=== PATIENT | male | born 1990 | race Caucasian/White ===

== ENCOUNTER 2018-08-01 15:58 | Inpatient (IN) | payer MEDICAID ==
[2018-08-01] MEDS ORDERED: SODIUM CHLORIDE 0.9% 1,000 ML IV STA ×3 (16:50→19:02)
[2018-08-01] MEDS ORDERED: AZITHROMYCIN 500 MG in SODIUM CHLORIDE 0.9% 250 ML IVPB STA (16:50)
[2018-08-01] MEDS ORDERED: methylPREDNISolone SOD SUCCI 125 MG/2 ML VIAL IV STA (16:50)
[2018-08-01] MEDS ORDERED: IPRATROPIUM-ALBUTEROL 3 ML NEB INHALATION STA (16:50)
[2018-08-01 17:17] LABS: Basophils % (A) 1 %; Eosinophils % (A) 0 %; HCT 41.9 % (39.0-53.0); HGB 13.8 gm/dL (13.0-17.5); Lymphocytes # (A) 1.3 k/uL (1.0-4.8); Lymphocytes % (A) 23 %; MCH 27.5 pg (25.0-35.0); MCV 83.5 fL (80.0-100.0); Mean Platelet Volume 7.2; Monocytes # (A) 0.2 k/uL (0-1.0); Monocytes % (A) 3 %; Neutrophils # (A) 3.9 k/uL (1.3-7.7); Neutrophils % (A) 69 %; Platelet Count 219 k/uL (150-450); RBC 5.01 m/uL (4.30-5.90); RDW 13.2 % (11.5-15.5); WBC 5.6 k/uL (3.8-10.6)
[2018-08-01 17:20] LABS: Albumin 3.4 g/dL (3.5-5.0); Calcium 8.5 mg/dL (8.4-10.2); Total Bilirubin 0.7 mg/dL (0.2-1.3); Total Protein 6.6 g/dL (6.3-8.2)
[2018-08-01 17:21] LABS: Potassium 4.5 mmol/L (3.5-5.1)
[2018-08-01] MEDS ORDERED: KETOROLAC 30 MG/ML 1 ML VIAL IVP STA (17:22)
[2018-08-01] MEDS ORDERED: ACETAMINOPHEN TAB 500 MG TAB PO STA (17:22)
--- NOTE | 2018-08-01 17:22 | ED ---
SOB HPI - General Chief Complaint: Shortness of Breath Stated Complaint: DARIN Source: patient, EMS Mode of arrival: EMS Limitations: no limitations - History of Present Illness Initial Comments: This 28-year-old white male presents with a complaint of some shortness of breath with chest been present for approximately 6 days. He states that he was seen at [facility] approximate 4 days ago and was prescribed some doxycycline and Tessalon Perles. He has had a significant cough with dark yellow production. He's ran a fever of approximate 100. He states that he does not have any known pulmonary problems. He does not smoke or utilize tobacco but states that he works in a [employer]. He has had some associated weakness. He has had decreased sleep due to the cough. He states that the medications do not seem to be helping. He was seen at [facility] earlier today and sent to the emergency department as his pulse ox was in the low 80s. In via ambulance. He had a couple of breathing treatments and med express in the ambulance and states that he feels slightly improved. He denies any other complaints or modifying factors. - Related Data Home Medications Medication Instructions Recorded Confirmed No Known Home Medications 08/01/18 08/01/18 Allergies Allergy/AdvReac Type Severity Reaction Status Date / Time No Known Allergies Allergy Verified 08/01/18 16:35 Review of Systems ROS Statement: Those systems with pertinent positive or pertinent negative responses have been documented in the HPI. ROS Other: All systems not noted in ROS Statement are negative. Past Medical History Past Medical History: No Reported History History of Any Multi-Drug Resistant Organisms: None Reported Past Surgical History: No Surgical Hx Reported Past Psychological History: No Psychological Hx Reported Smoking Status: Never smoker Past Alcohol Use History: Occasional Past Drug Use History: None Reported General Exam - General Exam Comments Initial Comments: GENERAL: The patient is well nourished and well hydrated. VITAL SIGNS: Heart rate, blood pressure, respiratory rate reviewed as recorded in nurse's notes. EYES: Pupils are round and reactive. Extraocular movements are intact. No conjunctival / lid redness or swelling. ENT: No external evidence of injury, swelling, or ecchymosis. Airway is patent. Throat is clear. NECK: Nontender. No swelling or evidence of injury. No subcutaneous emphysema. Trachea is midline. No thyroid mass. HEART: Regular rate and rhythm. Good peripheral pulses. LUNGS/CHEST: Decreased aeration noted bilaterally. No rales, rhonchi, or wheezes. No ecchymosis, subcutaneous emphysema, or tenderness. ABDOMEN: Abdomen soft without tenderness. No palpable masses or organomegaly. No peritoneal signs. No abdominal wall swelling or ecchymosis. Abdomen is obese. EXTREMITIES: No extremity tenderness. Normal muscle tone and function. No thoracolumbar tenderness. NEUROLOGIC: Sensation is grossly intact. Cranial nerve exam reveals face is symmetrical, tongue is midline, speech is clear. SKIN: No abrasions or ecchymosis is noted. No induration or masses noted. PSYCHIATRIC: Alert and oriented. Appropriate behavior and judgment. Limitations: no limitations Course Vital Signs 08/01/18 08/01/18 08/01/18 16:14 16:30 17:00 Temperature 100.4 F H Pulse Rate 102 H Respiratory 20 Rate Blood Pressure 141/96 141/96 138/87 O2 Sat by Pulse 94 L 95 94 L Oximetry 08/01/18 08/01/18 08/01/18 17:13 17:22 17:30 Temperature Pulse Rate 84 91 Respiratory Rate Blood Pressure 150/77 O2 Sat by Pulse 95 Oximetry 08/01/18 08/01/18 18:00 18:30 Temperature Pulse Rate Respiratory Rate Blood Pressure 161/91 148/93 O2 Sat by Pulse 94 L 95 Oximetry Medical Decision Making - Medical Decision Making The patient is seen and examined. All diagnostics are reviewed. An IV is established and he is hydrated. He also receives some Rocephin and Zithromax intravenously. He receives a DuoNeb breathing treatment as well as Solu-Medrol intravenously. The laboratory does show elevation of the CPK as well as the troponin the white blood cell count is normal. The chest x-ray shows bilateral pneumonia. His felt clinically that he has pneumonia as well. His EKG shows a normal sinus rhythm at a rate of 75. There is no acute ST T-wave changes other than T-wave inversion in 1 and aVL. His MS intervals 172, QRS duration is 112, QTC intervals 439. This felt as though he would benefit from admission to the hospital. His oxygenation was in the low 80s at the urgent care. He is agreeable. The case is discussed with internal medicine and they're agreeable with admission. - Lab Data Result diagrams: 08/01/18 16:11 08/01/18 16:11 Lab Results 08/01/18 08/01/18 08/01/18 Range/Units 16:11 16:11 16:11 WBC 5.6 (3.8-10.6) k/uL RBC 5.01 (4.30-5.90) m/uL Hgb 13.8 (13.0-17.5) gm/dL Hct 41.9 (39.0-53.0) % MCV 83.5 (80.0-100.0) fL MCH 27.5 (25.0-35.0) pg MCHC 33.0 (31.0-37.0) g/dL RDW 13.2 (11.5-15.5) % Plt Count 219 (150-450) k/uL Neutrophils % 69 % Lymphocytes % 23 % Monocytes % 3 % Eosinophils % 0 % Basophils % 1 % Neutrophils # 3.9 (1.3-7.7) k/uL Lymphocytes # 1.3 (1.0-4.8) k/uL Monocytes # 0.2 (0-1.0) k/uL Eosinophils # 0.0 (0-0.7) k/uL Basophils # 0.0 (0-0.2) k/uL PT (9.0-12.0) sec INR (<1.2) APTT (22.0-30.0) sec Sodium 132 L (137-145) mmol/L Potassium 4.5 (3.5-5.1) mmol/L Chloride 98 (98-107) mmol/L Carbon Dioxide 24 (22-30) mmol/L Anion Gap 10 mmol/L BUN 25 H (9-20) mg/dL Creatinine 1.25 (0.66-1.25) mg/dL Est GFR (CKD-EPI)AfAm 89 (>60 ml/min/1.73 sqM) Est GFR (CKD-EPI)NonAf 77 (>60 ml/min/1.73 sqM) Glucose 104 H (74-99) mg/dL Calcium 8.5 (8.4-10.2) mg/dL Total Bilirubin 0.7 (0.2-1.3) mg/dL AST 135 H (17-59) U/L ALT 54 (21-72) U/L Alkaline Phosphatase 62 (38-126) U/L Total Creatine Kinase 5198 H* (55-170) U/L CK-MB (CK-2) 6.6 H (0.0-2.4) ng/mL CK-MB (CK-2) Rel Index Troponin I 0.174 H* (0.000-0.034) ng/mL NT-Pro-B Natriuret Pep pg/mL Total Protein 6.6 (6.3-8.2) g/dL Albumin 3.4 L (3.5-5.0) g/dL 08/01/18 08/01/18 Range/Units 16:11 16:11 WBC (3.8-10.6) k/uL RBC (4.30-5.90) m/uL Hgb (13.0-17.5) gm/dL Hct (39.0-53.0) % MCV (80.0-100.0) fL MCH (25.0-35.0) pg MCHC (31.0-37.0) g/dL RDW (11.5-15.5) % Plt Count (150-450) k/uL Neutrophils % % Lymphocytes % % Monocytes % % Eosinophils % % Basophils % % Neutrophils # (1.3-7.7) k/uL Lymphocytes # (1.0-4.8) k/uL Monocytes # (0-1.0) k/uL Eosinophils # (0-0.7) k/uL Basophils # (0-0.2) k/uL PT 10.7 (9.0-12.0) sec INR 1.1 (<1.2) APTT 26.7 (22.0-30.0) sec Sodium (137-145) mmol/L Potassium (3.5-5.1) mmol/L Chloride (98-107) mmol/L Carbon Dioxide (22-30) mmol/L Anion Gap mmol/L BUN (9-20) mg/dL Creatinine (0.66-1.25) mg/dL Est GFR (CKD-EPI)AfAm (>60 ml/min/1.73 sqM) Est GFR (CKD-EPI)NonAf (>60 ml/min/1.73 sqM) Glucose (74-99) mg/dL Calcium (8.4-10.2) mg/dL Total Bilirubin (0.2-1.3) mg/dL AST (17-59) U/L ALT (21-72) U/L Alkaline Phosphatase (38-126) U/L Total Creatine Kinase (55-170) U/L CK-MB (CK-2) (0.0-2.4) ng/mL CK-MB (CK-2) Rel Index Troponin I (0.000-0.034) ng/mL NT-Pro-B Natriuret Pep 486 pg/mL Total Protein (6.3-8.2) g/dL Albumin (3.5-5.0) g/dL Disposition Clinical Impression: Acute respiratory failure, Dyspnea, Hypoxia, Fever, Morbid obesity, Pneumonia, Elevated CPK, Elevated troponin Disposition: ADMITTED IP TO THIS HOSP Condition: Fair Is patient prescribed a controlled substance at d/c from ED?: No Time of Disposition: 19:13 Decision Date: 08/01/18 Decision Time: 19:14
[2018-08-01 17:28] LABS: INR 1.1 (<1.2); Partial Thromboplastin Time 26.7 sec (22.0-30.0); Prothrombin Time 10.7 sec (9.0-12.0)
[2018-08-01 17:35] LABS: Creatine Kinase MB 6.6 ng/mL (0.0-2.4)
[2018-08-01 17:47] LABS: Troponin I 0.174 ng/mL (0.000-0.034)
--- NOTE | 2018-08-01 18:30 | XR ---
EXAMINATION: XR chest 2V DATE AND TIME: 08/01/2018 5:54 PM CLINICAL INDICATION: difficulty breathing TECHNIQUE: PA and lateral COMPARISON: None. FINDINGS: There are innumerable ill-defined consolidative opacities throughout the bilateral lungs, in the uppe r, mid and lower lung zones. The pleural spaces appear to be negative. Cardiac silhouette is mildly enlarged. No definite acute skeletal or soft tissue findings. IMPRESSION: STRIKING MULTIFOCAL BILATERAL BRONCHOPNEUMONIA RADIOGRAPHIC PATTERN.
[2018-08-01] MEDS ORDERED: PNEUMONIA PROTOCOL UTILIZED 1 EACH MISC PO PRN (19:14)
[2018-08-01] MEDS ORDERED: ACETAMINOPHEN TAB 500 MG TAB PO PRN (19:18)
[2018-08-01] MEDS ORDERED: OSELTAMIVIR 75 MG CAP PO STA (20:23)
[2018-08-01 23:24] LABS: Creatine Kinase MB 7.5 ng/mL (0.0-2.4)
[2018-08-01 23:55] LABS: Troponin I 0.142 ng/mL (0.000-0.034)
--- NOTE | 2018-08-02 00:15 | P.HPIM ---
History of Present Illness H&P Date: 08/02/18 Chief Complaint: coughing , chest pain 28-year-old male with no significant past medical history. Patient presented to the hospital due to worsening shortness of breath and chest pain over the past 1 week. Patient's symptoms started 1 week ago as diffuse chest pain or shortness of breath and frequent coughing productive of yellowish sputum with component of pleuritic chest pain on top. Patient also noticed some attacks of fever with temps ranging in the 100 and high drainage. Patient seek medical advice went to urgent care few days ago where he got prescribed cough suppressant and doxycycline. Patient noticed no improvement in his symptoms and today he was getting worse having a really hard time breathing he went back to the urgent care and was found to be hypoxic with oxygen saturation in the 80s. For which she was sent to the ER. Further testing in the ER showed flu a positive, elevated cardiac enzymes, elevated creatine kinase, EKG showing poor R-wave progression in the precordial leads along with T-wave inversion in lead 1 and aVL. Patient was admitted for community-acquired pneumonia superimposing acute flu A, with possible underlying myocarditis Patient is currently sleeping reports that his breathing is getting better after receiving breathing treatments in the ED, denies any current chest pain, denies any GI bleeding denies any abdominal pain nausea vomiting denies any changes in his bowel or urinary habits denies any recent traveling or sick contacts. Patient does admit to generalized fatigue and malaise and feeling very sick overall. Review of Systems Pertinent positives as noted in HPI. All other systems were reviewed and are negative Past Medical History Past Medical History: No Reported History Additional Past Medical History / Comment(s): pt denies any medical problems History of Any Multi-Drug Resistant Organisms: None Reported Past Surgical History: No Surgical Hx Reported Additional Past Surgical History / Comment(s): pt denies having had any sx Past Anesthesia/Blood Transfusion Reactions: No Reported Reaction Additional Past Anesthesia/Blood Transfusion Reaction / Comment(s): pt stated never had any sx, never recieved any blood Smoking Status: Never smoker - Past Family History Mother Family Medical History: Cancer, Diabetes Mellitus Additional Family Medical History / Comment(s): breast cancer Father Family Medical History: Congestive Heart Failure (CHF), Coronary Artery Disease (CAD), Diabetes Mellitus Additional Family Medical History / Comment(s): heart cath w/stents prior to quad cabg Medications and Allergies Home Medications Medication Instructions Recorded Confirmed Type No Known Home Medications 08/01/18 08/01/18 History Allergies Allergy/AdvReac Type Severity Reaction Status Date / Time No Known Allergies Allergy Verified 08/01/18 16:35 Physical Exam Vitals: Vital Signs Temp Pulse Resp BP Pulse Ox 08/01/18 20:01 73 18 149/84 96 08/01/18 19:46 98.8 F 79 18 156/90 96 08/01/18 18:30 148/93 95 08/01/18 18:00 161/91 94 L 08/01/18 17:30 150/77 95 08/01/18 17:22 91 08/01/18 17:13 84 08/01/18 17:00 138/87 94 L 08/01/18 16:30 141/96 95 08/01/18 16:14 100.4 F H 102 H 20 141/96 94 L Intake and Output 08/01/18 08/01/18 08/02/18 14:59 22:59 06:59 Intake Total 1480 Balance 1480 Intake: IV 1000 Sodium Chloride 0.9% 1, 1000 000 ml @ 100 mls/hr IV . Q10H STA Rx#:[id number] Oral 480 Other: Weight 158.757 kg Constitutional: No acute distress, conversant, pleasant, patient was sleeping and was diaphoretic, morbidly obese Eyes: Anicteric sclerae, moist conjunctiva, no lid-lag Pupils equal round reactive to light ENMT: NC/AT Oropharynx clear, no erythema, or exudates Neck: Supple, FROM, no masses, or JVD No carotid bruits No thyromegaly Lungs: Good breath sounds bilaterally harsh vesicular breathing throughout Clear to percussion Normal respiratory effort, no accessory muscle use Cardiovascular: Heart regular in rate and rhythm, No murmurs, gallops, or rubs No peripheral edema Abdominal: Soft Nontender, no guarding, rebound or rigidity Abdomen moving with respiration Normoactive bowel sounds No hepatomegaly, No splenomegaly No palpable mass No abdominal wall hernia noted Skin: Normal temperature, tone, texture, turgor No induration No subcutaneous nodules No rash, lesions No ulcers Extremities: No digital cyanosis No clubbing Pedal pulses intact and symmetrical Radial pulses intact and symmetrical No calf tenderness Psychiatric: Alert and oriented to person, place and time Appropriate affect fair judgment Neuro Muscles Strength 5/5 in all 4 extremities Sensation to light touch grossly present throughout Cranial nerves II-XII grossly intact No focal sensory deficits Lymphatics: no palpable cervical or supraclavicular , or inguinal lymph nodes Results CBC & Chem 7: 08/01/18 16:11 08/01/18 16:11 Labs: Abnormal Lab Results - Last 24 Hours (Table) 08/01/18 08/01/18 08/01/18 Range/Units 16:11 16:11 19:44 Sodium 132 L (137-145) mmol/L BUN 25 H (9-20) mg/dL Glucose 104 H (74-99) mg/dL AST 135 H (17-59) U/L Total Creatine Kinase 5198 H* (55-170) U/L CK-MB (CK-2) 6.6 H (0.0-2.4) ng/mL Troponin I 0.174 H* (0.000-0.034) ng/mL Albumin 3.4 L (3.5-5.0) g/dL Influenza Type A RNA Detected H (Not Detectd) Thrombosis Risk Factor Assmnt - Choose All That Apply Any of the Below Risk Factors Present?: Yes Each Factor Represents 1 point: Obesity (BMI >25) Other Risk Factors: No Thrombosis Risk Factor Assessment Total Risk Factor Score: 1 Thrombosis Risk Factor Assessment Level: Low Risk Assessment and Plan Assessment: 28-year-old male with no significant past medical history, admitted as inpatient with anticipated length of stay of more than 48 hours due to coming to acquire pneumonia superimposing influenza type A, with possible underlying myocarditis. Patient admitted to the cardiac floor, continued trending cardiac enzymes, echocardiogram in the morning, cardiology consult. Avoid NSAIDs Plan: Acute myocarditis Acute community-acquired pneumonia, with underlying influenza type A Cardiac monitoring Trend cardiac enzymes Cardiology consult Echocardiogram Tylenol for fevers Continue with Rocephin and azithromycin for possible superimposed bacterial pneumonia Tamiflu twice a day ( due to severity of illness despite patient possibly being out of the most effective therapeutic window of initial 48 hours of symptom onset) Breathing treatments when necessary Oxygen through nasal cannula as needed Rhabdomyolysis secondary to underlying flu IV fluid hydration Follow-up CK levels DVT prophylaxis on Lovenox Morbid obesity Outpatient follow-up Surrogate decision-maker: Patient's father CODE STATUS: Full code Discussed with: Patient, ER, RN Anticipated discharge: 48-[address]: Home A total of 60 minutes was spent on the care of this complex patient more than 50 % of the time was spent in counseling and care coordination.
[2018-08-02] MEDS ORDERED: guaiFENesin-DM 100-10MG/5ML 10 ML CUP PO PRN (01:51)
[2018-08-02 04:15] LABS: Basophils % (A) 0 %; Eosinophils # (A) 0.1 k/uL (0-0.7); Eosinophils % (A) 1 %; HCT 43.8 % (39.0-53.0); HGB 14.4 gm/dL (13.0-17.5); Lymphocytes % (A) 12 %; MCHC 32.9 g/dL (31.0-37.0); Monocytes # (A) 0.2 k/uL (0-1.0); Monocytes % (A) 2 %; Neutrophils # (A) 6.6 k/uL (1.3-7.7); Neutrophils % (A) 83 %; Platelet Count 209 k/uL (150-450); RBC 5.15 m/uL (4.30-5.90); RDW 13.5 % (11.5-15.5); WBC 7.9 k/uL (3.8-10.6)
[2018-08-02 04:25] LABS: ALT 67 U/L (21-72); AST 125 U/L (17-59); Albumin 3.2 g/dL (3.5-5.0); Alkaline Phosphatase 66 U/L (38-126); Anion Gap 7 mmol/L; Blood Urea Nitrogen 25 mg/dL (9-20); Calcium 8.4 mg/dL (8.4-10.2); Carbon Dioxide 29 mmol/L (22-30); Chloride 100 mmol/L (98-107); Glucose 169 mg/dL (74-99); Potassium 4.5 mmol/L (3.5-5.1); Sodium 136 mmol/L (137-145); Total Bilirubin 0.4 mg/dL (0.2-1.3); Total Protein 6.3 g/dL (6.3-8.2)
[2018-08-02 05:04] LABS: Creatine Kinase 4683 U/L (55-170)
[2018-08-02 05:06] LABS: Creatine Kinase MB 9.7 ng/mL (0.0-2.4)
[2018-08-02 05:11] LABS: Troponin I 0.07 ng/mL (0.000-0.034)
[2018-08-02 06:52] LABS: Glucose,Whole Blood 178 mg/dL (75-99)
[2018-08-02] MEDS: ENOXAPARIN 40 MG/0.4 ML SYRINGE SQ SCH (09:03)
[2018-08-02] MEDS: OSELTAMIVIR 75 MG CAP PO SCH ×2 (09:03→20:41)
[2018-08-02] MEDS: SODIUM CHLORIDE 0.9% 1,000 ML IV SCH ×3 (09:04→20:41)
--- NOTE | 2018-08-02 09:48 | P.PN ---
Subjective Progress Note Date: 08/02/18 Principal diagnosis: shortness of breath Patient is a 28-year-old male with a past medical history of morbid obesity, family history of coronary artery disease and congestive heart failure who presented to the ER with complaints of shortness of breath and chest tightness. In the ER he underwent extensive testing. He was found to have influenza A, elevated troponin, elevated creatinine kinase, and EKG showing poor R-wave progression and T-wave inversion. He was in his given a dose of Tamiflu, and started on Rocephin and Zithromax. There was concern for influenza A with superimposed pneumonia and possible myocarditis. He was subsequently admitted to the cardiac unit and cardiology was consulted. Serial troponins remained elevated. His CPK downtrend and slightly after IV fluids. Patient seen and examined at bedside. He states he is feeling much better than yesterday. His shortness of breath is improved. He is still very diaphoretic. His chest tightness is improved. His cough is more easily productive. No nausea or vomiting. No diarrhea. No edema. He has only urinated once all night despite IV fluid administration. Objective - Vital Signs Vital signs: Vital Signs Temp 98.7 F 08/02/18 09:08 Pulse 85 08/02/18 09:08 Resp 22 08/02/18 09:08 BP 142/86 08/02/18 09:08 Pulse Ox 91 L 08/02/18 09:08 Intake & Output 08/01/18 08/02/18 08/02/18 18:59 06:59 18:59 Intake Total 3440 Balance 3440 Weight 158.757 kg 216.5 kg Intake: IV 2000 Sodium Chloride 0.9% 1, 2000 000 ml @ 100 mls/hr IV . Q10H STA Rx#:[id number] Oral 1440 Other: Voiding Method Toilet Toilet - Exam General: Ill appearing, mild distress, obese, appears at stated age Derm: warm, diaphoretic Head: atraumatic, normocephalic, symmetric Eyes: EOMI, no lid lag, anicteric sclera Mouth: no lip lesion, mucus membranes moist Cardiovascular: S1S2 reg, no murmur, positive posterior tibial pulse bilateral, Lungs: Rhonchi bilateral bases with 3 word conversational dyspnea, no accessory muscle use Abdominal: soft, nontender to palpation, no guarding, no appreciable organomegaly Ext: no gross muscle atrophy, no edema, no contractures Neuro: CN II-XI grossly intact, no focal neuro deficits Psych: Alert, oriented, appropriate affect - Labs CBC & Chem 7: 08/02/18 03:56 08/02/18 03:56 Labs: Abnormal Lab Results - Last 24 Hours (Table) 08/01/18 08/01/18 08/01/18 Range/Units 16:11 16:11 19:44 Sodium 132 L (137-145) mmol/L BUN 25 H (9-20) mg/dL Glucose 104 H (74-99) mg/dL POC Glucose (mg/dL) (75-99) mg/dL AST 135 H (17-59) U/L Creatine Kinase (55-170) U/L Total Creatine Kinase 5198 H* (55-170) U/L CK-MB (CK-2) 6.6 H (0.0-2.4) ng/mL Troponin I 0.174 H* (0.000-0.034) ng/mL Albumin 3.4 L (3.5-5.0) g/dL Influenza Type A RNA Detected H (Not Detectd) 08/01/18 08/02/18 08/02/18 Range/Units 22:32 03:56 03:56 Sodium 136 L (137-145) mmol/L BUN 25 H (9-20) mg/dL Glucose 169 H (74-99) mg/dL POC Glucose (mg/dL) (75-99) mg/dL AST 125 H (17-59) U/L Creatine Kinase 4683 H* (55-170) U/L Total Creatine Kinase 5067 H* 4769 H* (55-170) U/L CK-MB (CK-2) 7.5 H 9.7 H (0.0-2.4) ng/mL Troponin I 0.142 H* 0.070 H* (0.000-0.034) ng/mL Albumin 3.2 L (3.5-5.0) g/dL Influenza Type A RNA (Not Detectd) 08/02/18 Range/Units 06:18 Sodium (137-145) mmol/L BUN (9-20) mg/dL Glucose (74-99) mg/dL POC Glucose (mg/dL) 178 H (75-99) mg/dL AST (17-59) U/L Creatine Kinase (55-170) U/L Total Creatine Kinase (55-170) U/L CK-MB (CK-2) (0.0-2.4) ng/mL Troponin I (0.000-0.034) ng/mL Albumin (3.5-5.0) g/dL Influenza Type A RNA (Not Detectd) Assessment and Plan Assessment: Pneumonia, probable post-influenza along with influenza A -Continue with Rocephin and Zithromax, and Tamiflu. Would use Tamiflu despite limited evidence of severity of illness despite being greater than the treatment window as per current CDC guidelines -Follow chest x-ray until clear -Pulmonary hygiene -Sputum culture -DuoNeb Elevated troponin with concerns for myocarditis. Elevated troponin may be reflective of overall elevated CK. -Await echocardiogram -Await cardiology consultation -Telemetry Mild rhabdomyolysis -Continue with IV fluids increased to 150 mL/h -Serial CPKs every 6 hours Hyponatremia secondary to dehydration, improving -IV fluids -Repeat basic metabolic profile in a.m. -Encourage oral fluid intake Acute hypoxic respiratory failure -Pulmonary hygiene -DuoNeb's -Treatment of pneumonia Morbid obesity with BMI 63 -Structured outpatient weight loss DVT prophylaxis: Lovenox Discussed with: Patient, nursing Anticipated discharge: 48-[address]: Home A total of 35 minutes was spent on the care of this complex patient more than 50 % of the time was spent in counseling and care coordination.
--- NOTE | 2018-08-02 10:40 | P.CRDCN ---
History of Present Illness Consult date: 08/02/18 Requesting physician: Dillon Lerner Reason for Consult (text): Abnormal cardiac enzymes Chief complaint: Fever, cough, generalized aches and pains History of present illness: This is a 28-year-old gentleman with past medical history significant for morbid obesity, family history of premature coronary artery disease and congestive heart failure, he presented to the hospital with symptoms of shortness of breath with associated productive cough and chest tightness. He states that he went to a walk-in clinic to get evaluated and was given some medications for cough, however his symptoms continued to worsen and therefore he came to the hospital for further evaluation. Patient ruled in for influenza A, he was given a dose of Tamiflu and started on Rocephin and Zithromax. There is a concern patient may have a superimposed pneumonia and possible myocarditis , CK-MB and troponins are abnormal and for this reason a cardiology consultation was requested. Blood pressure on arrival here 140/90 with a heart rate in the low 100s, temperature 100.4, 94% on 5 L of oxygen. Blood pressure this morning 142/80, 91% on 4 L of oxygen. White blood cell count is normal, hemoglobin 14.4, platelet count 209. Sodium 136, potassium 4.5, BUN 25, creatinine 1.1. AST 125, ALT normal. Total creatinine kinase 5198, 5067, 4769. MB 6.6, 7.5, 9.7. Troponin 0.17, 0.14, 0.07. Influenza A positive BNP 486. At the time of my examination this morning, patient denies any chest discomfort, he is quite short of breath, very diaphoretic, and continues to cough up significant amounts of yellow to maier sputum. Chest x-ray shows striking multi focal bilateral bronchopneumonia. EKG shows a normal sinus rhythm with T wave inversion noted in the lateral leads. Past Medical History Past Medical History: No Reported History Additional Past Medical History / Comment(s): pt denies any medical problems History of Any Multi-Drug Resistant Organisms: None Reported Past Surgical History: No Surgical Hx Reported Additional Past Surgical History / Comment(s): pt denies having had any sx Past Anesthesia/Blood Transfusion Reactions: No Reported Reaction Additional Past Anesthesia/Blood Transfusion Reaction / Comment(s): pt stated never had any sx, never recieved any blood Smoking Status: Never smoker - Past Family History Mother Family Medical History: Cancer, Diabetes Mellitus Additional Family Medical History / Comment(s): breast cancer Father Family Medical History: Congestive Heart Failure (CHF), Coronary Artery Disease (CAD), Diabetes Mellitus Additional Family Medical History / Comment(s): heart cath w/stents prior to quad cabg Medications and Allergies Home Medications Medication Instructions Recorded Confirmed Type No Known Home Medications 08/01/18 08/01/18 History Allergies Allergy/AdvReac Type Severity Reaction Status Date / Time No Known Allergies Allergy Verified 08/01/18 16:35 Physical Exam Vitals: Vital Signs Temp Pulse Pulse Resp BP BP Pulse Ox 08/02/18 09:08 98.7 F 85 20 142/86 91 L 08/02/18 04:00 97.1 F L 68 22 152/87 98 08/02/18 00:00 97.8 F 71 22 164/74 92 L 08/01/18 20:01 73 18 149/84 96 08/01/18 19:46 98.8 F 79 18 156/90 96 08/01/18 18:30 148/93 95 08/01/18 18:00 161/91 94 L 08/01/18 17:30 150/77 95 08/01/18 17:22 91 08/01/18 17:13 84 08/01/18 17:00 138/87 94 L 08/01/18 16:30 141/96 95 08/01/18 16:14 100.4 F H 102 H 20 141/96 94 L Intake and Output 08/01/18 08/02/18 08/02/18 22:59 06:59 14:59 Intake Total 1480 1960 Balance 1480 1960 Intake: IV 1000 1000 Sodium Chloride 0.9% 1, 1000 1000 000 ml @ 100 mls/hr IV . Q10H STA Rx#:[id number] Oral 480 960 Other: Voiding Method Toilet Toilet Weight 158.757 kg 216.5 kg PHYSICAL EXAMINATION: GENERAL: Ill-appearing, obese, in mild distress with his breathing this morning. Diaphoretic. HEENT: Head is atraumatic, normocephalic. Pupils equal, round. Sclera anicteric. Conjunctiva are clear. Mucous membranes of the mouth are moist. Neck is supple. There is no elevated jugular venous pressure. No carotid bruit is heard. HEART EXAMINATION: Heart S1, S2 normal. No murmur or gallop heard. CHEST EXAMINATION: Ends reveal scattered coarse rhonchi throughout. ABDOMEN: Soft, obese, nontender. Bowel sounds are heard. No organomegaly noted. EXTREMITIES: 1+ peripheral pulses with evidence of peripheral edema and no calf tenderness noted. NEUROLOGIC patient is awake, alert and oriented X3. . Results 08/02/18 03:56 08/02/18 03:56 Cardiac Enzymes 08/01/18 08/01/18 08/01/18 Range/Units 16:11 16:11 22:32 AST 135 H (17-59) U/L CK-MB (CK-2) 6.6 H 7.5 H (0.0-2.4) ng/mL Troponin I 0.174 H* 0.142 H* (0.000-0.034) ng/mL 08/02/18 08/02/18 Range/Units 03:56 03:56 AST 125 H (17-59) U/L CK-MB (CK-2) 9.7 H (0.0-2.4) ng/mL Troponin I 0.070 H* (0.000-0.034) ng/mL Coagulation 08/01/18 Range/Units 16:11 PT 10.7 (9.0-12.0) sec APTT 26.7 (22.0-30.0) sec CBC 08/01/18 08/02/18 Range/Units 16:11 03:56 WBC 5.6 7.9 (3.8-10.6) k/uL RBC 5.01 5.15 (4.30-5.90) m/uL Hgb 13.8 14.4 (13.0-17.5) gm/dL Hct 41.9 43.8 (39.0-53.0) % Plt Count 219 209 (150-450) k/uL Comprehensive Metabolic Panel 08/01/18 08/02/18 Range/Units 16:11 03:56 Sodium 132 L 136 L (137-145) mmol/L Potassium 4.5 4.5 (3.5-5.1) mmol/L Chloride 98 100 (98-107) mmol/L Carbon Dioxide 24 29 (22-30) mmol/L BUN 25 H 25 H (9-20) mg/dL Creatinine 1.25 1.11 (0.66-1.25) mg/dL Glucose 104 H 169 H (74-99) mg/dL Calcium 8.5 8.4 (8.4-10.2) mg/dL AST 135 H 125 H (17-59) U/L ALT 54 67 (21-72) U/L Alkaline Phosphatase 62 66 (38-126) U/L Total Protein 6.6 6.3 (6.3-8.2) g/dL Albumin 3.4 L 3.2 L (3.5-5.0) g/dL Current Medications Generic Name Dose Route Start Last Admin Trade Name Freq PRN Reason Stop Dose Admin Acetaminophen 1,000 mg 08/01/18 19:18 Tylenol Tab PO Q6H PRN Fever Albuterol/Ipratropium 3 ml 08/01/18 19:14 Duoneb 0.5 Mg-3 Mg/3 Ml Soln INHALATION RT-Q4H PRN shortness of breath Enoxaparin Sodium 40 mg 08/02/18 09:00 08/02/18 09:03 Lovenox SQ 40 mg DAILY TEQUILA Administration Guaifenesin/Dextromethorphan 10 ml 08/02/18 01:51 08/02/18 03:55 Robitussin Dm PO 10 ml Q6H PRN Administration Cough Azithromycin 500 mg/ Sodium 250 mls @ 250 mls/hr 08/02/18 18:00 Chloride IVPB DAILY@1800 TEQUILA Ceftriaxone Sodium 1,000 mg/ 50 mls @ 100 mls/hr 08/02/18 09:00 08/02/18 09: 03 Sodium Chloride IVPB 08/05/18 09:01 100 mls/hr Q24HR TEQUILA Administration Sodium Chloride 1,000 mls @ 150 mls/hr 08/02/18 08:00 08/02/18 09:04 Saline 0.9% IV 150 mls/hr .Q6H40M TEQUILA Administration Miscellaneous Information 1 each 08/01/18 19:14 Pneumonia Protocol Utilized PO ONCE PRN Per Protocol Oseltamivir Phosphate 75 mg 08/02/18 09:00 08/02/18 09:03 Tamiflu PO 08/06/18 09:01 75 mg Q12HR TEQUILA Administration Intake and Output 08/01/18 08/02/1808/02/18 22:59 06:59 14:59 Intake Total 1480 1959 Balance 1480 1959 Intake: IV 1000 1000 Sodium Chloride 0.9% 1, 1000 1000 000 ml @ 100 mls/hr IV . Q10H STA Rx#:[id number] Oral 480 960 Other: Voiding Method Toilet Toilet Weight 158.757 kg 216.5 kg 08/02/18 03:56 08/02/18 03:56 EKG Interpretations (text) EKG shows a normal sinus rhythm with T wave inversion in the lateral leads, left ventricular hypertrophy. Assessment and Plan Plan: Assessment and plan #1 pneumonia with evidence of influenza A, patient is currently on Rocephin and Zithromax, did receive Tamiflu. #2 abnormal CK-MB and troponin, mild rhabdomyolysis, rule out myocarditis. Echo is been ordered. #3 hyponatremia #4 acute hypoxic respiratory failure likely secondary to pneumonia #5 morbid obesity #6 family history of premature coronary artery disease Plan We will obtain an echocardiogram with Doppler study. Continue antibiotics. Patient is to follow. DNP note has been reviewed, I agree with a documented findings and plan of care. Patient was seen and examined.
[2018-08-02 11:35] LABS: Glucose,Whole Blood 129 mg/dL (75-99)
--- NOTE | 2018-08-02 11:44 | ECHOF ---
Referral Reason:sob MEASUREMENTS -------- HEIGHT: 182.9 cm WEIGHT: 216.4 kg BP: 152/87 IVSd: 1.5 cm (0.6 - 1.1) LVIDd: 6.3 cm (3.9 - 5.3) LVPWd: 2.0 cm (0.6 - 1.1) IVSs: 2.0 cm LVIDs: 4.6 cm LVPWs: 2.0 cm Ao Diam: 3.4 cm (2.0 - 3.7) LA Diam: 4.5 cm (2.7 - 3.8) MV EXCURSION: 16.486 mm (> 18.000) MV EF SLOPE: 91 mm/s (70 - 150) EPSS: 1.3 cm MV E Landen: 1.17 m/s MV DecT: 110 ms MV A Landen: 0.53 m/s MV E/A Ratio: 2.20 RAP: 5.00 mmHg RVSP: 9.42 mmHg FINDINGS -------- Sinus rhythm. Morbid Obesity This was a techncally difficult study with suboptimal views, , Lumason utilized for enhancement of im ages. The left ventricular size is normal. There is moderate concentric left ventricular hypertrophy. O verall left ventricular systolic function is mild-moderately impaired with, an EF between 40 - 45 %. The right ventricle is normal in size. The left atrial size is normal. The right atrial size is normal. 5.0mg OF Lumason UTLIZED: 2 OR MORE WALL SEGMENTS NOT VISUALIZED. The aortic valve is trileaflet, and appears structurally normal. No aortic stenosis or regurgitation. Mild mitral regurgitation is present. Mild tricuspid regurgitation present. There is no evidence of pulmonary hypertension. The right v entricular systolic pressure, as measured by Doppler, is 9.42mmHg. The pulmonic valve was not well visualized. The aortic root size is normal. There is no pericardial effusion. CONCLUSIONS -------- 1. Morbid Obesity 2. This was a techncally difficult study with suboptimal views, , Lumason utilized for enhancement of images. 3. The left ventricular size is normal. 4. There is moderate concentric left ventricular hypertrophy. 5. Overall left ventricular systolic function is mild-moderately impaired with, an EF between 40 - 45 %. 6. The right ventricle is normal in size. 7. The left atrial size is normal. 8. The right atrial size is normal. 9. 5.0mg OF Lumason UTLIZED: 2 OR MORE WALL SEGMENTS NOT VISUALIZED. 10. The aortic valve is trileaflet, and appears structurally normal. No aortic stenosis or regurgitat ion. 11. Mild mitral regurgitation is present. 12. Mild tricuspid regurgitation present. 13. There is no evidence of pulmonary hypertension. 14. The right ventricular systolic pressure, as measured by Doppler, is 9.42mmHg. 15. The pulmonic valve was not well visualized. 16. The aortic root size is normal. 17. There is no pericardial effusion. COSMETIC SALES ASSISTANT: Zuleima Rothman RDCS
--- NOTE | 2018-08-02 15:23 | P.PN ---
Progress Note - Text Progress Note Date: 08/02/18 Hospitalist Interval Note Call the patient regarding hypoxemia Patient seen and examined at bedside. He denies any worsening shortness of breath. His cough is now more productive and he is getting out bright red hemoptysis. He is having a slight headache. No unusual chest pressure. We discussed the fact that he now is having more accessory muscle use sternal retractions and requiring more oxygen. We also discussed the fact that his EF has come back at 45%. We discussed his worsening respiratory status need for repeat ABG, chest x-ray, transfer to ICU, and possible BiPAP/intubation. Vital signs reviewed General: [non toxic], [no distress], [appears at stated age] Derm: [warm], [dry] Head: [atraumatic], [normocephalic], [symmetric] Eyes: [EOMI], [no lid lag], [anicteric sclera] Mouth: [no lip lesion], [mucus membranes moist] Cardiovascular: [S1S2 reg], [no murmur], [positive posterior tibial pulse bilateral], Lungs: [CTA bilateral], [no rhonchi, no rales] , [no accessory muscle use] Abdominal: [soft], [ nontender to palpation], [no guarding], [no appreciable organomegaly] Ext: [no gross muscle atrophy], [no edema], [no contractures] Neuro: [ CN II-XI grossly intact], [no focal neuro deficits] Psych: [Alert], [oriented], [appropriate affect] Assessment/Plan: 1. Acute hypoxic respiratory failure, pneumonia, influenza, sepsis- check stat ABG, Lasix 40 IV push every 12 hours, chest x-ray, Solu-Medrol, consult pulmonary discussed with pulmonary GARAGE MECHANIC, transferred ICU, possible BiPAP 2. Acute systolic congestive heart failure with EF 45%-beta lyle started by cardiology, Lasix IV push
[2018-08-02] MEDS: ASPIRIN 81 MG PO SCH (15:30)
[2018-08-02] MEDS: methylPREDNISolone SOD SUCCI 125 MG/2 ML VIAL IV SCH ×2 (15:30→22:00)
[2018-08-02] MEDS: FUROSEMIDE 10 MG/ML 4 ML VIAL IV SCH ×2 (15:31→23:12)
[2018-08-02 15:42] LABS: ABG Base Excess 1.1 mmol/L; ABG HCO3 27 mmol/L (21-25); ABG Oxygen Saturation 95.3 % (94-97); ABG PCO2 50 mmHg (35-45); ABG PH 7.34 (7.35-7.45); ABG PO2 76 mmHg (83-108); ABG TCO2 29 mmol/L (19-24)
--- NOTE | 2018-08-02 15:49 | XR ---
EXAMINATION TYPE: XR chest 1V portable DATE OF EXAM: 08/02/2018 COMPARISON: Prior chest x-ray 08/01/2018 HISTORY: Shortness of breath and cough TECHNIQUE: Single frontal view of the chest is obtained. FINDINGS: There is interval progression of the bilateral airspace disease. No evident pneumothorax. Heart may be enlarged but is obscured. No evident pleural effusion. IMPRESSION: Correlate for pulmonary edema versus pneumonia. Follow-up is recommended.
[2018-08-02 15:53] LABS: Glucose,Whole Blood 142 mg/dL (75-99)
[2018-08-02] MEDS: IPRATROPIUM-ALBUTEROL 3 ML NEB INHALATION PRN ×3 (16:36→23:33)
[2018-08-02] MEDS ORDERED: ACETAMINOPHEN IV (For NPO) 1,000 MG in EMPTY BAG 1 BAG IVPB ONE (17:00)
[2018-08-02] MEDS ORDERED: VANCOMYCIN IV PER PHARMACY 1 EACH MISC MISCELLANE PRN (17:09)
[2018-08-02 17:52] LABS: Appearance,Urine Clear (Clear); Bilirubin,Urine Negative (Negative); Blood,Urine Small (Negative); Color,Urine Yellow; Glucose,Urine (UA) Negative (Negative); Ketones,Urine Negative (Negative); Leukocyte Esterase,Urine Negative (Negative); Mucus,Urine Rare /hpf; Nitrite,Urine Negative (Negative); Protein,Urine 1+ (Negative); RBC,Urine <1 /hpf (0-5); Squamous Epithelial Cell,Urine <1 /hpf (0-4); Urobilinogen,Urine <2.0 mg/dL (<2.0); WBC,Urine 1 /hpf (0-5)
[2018-08-02] MEDS ORDERED: VANCOMYCIN 2,500 MG in SODIUM CHLORIDE 0.9% 500 ML 500 ML IVPB ONE (18:00)
--- NOTE | 2018-08-02 18:00 | P.CNPUL ---
History of Present Illness Consult date: 08/02/18 Reason for consult: pneumonia History of present illness: A morbidly obese 28-year-old male patient, essentially negative past medical history, came into the hospital because of progressive shortness of breath and acute hypoxic respiratory failure. This afternoon, the patient was getting worse in terms of his pulmonary status and hypoxemia. He was on high flow oxygen 10 L per minute nasal cannula. He was still desaturating. Was tachypneic and in significant respiratory distress. Based on that he got moved to the intensive care unit where he was placed on a BiPAP at a pressure of 12/5 cm of water with an FiO2 of 60%. His pulse ox currently is at 92%. Feeling slightly better. Very much BiPAP dependent. His minute ventilation at this point is somewhat between 18-20 L. He is able to tolerate a full face mask without any major difficulties. Note that the patient was having episodes of fever. His most recent temperature was 100.0. He was checked for influenza A and axle turner to be positive. He also has a component of rhabdomyolysis with elevated CPK levels. Echo of the heart was done and showed also impairment of LV function with an ejection fraction of 40-45%. No segmental wall motion abnormalities. Pulmonary artery pressures are not elevated. Since he came to the ICU, the patient received a dose of Lasix and following that he diureses around 1500 mL of urine output. His blood gases while on the BiPAP showed a pH of 7.34 with a pCO2 of 50 and pO2 of 76 with an FiO2 of 60%. The patient's blood culture showed positive gram-positive cocci and gram-negative bacilli and this is one set out of 2 and probably contaminant. Antibiotic coverage was modified and the patient is currently on a combination of cefepime and Zithromax and the patient was given a dose of vancomycin. The patient was also placed on Tamiflu on IV Solu-Medrol. Lactic acid level is at 2.4. Troponins are minimally elevated at 0.1 and 0.07. BNP level is around 5000. Review of Systems Constitutional: Reports chills, Reports fatigue, Reports fever, Reports lethargy , Reports night sweats, Reports weakness Eyes: denies blurred vision, denies bulging eye, denies decreased vision Ears: deny: decreased hearing, ear discharge, earache, tinnitus Ears, nose, mouth and throat: Denies headache, Denies sore throat Cardiovascular: Reports dyspnea on exertion, Reports edema, Reports shortness of breath Respiratory: Reports cough, Reports cough with sputum, Reports dyspnea, Reports snoring, Reports wheezing Gastrointestinal: Denies abdominal pain, Denies diarrhea, Denies nausea, Denies vomiting Genitourinary: Reports as per HPI Musculoskeletal: Reports as per HPI Musculoskeletal: absent: ankle pain, ankle stiffness, ankle swelling Integumentary: Denies pruritus, Denies rash Neurological: Reports as per HPI Psychiatric: Reports as per HPI Endocrine: Reports as per HPI, Reports fatigue Past Medical History Past Medical History: No Reported History Additional Past Medical History / Comment(s): Morbid obesity History of Any Multi-Drug Resistant Organisms: None Reported Past Surgical History: No Surgical Hx Reported Additional Past Surgical History / Comment(s): pt denies having had any sx Past Anesthesia/Blood Transfusion Reactions: No Reported Reaction Additional Past Anesthesia/Blood Transfusion Reaction / Comment(s): pt stated never had any sx, never recieved any blood Smoking Status: Never smoker - Past Family History Mother Family Medical History: Cancer, Diabetes Mellitus Additional Family Medical History / Comment(s): breast cancer Father Family Medical History: Congestive Heart Failure (CHF), Coronary Artery Disease (CAD), Diabetes Mellitus Additional Family Medical History / Comment(s): heart cath w/stents prior to quad cabg Medications and Allergies Home Medications Medication Instructions Recorded Confirmed Type No Known Home Medications 08/01/18 08/01/18 History Allergies Allergy/AdvReac Type Severity Reaction Status Date / Time No Known Allergies Allergy Verified 08/01/18 16:35 Physical Exam Vitals: Vital Signs Temp Pulse Pulse Resp BP BP Pulse Ox 08/02/18 17:00 89 43 H 163/100 93 L 08/02/18 16:54 90 08/02/18 16:45 81 40 H 94 L 08/02/18 16:37 88 08/02/18 16:30 89 43 H 167/100 92 L 08/02/18 16:15 93 22 154/125 94 L 08/02/18 16:10 41 H 181/118 96 08/02/18 16:05 100 F H 92 17 181/118 97 08/02/18 16:00 67 36 H 182/134 96 08/02/18 15:55 96 22 182/134 91 L 08/02/18 15:50 96 6 L 92 L 08/02/18 15:46 86 L 08/02/18 15:41 28 H 08/02/18 11:44 98.3 F 78 28 H 156/82 88 L 08/02/18 09:08 98.7 F 85 20 142/86 91 L 08/02/18 04:00 97.1 F L 68 22 152/87 98 08/02/18 00:00 97.8 F 71 22 164/74 92 L 08/01/18 20:01 73 18 149/84 96 08/01/18 19:46 98.8 F 79 18 156/90 96 08/01/18 18:30 148/93 95 08/01/18 18:00 161/91 94 L Intake and Output 08/02/18 08/02/18 08/02/18 06:59 14:59 22:59 Intake Total 1960 480 120 Output Total 1850 Balance 1959 480 -1730 Intake: IV 1000 120 ACETAMINOPHEN IV (For NPO 100 ) 1,000 mg In Empty Bag 1 bag @ 400 mls/hr IVPB ONCE ONE Rx#:[id number] Sodium Chloride 0.9% 1, 1000 000 ml @ 100 mls/hr IV . Q10H STA Rx#:[id number] Sodium Chloride 0.9% 1, 20 000 ml @ 75 mls/hr IV . [id number] TEQUILA Rx#:[id number] Oral 960 480 Output: Urine 1850 Other: Voiding Method Toilet Toilet Indwelling Catheter # Voids 2 Weight 216.5 kg General: Ill appearing, mild distress, obese, appears at stated age, the patient is currently on a BiPAP and is able to tolerate a full face BiPAP without any major difficulties. He is having some chills Derm: warm, diaphoretic Head: atraumatic, normocephalic, symmetric Eyes: EOMI, no lid lag, anicteric sclera Mouth: no lip lesion, mucus membranes moist Cardiovascular: S1S2 reg, no murmur, positive posterior tibial pulse bilateral, Lungs: Rhonchi bilateral bases and the patient has diffuse crackles heard throughout the lung haile. He is tachypneic and he is is using some degree of accessory muscles which improved while the patient being on a BiPAP machine. Abdominal: soft, nontender to palpation, no guarding, no appreciable organomegaly Ext: no gross muscle atrophy, no edema, no contractures Neuro: CN II-XI grossly intact, no focal neuro deficits Psych: Alert, oriented, appropriate affect , anxious Results - Laboratory Findings CBC and BMP: 08/02/18 03:56 08/02/18 03:56 ABG ABG pH 7.34 (7.35-7.45) L 08/02/18 13:28 ABG pCO2 50 mmHg (35-45) H 08/02/18 13:28 ABG pO2 76 mmHg (83-108) L 08/02/18 13:28 ABG O2 Saturation 95.3 % (94-97) 08/02/18 13:28 PT/INR, D-dimer PT 10.7 sec (9.0-12.0) 08/01/18 16:11 INR 1.1 (<1.2) 08/01/18 16:11 D-Dimer 2.11 mg/L FEU (<0.60) H 08/02/18 11:53 Abnormal lab findings: Abnormal Labs 08/01/18 08/01/18 08/01/18 16:11 16:11 19:44 ESR D-Dimer ABG pH ABG pCO2 ABG pO2 ABG HCO3 ABG Total CO2 Sodium 132 L BUN 25 H Glucose 104 H POC Glucose (mg/dL) Plasma Lactic Acid Micah AST 135 H Creatine Kinase Total Creatine Kinase 5198 H* CK-MB (CK-2) 6.6 H Troponin I 0.174 H* Albumin 3.4 L Influenza Type A RNA Detected H 08/01/18 08/02/18 08/02/18 22:32 03:56 03:56 ESR D-Dimer ABG pH ABG pCO2 ABG pO2 ABG HCO3 ABG Total CO2 Sodium 136 L BUN 25 H Glucose 169 H POC Glucose (mg/dL) Plasma Lactic Acid Micah AST 125 H Creatine Kinase 4683 H* Total Creatine Kinase 5067 H* 4769 H* CK-MB (CK-2) 7.5 H 9.7 H Troponin I 0.142 H* 0.070 H* Albumin 3.2 L Influenza Type A RNA 08/02/18 08/02/18 08/02/18 03:56 06:18 11:30 ESR 16 H D-Dimer ABG pH ABG pCO2 ABG pO2 ABG HCO3 ABG Total CO2 Sodium BUN Glucose POC Glucose (mg/dL) 178 H 129 H Plasma Lactic Acid Micah AST Creatine Kinase Total Creatine Kinase CK-MB (CK-2) Troponin I Albumin Influenza Type A RNA 08/02/18 08/02/18 08/02/18 11:53 11:53 13:28 ESR D-Dimer 2.11 H ABG pH 7.34 L ABG pCO2 50 H ABG pO2 76 L ABG HCO3 27 H ABG Total CO2 29 H Sodium BUN Glucose POC Glucose (mg/dL) Plasma Lactic Acid Micah AST Creatine Kinase 3175 H* Total Creatine Kinase CK-MB (CK-2) Troponin I Albumin Influenza Type A RNA 08/02/18 08/02/18 15:50 16:23 ESR D-Dimer ABG pH ABG pCO2 ABG pO2 ABG HCO3 ABG Total CO2 Sodium BUN Glucose POC Glucose (mg/dL) 142 H Plasma Lactic Acid Micah 2.4 H* AST Creatine Kinase Total Creatine Kinase CK-MB (CK-2) Troponin I Albumin Influenza Type A RNA - Diagnostic Findings Chest x-ray: image reviewed Assessment and Plan Plan: Impression 1 acute hypoxic respiratory failure with significant respiratory distress and failure, patient is currently BiPAP dependent. The patient developed diffuse breath and pulmonary infiltrate likely on the basis of an acute influenza pneumonia. Acute noncardiogenic pulmonary edema/ARDS this to be considered. Despite his mildly impaired LV function, I think overall presentation is consistent with acute influenza pneumonia with possibly early signs of ARDS 2 acute shortness of breath secondary to above 3 diffuse breath and pulmonary infiltrates, consider viral/influenza pneumonia 4 acute rhabdomyolysis 5 mild lactic acidosis 6 abnormal blood culture, with positive blood cultures for gram-positive and gram-negative and possibly a contaminant. 7 CHF with mild systolic dysfunction, possibly sepsis due to that ejection fraction of 40-45% 8 morbid obesity BMI of 63 Plan 2 new BiPAP for respiratory support. Follow-up ABGs on the current vent settings. Will need IV access the triple-lumen catheter and this was discussed with the patient. Continue Tamiflu 75 mg by mouth twice a day. Continue IV Solu-Medrol. Continue bronchodilators. Continue current antibiotic coverage pending results of the blood cultures which I think it's a contaminant. Patient is critically ill. Highly likelihood that the patient would and up on a mechanical ventilator. I will discuss this with him. We'll keep in ICU. Daily chest x-rays. Continue bronchodilators. IV Protonix. Heparin subcu for DVT prophylaxis. Legionella urine antigen. We'll continue to follow make further recommendations based on his progress. Time with Patient: Greater than 30
[2018-08-02] MEDS: AZITHROMYCIN 500 MG in SODIUM CHLORIDE 0.9% 250 ML IVPB SCH (18:50)
[2018-08-02] MEDS ORDERED: NALOXONE 0.4 MG/ML 1 ML VIAL IV PRN (19:04)
[2018-08-02 19:24] LABS: ABG Base Excess 2.8 mmol/L; ABG HCO3 28 mmol/L (21-25); ABG Oxygen Saturation 97.5 % (94-97); ABG PCO2 44 mmHg (35-45); ABG PH 7.41 (7.35-7.45); ABG PO2 95 mmHg (83-108); ABG TCO2 29 mmol/L (19-24)
[2018-08-02] MEDS: CEFEPIME 1 GM in SODIUM CHLORIDE 0.9% 50 ML IVPB SCH (20:40)
[2018-08-02] MEDS: METOPROLOL TARTRATE 25 MG TAB PO SCH (20:40)
[2018-08-02 21:59] LABS: Phosphorus 3.4 mg/dL (2.5-4.5)
[2018-08-03] MEDS: IPRATROPIUM-ALBUTEROL 3 ML NEB INHALATION PRN ×5 (03:20→23:19)
[2018-08-03] MEDS: methylPREDNISolone SOD SUCCI 125 MG/2 ML VIAL IV SCH ×4 (04:24→22:28)
[2018-08-03 04:31] LABS: Glucose,Whole Blood 170 mg/dL (75-99)
[2018-08-03 04:52] LABS: HCT 43.5 % (39.0-53.0); HGB 13.9 gm/dL (13.0-17.5); MCH 27.3 pg (25.0-35.0); MCHC 31.9 g/dL (31.0-37.0); MCV 85.5 fL (80.0-100.0); Mean Platelet Volume 7.3; Platelet Count 261 k/uL (150-450); RBC 5.09 m/uL (4.30-5.90); RDW 13.6 % (11.5-15.5); WBC 10.3 k/uL (3.8-10.6)
[2018-08-03] MEDS: SODIUM CHLORIDE 0.9% 1,000 ML IV SCH ×2 (05:12→19:50)
[2018-08-03 05:15] LABS: ALT 57 U/L (21-72); AST 83 U/L (17-59); Albumin 3.1 g/dL (3.5-5.0); Alkaline Phosphatase 65 U/L (38-126); Anion Gap 7 mmol/L; Blood Urea Nitrogen 26 mg/dL (9-20); Calcium 8.3 mg/dL (8.4-10.2); Carbon Dioxide 30 mmol/L (22-30); Chloride 104 mmol/L (98-107); Glucose 166 mg/dL (74-99); Magnesium 2.1 mg/dL (1.6-2.3); Phosphorus 3.8 mg/dL (2.5-4.5); Potassium 4.8 mmol/L (3.5-5.1); Sodium 141 mmol/L (137-145); Total Bilirubin 0.4 mg/dL (0.2-1.3); Total Protein 6.2 g/dL (6.3-8.2)
[2018-08-03 05:16] LABS: Creatine Kinase 1380 U/L (55-170)
[2018-08-03 06:45] LABS: Glucose,Whole Blood 161 mg/dL (75-99)
[2018-08-03] MEDS: INSULIN ASPART 100 UNIT/ML 1 ML 10 ML VIAL SQ SCH ×3 (06:50→18:31)
--- NOTE | 2018-08-03 07:12 | P.PN ---
Subjective Progress Note Date: 08/03/18 Principal diagnosis: Acute hypoxic respiratory failure This is a 28-year-old gentleman with past medical history significant for morbid obesity, he presented to the hospital with symptoms of shortness of breath with associated productive cough and chest tightness. He states that he went to a walk-in clinic to get evaluated and was given some medications for cough, however his symptoms continued to worsen and therefore he came to the hospital for further evaluation. Patient ruled in for influenza A, he was given a dose of Tamiflu and started on Rocephin and Zithromax. There is a concern patient may have a superimposed pneumonia and possible myocarditis, CK- MB and troponins are abnormal and for this reason a cardiology consultation was requested. Blood pressure on arrival here 140/90 with a heart rate in the low 100s, temperature 100.4, 94% on 5 L of oxygen. Blood pressure this morning 142/ 80, 91% on 4 L of oxygen. White blood cell count is normal, hemoglobin 14.4, platelet count 209. Sodium 136, potassium 4.5, BUN 25, creatinine 1.1. AST 125 , ALT normal. Total creatinine kinase 5198, 5067, 4769. MB 6.6, 7.5, 9.7. Troponin 0.17, 0.14, 0.07. Influenza A positive BNP 486. At the time of my examination this morning, patient denies any chest discomfort, he is quite short of breath, very diaphoretic, and continues to cough up significant amounts of yellow to maier sputum. Chest x-ray shows striking multi focal bilateral bronchopneumonia. EKG shows a normal sinus rhythm with T wave inversion noted in the lateral leads. On follow-up with the patient today, he was transferred overnight to the intensive care unit because he was in acute respiratory distress yesterday. He is looking definitely better today. He is feeling better. He continues to be in sinus rhythm with a normal heart rate and continues to be hemodynamically stable and not requiring any vasopressors. He is on diuretics as well as antibiotics. The echocardiogram revealed impaired LV function with EF of around 40-45% which is likely nonischemic. Objective - Vital Signs Vital signs: Vital Signs Temp 98.1 F 08/03/18 04:00 Pulse 55 L 08/03/18 07:00 Resp 30 H 08/03/18 07:00 BP 146/80 08/03/18 07:00 Pulse Ox 92 L 08/03/18 07:00 Intake & Output 08/02/18 08/03/18 08/03/18 18:59 06:59 18:59 Intake Total 620 790 20 Output Total 1910 1425 110 Balance -1290 -635 -90 Intake: IV 140 240 20 ACETAMINOPHEN IV (For NPO 100 ) 1,000 mg In Empty Bag 1 bag @ 400 mls/hr IVPB ONCE ONE Rx#:[id number] Sodium Chloride 0.9% 1, 40 240 20 000 ml @ 75 mls/hr IV . [id number] [facility] Rx#:[id number] Intake, IV Titration 550 Amount Cefepime 1 gm In Sodium 50 Chloride 0.9% 50 ml @ 100 mls/hr IVPB Q12HR [facility] Rx #:[id number] Vancomycin 2,500 mg In 500 Sodium Chloride 0.9% 500 ml 500 ml @ 167 mls/hr IVPB Q12H [facility] Rx#: [id number] Oral 480 Output: Urine 1910 1425 110 Other: Voiding Method Indwelling Catheter Indwelling Catheter # Voids 2 - Constitutional General appearance: Present: no acute distress - Respiratory Respiratory: bilateral: rhonchi - Cardiovascular Rhythm: regular Heart sounds: normal: S1, S2 - Labs CBC & Chem 7: 08/03/18 04:23 08/03/18 04:23 Labs: Abnormal Lab Results - Last 24 Hours (Table) 08/02/18 08/02/18 08/02/18 Range/Units 03:56 11:30 11:53 ESR 16 H (0-15) mm/hr D-Dimer (<0.60) mg/L FEU ABG pH (7.35-7.45) ABG pCO2 (35-45) mmHg ABG pO2 (83-108) mmHg ABG HCO3 (21-25) mmol/L ABG Total CO2 (19-24) mmol/L ABG O2 Saturation (94-97) % BUN (9-20) mg/dL Glucose (74-99) mg/dL POC Glucose (mg/dL) 129 H (75-99) mg/dL Plasma Lactic Acid Micah (0.7-2.0) mmol/L Calcium (8.4-10.2) mg/dL AST (17-59) U/L Creatine Kinase 3175 H* (55-170) U/L CK-MB (CK-2) (0.0-2.4) ng/mL Total Protein (6.3-8.2) g/dL Albumin (3.5-5.0) g/dL Urine Protein (Negative) Urine Blood (Negative) Urine Mucus (None) /hpf 08/02/18 08/02/18 08/02/18 Range/Units 11:53 13:28 15:50 ESR (0-15) mm/hr D-Dimer 2.11 H (<0.60) mg/L FEU ABG pH 7.34 L (7.35-7.45) ABG pCO2 50 H (35-45) mmHg ABG pO2 76 L (83-108) mmHg ABG HCO3 27 H (21-25) mmol/L ABG Total CO2 29 H (19-24) mmol/L ABG O2 Saturation (94-97) % BUN (9-20) mg/dL Glucose (74-99) mg/dL POC Glucose (mg/dL) 142 H (75-99) mg/dL Plasma Lactic Acid Micah (0.7-2.0) mmol/L Calcium (8.4-10.2) mg/dL AST (17-59) U/L Creatine Kinase (55-170) U/L CK-MB (CK-2) (0.0-2.4) ng/mL Total Protein (6.3-8.2) g/dL Albumin (3.5-5.0) g/dL Urine Protein (Negative) Urine Blood (Negative) Urine Mucus (None) /hpf 08/02/18 08/02/18 08/02/18 Range/Units 16:23 17:36 19:23 ESR (0-15) mm/hr D-Dimer (<0.60) mg/L FEU ABG pH (7.35-7.45) ABG pCO2 (35-45) mmHg ABG pO2 (83-108) mmHg ABG HCO3 28 H (21-25) mmol/L ABG Total CO2 29 H (19-24) mmol/L ABG O2 Saturation 97.5 H (94-97) % BUN (9-20) mg/dL Glucose (74-99) mg/dL POC Glucose (mg/dL) (75-99) mg/dL Plasma Lactic Acid Miach 2.4 H* (0.7-2.0) mmol/L Calcium (8.4-10.2) mg/dL AST (17-59) U/L Creatine Kinase (55-170) U/L CK-MB (CK-2) (0.0-2.4) ng/mL Total Protein (6.3-8.2) g/dL Albumin (3.5-5.0) g/dL Urine Protein 1+ H (Negative) Urine Blood Small H (Negative) Urine Mucus Rare H (None) /hpf 08/02/18 08/03/18 08/03/18 Range/Units 21:07 04:23 04:23 ESR (0-15) mm/hr D-Dimer (<0.60) mg/L FEU ABG pH (7.35-7.45) ABG pCO2 (35-45) mmHg ABG pO2 (83-108) mmHg ABG HCO3 (21-25) mmol/L ABG Total CO2 (19-24) mmol/L ABG O2 Saturation (94-97) % BUN 26 H (9-20) mg/dL Glucose 166 H (74-99) mg/dL POC Glucose (mg/dL) (75-99) mg/dL Plasma Lactic Acid Micah (0.7-2.0) mmol/L Calcium 8.3 L (8.4-10.2) mg/dL AST 83 H (17-59) U/L Creatine Kinase 2498 H* 1380 H* (55-170) U/L CK-MB (CK-2) 5.7 H (0.0-2.4) ng/mL Total Protein 6.2 L (6.3-8.2) g/dL Albumin 3.1 L (3.5-5.0) g/dL Urine Protein (Negative) Urine Blood (Negative) Urine Mucus (None) /hpf 08/03/18 08/03/18 Range/Units 04:29 06:44 ESR (0-15) mm/hr D-Dimer (<0.60) mg/L FEU ABG pH (7.35-7.45) ABG pCO2 (35-45) mmHg ABG pO2 (83-108) mmHg ABG HCO3 (21-25) mmol/L ABG Total CO2 (19-24) mmol/L ABG O2 Saturation (94-97) % BUN (9-20) mg/dL Glucose (74-99) mg/dL POC Glucose (mg/dL) 170 H 161 H (75-99) mg/dL Plasma Lactic Acid Micah (0.7-2.0) mmol/L Calcium (8.4-10.2) mg/dL AST (17-59) U/L Creatine Kinase (55-170) U/L CK-MB (CK-2) (0.0-2.4) ng/mL Total Protein (6.3-8.2) g/dL Albumin (3.5-5.0) g/dL Urine Protein (Negative) Urine Blood (Negative) Urine Mucus (None) /hpf Microbiology - Last 24 Hours (Table) 08/02/18 17:36 Urine Culture - Preliminary Urine,Catheterized 08/02/18 13:50 Sputum Culture - Preliminary Sputum 08/01/18 16:11 Blood Culture Gram Stain - Preliminary Blood 08/01/18 16:11 Blood Culture - Final Blood Assessment and Plan Assessment: Assessment #1 acute hypoxic respiratory failure likely related to a combination of pneumonia as well as congestive heart failure #2 congestive heart failure exacerbation secondary to systolic dysfunction #3 cardiomyopathy with EF between 40-45%, of unknown etiology, ischemic versus nonischemic #4 morbid obesity #5 multiple comorbid conditions Plan #1 continue IV diuretics. The patient overall is feeling better. #2 continue monitor the kidney function and electrolytes #3 consider adding beta lyle as well as KANDY inhibitor and Aldactone down the line, for the cardiomyopathy #4 consider medical treatment for the mildly abnormal cardiac enzymes which is secondary to the hypoxemia when the patient presented to the hospital #5 follow-up with the patient. Thank you for allowing us participate in his care and we will continue following up with the patient
--- NOTE | 2018-08-03 07:22 | XR ---
EXAMINATION TYPE: XR chest 1V portable DATE OF EXAM: 08/03/2018 COMPARISON: 08/02/2018 HISTORY: Shortness of breath and pneumonia TECHNIQUE: Single frontal view of the chest is obtained. FINDINGS: There is improved aeration of the lungs with persistent multifocal confluent opacities. Th ere is also obscuration of the costophrenic angles and global cardiomegaly. No sizable pneumothorax. Osseous structures are grossly intact. There are overall low lung volumes. IMPRESSION: Although there is improved aeration of the lungs multifocal confluent opacities remain b ilaterally. Consideration is for pulmonary edema, multifocal pneumonia or ARDS.
[2018-08-03] MEDS: CEFEPIME 1 GM in SODIUM CHLORIDE 0.9% 50 ML IVPB SCH ×2 (08:16→20:27)
[2018-08-03] MEDS: FUROSEMIDE 10 MG/ML 4 ML VIAL IV SCH ×2 (08:19→20:27)
[2018-08-03] MEDS: ASPIRIN 81 MG PO SCH (08:19)
[2018-08-03] MEDS: ENOXAPARIN 40 MG/0.4 ML SYRINGE SQ SCH (08:19)
[2018-08-03] MEDS: OSELTAMIVIR 75 MG CAP PO SCH ×2 (08:20→20:28)
[2018-08-03] MEDS: PANTOPRAZOLE 40 MG/10 ML VIAL IV SCH (08:20)
[2018-08-03] MEDS: VANCOMYCIN 2,500 MG in SODIUM CHLORIDE 0.9% 500 ML 500 ML IVPB SCH ×2 (09:13→20:27)
[2018-08-03] MEDS: METOPROLOL TARTRATE 25 MG TAB PO SCH ×2 (09:14→20:20)
[2018-08-03 09:24] LABS: ABG Base Excess 4.9 mmol/L; ABG HCO3 30 mmol/L (21-25); ABG PCO2 46 mmHg (35-45); ABG PH 7.41 (7.35-7.45); ABG PO2 75 mmHg (83-108); ABG TCO2 31 mmol/L (19-24)
[2018-08-03 12:16] LABS: Glucose,Whole Blood 152 mg/dL (75-99)
--- NOTE | 2018-08-03 14:44 | P.PN ---
Subjective Progress Note Date: 08/03/18 A morbidly obese 28-year-old male patient, essentially negative past medical history, came into the hospital because of progressive shortness of breath and acute hypoxic respiratory failure. This afternoon, the patient was getting worse in terms of his pulmonary status and hypoxemia. He was on high flow oxygen 10 L per minute nasal cannula. He was still desaturating. Was tachypneic and in significant respiratory distress. Based on that he got moved to the intensive care unit where he was placed on a BiPAP at a pressure of 12/5 cm of water with an FiO2 of 60%. His pulse ox currently is at 92%. Feeling slightly better. Very much BiPAP dependent. His minute ventilation at this point is somewhat between 18-20 L. He is able to tolerate a full face mask without any major difficulties. Note that the patient was having episodes of fever. His most recent temperature was 100.0. He was checked for influenza A and flange turner to be positive. He also has a component of rhabdomyolysis with elevated CPK levels. Echo of the heart was done and showed also impairment of LV function with an ejection fraction of 40-45%. No segmental wall motion abnormalities. Pulmonary artery pressures are not elevated. Since he came to the ICU, the patient received a dose of Lasix and following that he diureses around 1500 mL of urine output. His blood gases while on the BiPAP showed a pH of 7.34 with a pCO2 of 50 and pO2 of 76 with an FiO2 of 60%. The patient's blood culture showed positive gram-positive cocci and gram-negative bacilli and this is one set out of 2 and probably contaminant. Antibiotic coverage was modified and the patient is currently on a combination of cefepime and Zithromax and the patient was given a dose of vancomycin. The patient was also placed on Tamiflu on IV Solu-Medrol. Lactic acid level is at 2.4. Troponins are minimally elevated at 0.1 and 0.07. BNP level is around 5000. On 08/03/2018 I'm seeing this patient for a follow-up. The patient remains in intensive care unit. He is an acute hypoxic respiratory failure secondary to bilateral pneumonia, influenza pneumonia. The patient came in to the ICU yesterday because of significant respiratory distress and severe hypoxemia. He was placed on a BiPAP and he spent the whole night on a BiPAP and he is able to tolerate the BiPAP without any major difficulties. He remains on a pressure of 12/5 with an FiO2 of 60%. He is still tachypneic and breathing at a faster rate however much more comfortable compared to yesterday. No use of accessory muscles of breathing on today's evaluation. His blood gases from today showed a pH of 7.41 with a pCO2 of 46 and pO2 of 75 and this was done on an FiO2 of 60% . Based on this marginal improvement in respiratory status, I decided not to intubate the patient was still monitoring him clinically. He is communicating and there is no altered mentation. Denies having any chest pain. On examination he is less wheezy and rhonchorous compared to yesterday. No sputum production. No chest pain. No hypotension. No hemodynamic instability. No tachycardia. The culture showed a coagulase-negative staph which is again a contaminant. The patient was given a combination of cefepime and Zithromax and vancomycin as broad-spectrum antibiotic coverage. The patient was also placed on Tamiflu. The patient is currently on IV Solu-Medrol 60 mg every 6 hours in addition to DuoNeb nebulized treatments around the clock. No nausea. No emesis. No abdominal pain. No abdominal distention. The patient remains nothing by mouth for now. He is not spiking any significant temperature since yesterday. White cell count is at 10.3. Renal function is within normal limits. CPK level is declining. Objective - Vital Signs Vital signs: Vital Signs Temp 98.1 F 08/03/18 12:00 Pulse 69 08/03/18 14:00 Resp 33 H 08/03/18 14:00 BP 150/88 08/03/18 14:00 Pulse Ox 92 L 08/03/18 14:00 Intake & Output 08/02/18 08/03/18 08/03/18 18:59 06:59 18:59 Intake Total 620 790 710 Output Total 0455 2730 1160 Balance -1290 -635 -450 Intake: IV 140 240 710 ACETAMINOPHEN IV (For NPO 100 ) 1,000 mg In Empty Bag 1 bag @ 400 mls/hr IVPB ONCE ONE Rx#:[id number] Cefepime 1 gm In Sodium 50 Chloride 0.9% 50 ml @ 100 mls/hr IVPB Q12HR [facility] Rx #:[id number] Sodium Chloride 0.9% 1, 40 240 160 000 ml @ 75 mls/hr IV . [id number] [facility] Rx#:[id number] Vancomycin 2,500 mg In 500 Sodium Chloride 0.9% 500 ml 500 ml @ 167 mls/hr IVPB ONCE ONE Rx#: [id number] Intake, IV Titration 550 Amount Cefepime 1 gm In Sodium 50 Chloride 0.9% 50 ml @ 100 mls/hr IVPB Q12HR [facility] Rx #:[id number] Vancomycin 2,500 mg In 500 Sodium Chloride 0.9% 500 ml 500 ml @ 167 mls/hr IVPB Q12H [facility] Rx#: [id number] Oral 480 Output: Urine 1910 1425 1160 Other: Voiding Method Indwelling Catheter Indwelling Catheter # Voids 2 - Exam General: Ill appearing, still on BiPAP, still tachypneic although less short of breath compared to yesterday, and the patient is not struggling his extremities. The respiratory rate is somewhere between 28 and 33. Pulse ox is 92% on above-mentioned vent setting which includes a BiPAP pressure of 12/6 with an FiO2 of 60%. Derm: warm, diaphoretic Head: atraumatic, normocephalic, symmetric Eyes: EOMI, no lid lag, anicteric sclera Mouth: no lip lesion, mucus membranes moist Cardiovascular: S1S2 reg, no murmur, positive posterior tibial pulse bilateral, Lungs: Rhonchi bilateral bases and the patient has diffuse crackles heard throughout the lung haile. The patient is moving adequate breath sounds bilaterally and the patient has having less wheezes and rhonchi compared to yesterday. There is improvement in the lung examination compared to yesterday' s findings. Abdominal: soft, nontender to palpation, no guarding, no appreciable organomegaly Ext: no gross muscle atrophy, no edema, no contractures Neuro: CN II-XI grossly intact, no focal neuro deficits Psych: Alert, oriented, appropriate affect , anxious - Labs CBC & Chem 7: 08/03/18 04:23 08/03/18 04:23 Labs: Abnormal Lab Results - Last 24 Hours (Table) 08/02/18 08/02/18 08/02/18 Range/Units 13:28 15:50 16:23 ABG pH 7.34 L (7.35-7.45) ABG pCO2 50 H (35-45) mmHg ABG pO2 76 L (83-108) mmHg ABG HCO3 27 H (21-25) mmol/L ABG Total CO2 29 H (19-24) mmol/L ABG O2 Saturation (94-97) % BUN (9-20) mg/dL Glucose (74-99) mg/dL POC Glucose (mg/dL) 142 H (75-99) mg/dL Plasma Lactic Acid Micah 2.4 H* (0.7-2.0) mmol/L Calcium (8.4-10.2) mg/dL AST (17-59) U/L Creatine Kinase (55-170) U/L CK-MB (CK-2) (0.0-2.4) ng/mL Total Protein (6.3-8.2) g/dL Albumin (3.5-5.0) g/dL Urine Protein (Negative) Urine Blood (Negative) Urine Mucus (None) /hpf 08/02/18 08/02/18 08/02/18 Range/Units 17:36 19:23 21:07 ABG pH (7.35-7.45) ABG pCO2 (35-45) mmHg ABG pO2 (83-108) mmHg ABG HCO3 28 H (21-25) mmol/L ABG Total CO2 29 H (19-24) mmol/L ABG O2 Saturation 97.5 H (94-97) % BUN (9-20) mg/dL Glucose (74-99) mg/dL POC Glucose (mg/dL) (75-99) mg/dL Plasma Lactic Acid Micah (0.7-2.0) mmol/L Calcium (8.4-10.2) mg/dL AST (17-59) U/L Creatine Kinase 2498 H* (55-170) U/L CK-MB (CK-2) (0.0-2.4) ng/mL Total Protein (6.3-8.2) g/dL Albumin (3.5-5.0) g/dL Urine Protein 1+ H (Negative) Urine Blood Small H (Negative) Urine Mucus Rare H (None) /hpf 08/03/18 08/03/18 08/03/18 Range/Units 04:23 04:23 04:29 ABG pH (7.35-7.45) ABG pCO2 (35-45) mmHg ABG pO2 (83-108) mmHg ABG HCO3 (21-25) mmol/L ABG Total CO2 (19-24) mmol/L ABG O2 Saturation (94-97) % BUN 26 H (9-20) mg/dL Glucose 166 H (74-99) mg/dL POC Glucose (mg/dL) 170 H (75-99) mg/dL Plasma Lactic Acid Micah (0.7-2.0) mmol/L Calcium 8.3 L (8.4-10.2) mg/dL AST 83 H (17-59) U/L Creatine Kinase 1380 H* (55-170) U/L CK-MB (CK-2) 5.7 H (0.0-2.4) ng/mL Total Protein 6.2 L (6.3-8.2) g/dL Albumin 3.1 L (3.5-5.0) g/dL Urine Protein (Negative) Urine Blood (Negative) Urine Mucus (None) /hpf 08/03/18 08/03/18 08/03/18 Range/Units 06:44 09:22 12:14 ABG pH (7.35-7.45) ABG pCO2 46 H (35-45) mmHg ABG pO2 75 L (83-108) mmHg ABG HCO3 30 H (21-25) mmol/L ABG Total CO2 31 H (19-24) mmol/L ABG O2 Saturation (94-97) % BUN (9-20) mg/dL Glucose (74-99) mg/dL POC Glucose (mg/dL) 161 H 152 H (75-99) mg/dL Plasma Lactic Acid Micah (0.7-2.0) mmol/L Calcium (8.4-10.2) mg/dL AST (17-59) U/L Creatine Kinase (55-170) U/L CK-MB (CK-2) (0.0-2.4) ng/mL Total Protein (6.3-8.2) g/dL Albumin (3.5-5.0) g/dL Urine Protein (Negative) Urine Blood (Negative) Urine Mucus (None) /hpf Microbiology - Last 24 Hours (Table) 08/01/18 16:11 Blood Culture - Final Blood 08/01/18 16:11 Blood Culture Gram Stain - Preliminary Blood Blood Culture - Preliminary Coagulase Negative Staph 08/02/18 13:50 Gram Stain - Preliminary Sputum Sputum Culture - Preliminary 08/02/18 17:36 Urine Culture - Preliminary Urine,Catheterized Assessment and Plan Plan: Impression 1 acute hypoxic respiratory failure with significant respiratory distress and failure, patient is currently BiPAP dependent. The patient developed diffuse breath and pulmonary infiltrate likely on the basis of an acute influenza pneumonia. Acute noncardiogenic pulmonary edema/ARDS this to be considered. Despite his mildly impaired LV function, I think overall presentation is consistent with acute influenza pneumonia with possibly early signs of ARDS. The patient remains on BiPAP at a pressure of 12/6 cm of water. FiO2 is at 60% . Less short of breath compared to yesterday. Chest x-ray findings are still showing diffuse but the pulmonary infiltration, somewhat unchanged compared to yesterday. Clinically however some limited improvement as visualized. 2 acute shortness of breath secondary to above 3 diffuse breath and pulmonary infiltrates, consider viral/influenza pneumonia 4 acute rhabdomyolysis, improving CPK level 5 mild lactic acidosis, recovered 6 abnormal blood culture, with positive blood cultures for gram-positive and gram-negative and possibly a contaminant. The patient has coagulase negative staph in the blood. 7 CHF with mild systolic dysfunction, possibly sepsis due to that ejection fraction of 40-45% 8 morbid obesity BMI of 63 Plan Continue BiPAP. Insert a PICC line for IV access as the patient is morbidly obese and he is a very hard stick for triple lumen catheter insertion. Continue current antibiotic coverage. Monitor blood gas. Monitor pulmonary status. Keep the patient Doppler ventilation. He remains critically ill. High likelihood that he may still failed and required intubation mechanical ventilation and I will take this despite the noted improvement since yesterday. Family is at the bedside. The patient is awake and alert. Hemodynamically stable. Continue bronchodilators. Continue steroids. Continue Tamiflu. We' ll continue to follow. Condition is critical, evaluation was done more than 35 minutes. Time with Patient: Greater than 30
[2018-08-03 15:22] LABS: Hemoglobin A1C 5.7 % (4.0-6.0)
[2018-08-03] MEDS ORDERED: LIDOCAINE 1% INJ 10MG/ML (20 ML MDV) SQ ONE (16:44)
--- NOTE | 2018-08-03 17:28 | XR ---
EXAMINATION TYPE: XR chest 1V portable DATE OF EXAM: 08/03/2018 COMPARISON: Today HISTORY: Check line placement TECHNIQUE: Single frontal view of the chest is obtained. FINDINGS: There is pulmonary airspace edema. Trachea is midline. Heart size is probably normal. Ther e is no pneumothorax. There is left-sided central venous catheter and the tip could be in the left hines bclavian vein at the axilla region. No pneumothorax. IMPRESSION: Severe pulmonary alveolar edema that is the same or worse than exam this morning at 6:30 AM.
--- NOTE | 2018-08-03 17:30 | XR ---
EXAMINATION TYPE: XR chest 1V portable DATE OF EXAM: 08/03/2018 COMPARISON: Today HISTORY: Check line placement TECHNIQUE: Single frontal view of the chest is obtained. FINDINGS: There is severe pulmonary alveolar edema. There is left-sided central venous catheter and the tip is probably in the axillary vein or the subclavian vein. There is no pneumothorax. IMPRESSION: Severe pulmonary edema unchanged. Catheter tip unchanged.
--- NOTE | 2018-08-03 17:31 | XR ---
EXAMINATION TYPE: XR chest 1V portable DATE OF EXAM: 08/03/2018 COMPARISON: NONE HISTORY: Check line placement TECHNIQUE: Single frontal view of the chest is obtained. FINDINGS: There is severe pulmonary alveolar edema. There is left side venous catheter and the tip i s overlying the lateral left second rib probably in the subclavian vein. Position is unchanged. IMPRESSION: Catheter tip unchanged. No pneumothorax.
[2018-08-03 18:12] LABS: Glucose,Whole Blood 146 mg/dL (75-99)
[2018-08-03] MEDS: AZITHROMYCIN 500 MG in SODIUM CHLORIDE 0.9% 250 ML IVPB SCH (18:31)
--- NOTE | 2018-08-03 18:45 | IR ---
EXAMINATION TYPE: IR cvc insert >=5 years DATE OF EXAM: 08/03/2018 COMPARISON: NONE HISTORY: Influenza, needs long-term intravenous access for therapy FINDINGS: Maximal barrier technique was utilized. The skin overlying the left basilic vein was local ized with ultrasound and noted to be compressible and patent by ultrasound. An ultrasound image was obtained and submitted on patient's chart. Sterile technique utilized with the ultrasound machine. Th e skin overlying was prepped and draped and Lidocaine used for local anesthesia. A skin ijeoma was mad e with a scalpel. Access was gained to the vein under direct ultrasound guidance with a 21-gauge nee dle and a 0.018 inch wire was advanced. Access site was dilated with a peel-away sheath and the cath eter tailored to length. Catheter advanced centrally and a post procedure chest x-ray verified place ment, tip of the catheter in the region of subclavian, axillary vein. Attempts to manipulate the cath eter more centrally were unsuccessful. Catheter was fixed to the skin with suture and a sterile dres sing placed. Hemostasis achieved and the catheter was aspirated and flushed with sterile saline. Th e patient remained in stable condition. IMPRESSION: STATUS POST ULTRASOUND GUIDED PICC LINE PLACEMENT, READY FOR USE. THIS PROCEDURE WAS PER FORMED BY THE UNDERSIGNED.
--- NOTE | 2018-08-03 21:27 | P.PN ---
Subjective Progress Note Date: 08/03/18 Principal diagnosis: shortness of breath Patient is a 28-year-old male with a past medical history of morbid obesity, family history of coronary artery disease and congestive heart failure who presented to the ER with complaints of shortness of breath and chest tightness. In the ER he underwent extensive testing. He was found to have influenza A, elevated troponin, elevated creatinine kinase, and EKG showing poor R-wave progression and T-wave inversion. He was in his given a dose of Tamiflu, and started on Rocephin and Zithromax. There was concern for influenza A with superimposed pneumonia and possible myocarditis. He was subsequently admitted to the cardiac unit and cardiology was consulted. Serial troponins remained elevated. His CPK downtrend and slightly after IV fluids. Echocardiogram was completed which showed an ejection fraction of 40-45%. Patient became acutely more dyspneic with increasing oxygen requirements and was subsequently admitted to the ICU. Pulmonary was consulted. Patient was placed on BiPAP due to hypercapnic hypoxic respiratory failure. He was started on Lasix and did have good urine output. He has slightly elevated lactic acid however he did not receive a bolus secondary to his respiratory difficulties. Initial blood culture came back with gram-positive and gram negatives, likely contaminant however in light of his worsening respiratory status his antibiotics were broadened to vancomycin, cefepime, and Zithromax. Patient seen and examined at bedside. Complains of feeling tired. Did not sleep yesterday. Thinks that he is breathing easier. No nausea or vomiting. Still not feeling well. Very fatigued. Objective - Vital Signs Vital signs: Vital Signs Temp 98.5 F 08/03/18 20:00 Pulse 64 08/03/18 20:29 Resp 32 H 08/03/18 20:00 BP 143/78 08/03/18 20:00 Pulse Ox 93 L 08/03/18 20:00 Intake & Output 08/03/18 08/03/18 08/04/18 06:59 18:59 06:59 Intake Total 790 790 840 Output Total 1425 1460 185 Balance -851 -961 345 Intake: IV 240 790 290 Azithromycin 500 mg In 250 Sodium Chloride 0.9% 250 ml @ 250 mls/hr IVPB DAILY@1800 [facility] Rx#: [id number] Cefepime 1 gm In Sodium 50 Chloride 0.9% 50 ml @ 100 mls/hr IVPB Q12HR [facility] Rx #:[id number] Sodium Chloride 0.9% 1, 240 240 40 000 ml @ 75 mls/hr IV . [id number] [facility] Rx#:[id number] Vancomycin 2,500 mg In 500 Sodium Chloride 0.9% 500 ml 500 ml @ 167 mls/hr IVPB ONCE ONE Rx#: [id number] Intake, IV Titration 550 550 Amount Cefepime 1 gm In Sodium 50 50 Chloride 0.9% 50 ml @ 100 mls/hr IVPB Q12HR [facility] Rx #:[id number] Vancomycin 2,500 mg In 500 500 Sodium Chloride 0.9% 500 ml 500 ml @ 167 mls/hr IVPB Q12H [facility] Rx#: [id number] Output: Urine 1425 1460 185 Other: Voiding Method Indwelling Catheter Indwelling Catheter - Exam General: Ill appearing, moderate distress, obese, appears at stated age Derm: warm, diaphoretic Head: atraumatic, normocephalic, symmetric Eyes: EOMI, no lid lag, anicteric sclera Mouth: no lip lesion, mucus membranes moist Cardiovascular: S1S2 reg, no murmur, positive posterior tibial pulse bilateral, Lungs: Rhonchi bilateral bases with 3 word conversational dyspnea, no accessory muscle use, on BiPAP Abdominal: soft, nontender to palpation, no guarding, no appreciable organomegaly Ext: no gross muscle atrophy, no edema, no contractures Neuro: CN II-XI grossly intact, no focal neuro deficits Psych: Alert, oriented, appropriate affect - Labs CBC & Chem 7: 08/03/18 04:23 08/03/18 04:23 Labs: Abnormal Lab Results - Last 24 Hours (Table) 08/02/18 08/03/18 08/03/18 Range/Units 21:07 04:23 04:23 ABG pCO2 (35-45) mmHg ABG pO2 (83-108) mmHg ABG HCO3 (21-25) mmol/L ABG Total CO2 (19-24) mmol/L BUN 26 H (9-20) mg/dL Glucose 166 H (74-99) mg/dL POC Glucose (mg/dL) (75-99) mg/dL Calcium 8.3 L (8.4-10.2) mg/dL AST 83 H (17-59) U/L Creatine Kinase 2498 H* 1380 H* (55-170) U/L CK-MB (CK-2) 5.7 H (0.0-2.4) ng/mL Total Protein 6.2 L (6.3-8.2) g/dL Albumin 3.1 L (3.5-5.0) g/dL 08/03/18 08/03/18 08/03/18 Range/Units 04:29 06:44 09:22 ABG pCO2 46 H (35-45) mmHg ABG pO2 75 L (83-108) mmHg ABG HCO3 30 H (21-25) mmol/L ABG Total CO2 31 H (19-24) mmol/L BUN (9-20) mg/dL Glucose (74-99) mg/dL POC Glucose (mg/dL) 170 H 161 H (75-99) mg/dL Calcium (8.4-10.2) mg/dL AST (17-59) U/L Creatine Kinase (55-170) U/L CK-MB (CK-2) (0.0-2.4) ng/mL Total Protein (6.3-8.2) g/dL Albumin (3.5-5.0) g/dL 08/03/18 08/03/18 Range/Units 12:14 18:10 ABG pCO2 (35-45) mmHg ABG pO2 (83-108) mmHg ABG HCO3 (21-25) mmol/L ABG Total CO2 (19-24) mmol/L BUN (9-20) mg/dL Glucose (74-99) mg/dL POC Glucose (mg/dL) 152 H 146 H (75-99) mg/dL Calcium (8.4-10.2) mg/dL AST (17-59) U/L Creatine Kinase (55-170) U/L CK-MB (CK-2) (0.0-2.4) ng/mL Total Protein (6.3-8.2) g/dL Albumin (3.5-5.0) g/dL Microbiology - Last 24 Hours (Table) 08/02/18 16:23 Blood Culture - Preliminary Blood No Growth after 24 hours 08/02/18 16:34 Blood Culture - Preliminary Blood No Growth after 24 hours 08/01/18 16:11 Blood Culture - Final Blood 08/01/18 16:11 Blood Culture Gram Stain - Preliminary Blood Blood Culture - Preliminary Coagulase Negative Staph 08/02/18 13:50 Gram Stain - Preliminary Sputum Sputum Culture - Preliminary 08/02/18 17:36 Urine Culture - Preliminary Urine,Catheterized Assessment and Plan Assessment: Pneumonia, probable post-influenza along with influenza A with sepsis as evidenced by tachycardia and tachypnea -Continue with cefepime, Vanco, and Zithromax, and Tamiflu. Would use Tamiflu despite limited evidence of severity of illness despite being greater than the treatment window as per current CDC guidelines -Follow chest x-ray until clear -Pulmonary hygiene -Sputum culture -DuoNeb -Pulmonary recommendations Acute hypoxic/hypercapnic respiratory failure -Bronchodilators, steroids, and antibiotics as listed above -On BiPAP therapy wean as able -Pulmonary recommendations -Concern for possible developing ARDS New-onset systolic cardiomyopathy with ejection fraction 40-45% -Patient not tolerate beta blockers secondary to hypotension and this will be held -Not candidate for KANDY inhibitor secondary to hypotension and acute kidney injury -Cardiology recommendations appreciated and plan is for ischemic evaluation after stabilization of acute illness Gram-positive and gram-negative bacteria and blood culture -Suspect contaminant -Placed on vancomycin and cefepime -Repeat cultures negative 24 hours Elevated troponin, possible ischemic etiology versus nonischemic etiology could be secondary to hypoxemia, viral infection, or sepsis -Cardiology recommendations appreciated. Ischemic evaluation planned, lying Elevated lactic acid -Contraindication for bolus IV fluids secondary to severe hypoxemia and respiratory distress Positive d-dimer -Patient has multiple indications for profound hypoxemia including influenza, multilobar infiltrates, and systolic congestive heart failure with EF 40-45%. There is no indication of acute PE and d-dimer is likely elevated secondary to the aforementioned etiologies. I do not recommend CT PE protocol at this time. Mild rhabdomyolysis -IV fluids decreased and CPKs improving -Repeat CPK in a.m. Hyponatremia secondary to dehydration, resolved Morbid obesity with BMI 63 -Structured outpatient weight loss DVT prophylaxis: Lovenox Discussed with: Patient, nursing Anticipated discharge: 4-[address]: Home A total of 35 minutes was spent on the care of this complex patient more than 50 % of the time was spent in counseling and care coordination.
[2018-08-04 00:03] LABS: Glucose,Whole Blood 155 mg/dL (75-99)
[2018-08-04] MEDS: INSULIN ASPART 100 UNIT/ML 1 ML 10 ML VIAL SQ SCH ×4 (00:25→18:03)
[2018-08-04] MEDS: IPRATROPIUM-ALBUTEROL 3 ML NEB INHALATION PRN ×3 (03:07→19:53)
[2018-08-04] MEDS: methylPREDNISolone SOD SUCCI 125 MG/2 ML VIAL IV SCH ×4 (04:26→22:04)
[2018-08-04] MEDS: SODIUM CHLORIDE 0.9% 1,000 ML IV SCH (04:30)
[2018-08-04 05:51] LABS: Basophils # (A) 0.1 k/uL (0-0.2); Basophils % (A) 1 %; Eosinophils % (A) 0 %; HCT 40.9 % (39.0-53.0); HGB 13.2 gm/dL (13.0-17.5); Lymphocytes # (A) 0.9 k/uL (1.0-4.8); Lymphocytes % (A) 9 %; MCH 27.9 pg (25.0-35.0); MCHC 32.2 g/dL (31.0-37.0); MCV 86.5 fL (80.0-100.0); Mean Platelet Volume 7.6; Monocytes # (A) 0.6 k/uL (0-1.0); Monocytes % (A) 6 %; Neutrophils # (A) 7.5 k/uL (1.3-7.7); Neutrophils % (A) 79 %; Platelet Count 218 k/uL (150-450); RBC 4.73 m/uL (4.30-5.90); RDW 13.9 % (11.5-15.5); WBC 9.5 k/uL (3.8-10.6)
[2018-08-04 06:06] LABS: Anion Gap 7 mmol/L; Blood Urea Nitrogen 35 mg/dL (9-20); Calcium 8.2 mg/dL (8.4-10.2); Carbon Dioxide 30 mmol/L (22-30); Chloride 106 mmol/L (98-107); Glucose 166 mg/dL (74-99); Magnesium 2.8 mg/dL (1.6-2.3); Phosphorus 3.6 mg/dL (2.5-4.5); Potassium 4.7 mmol/L (3.5-5.1); Sodium 143 mmol/L (137-145)
[2018-08-04 06:41] LABS: Glucose,Whole Blood 150 mg/dL (75-99)
--- NOTE | 2018-08-04 07:53 | P.PN ---
Subjective Progress Note Date: 08/04/18 Principal diagnosis: Acute hypoxic respiratory failure This is a 28-year-old gentleman with past medical history significant for morbid obesity, he presented to the hospital with symptoms of shortness of breath with associated productive cough and chest tightness. He states that he went to a walk-in clinic to get evaluated and was given some medications for cough, however his symptoms continued to worsen and therefore he came to the hospital for further evaluation. Patient ruled in for influenza A, he was given a dose of Tamiflu and started on Rocephin and Zithromax. There is a concern patient may have a superimposed pneumonia and possible myocarditis, CK- MB and troponins are abnormal and for this reason a cardiology consultation was requested. Blood pressure on arrival here 140/90 with a heart rate in the low 100s, temperature 100.4, 94% on 5 L of oxygen. Blood pressure this morning 142/ 80, 91% on 4 L of oxygen. White blood cell count is normal, hemoglobin 14.4, platelet count 209. Sodium 136, potassium 4.5, BUN 25, creatinine 1.1. AST 125 , ALT normal. Total creatinine kinase 5198, 5067, 4769. MB 6.6, 7.5, 9.7. Troponin 0.17, 0.14, 0.07. Influenza A positive BNP 486. At the time of my examination this morning, patient denies any chest discomfort, he is quite short of breath, very diaphoretic, and continues to cough up significant amounts of yellow to maier sputum. Chest x-ray shows striking multi focal bilateral bronchopneumonia. EKG shows a normal sinus rhythm with T wave inversion noted in the lateral leads. On follow-up with the patient today, August [id number], clinically he is looking slightly better and he is not as in respiratory distress as before. He is not using accessory muscles any more. He is feeling better into of shortness of breath. He continues to be on antibiotic for the pneumonia and he continues to be on Lasix IV. The chest x-ray from yesterday revealed pulmonary edema. The echocardiogram revealed impaired LV function with EF between 40-45% . Hemodynamically the patient continues to be stable. Objective - Vital Signs Vital signs: Vital Signs Temp 98.2 F 08/04/18 04:00 Pulse 60 08/04/18 07:00 Resp 13 08/04/18 07:00 BP 142/78 08/04/18 07:00 Pulse Ox 91 L 08/04/18 07:00 Intake & Output 08/03/18 08/04/18 08/04/18 18:59 06:59 18:59 Intake Total 790 1040 20 Output Total 1460 1340 70 Balance -670 -300 -50 Intake: IV 790 430 Azithromycin 500 mg In 250 Sodium Chloride 0.9% 250 ml @ 250 mls/hr IVPB DAILY@1800 [facility] Rx#: [id number] Cefepime 1 gm In Sodium 50 Chloride 0.9% 50 ml @ 100 mls/hr IVPB Q12HR [facility] Rx #:[id number] Sodium Chloride 0.9% 1, 240 180 000 ml @ 75 mls/hr IV . [id number] [facility] Rx#:[id number] Vancomycin 2,500 mg In 500 Sodium Chloride 0.9% 500 ml 500 ml @ 167 mls/hr IVPB ONCE ONE Rx#: [id number] Intake, IV Titration 610 20 Amount Cefepime 1 gm In Sodium 50 Chloride 0.9% 50 ml @ 100 mls/hr IVPB Q12HR [facility] Rx #:[id number] Sodium Chloride 0.9% 1, 60 20 000 ml @ 20 mls/hr IV . Q24H [facility] Rx#:[id number] Vancomycin 2,500 mg In 500 Sodium Chloride 0.9% 500 ml 500 ml @ 167 mls/hr IVPB Q12H [facility] Rx#: [id number] Output: Urine 1460 1340 70 Other: Voiding Method Indwelling Catheter Indwelling Catheter - Constitutional General appearance: Present: no acute distress - Respiratory Respiratory: bilateral: diminished - Cardiovascular Rhythm: regular Heart sounds: normal: S1, S2 - Labs CBC & Chem 7: 08/04/18 05:00 08/04/18 05:00 Labs: Abnormal Lab Results - Last 24 Hours (Table) 08/03/18 08/03/18 08/03/18 Range/Units 09:22 12:14 18:10 Lymphocytes # (1.0-4.8) k/uL ABG pCO2 46 H (35-45) mmHg ABG pO2 75 L (83-108) mmHg ABG HCO3 30 H (21-25) mmol/L ABG Total CO2 31 H (19-24) mmol/L BUN (9-20) mg/dL Glucose (74-99) mg/dL POC Glucose (mg/dL) 152 H 146 H (75-99) mg/dL Calcium (8.4-10.2) mg/dL Magnesium (1.6-2.3) mg/dL 08/04/18 08/04/18 08/04/18 Range/Units 00:01 05:00 05:00 Lymphocytes # 0.9 L (1.0-4.8) k/uL ABG pCO2 (35-45) mmHg ABG pO2 (83-108) mmHg ABG HCO3 (21-25) mmol/L ABG Total CO2 (19-24) mmol/L BUN 35 H (9-20) mg/dL Glucose 166 H (74-99) mg/dL POC Glucose (mg/dL) 155 H (75-99) mg/dL Calcium 8.2 L (8.4-10.2) mg/dL Magnesium 2.8 H (1.6-2.3) mg/dL 08/04/18 Range/Units 06:40 Lymphocytes # (1.0-4.8) k/uL ABG pCO2 (35-45) mmHg ABG pO2 (83-108) mmHg ABG HCO3 (21-25) mmol/L ABG Total CO2 (19-24) mmol/L BUN (9-20) mg/dL Glucose (74-99) mg/dL POC Glucose (mg/dL) 150 H (75-99) mg/dL Calcium (8.4-10.2) mg/dL Magnesium (1.6-2.3) mg/dL Microbiology - Last 24 Hours (Table) 08/02/18 17:36 Urine Culture - Final Urine,Catheterized 08/02/18 16:23 Blood Culture - Preliminary Blood No Growth after 24 hours 08/02/18 16:34 Blood Culture - Preliminary Blood No Growth after 24 hours 08/01/18 16:11 Blood Culture - Final Blood 08/01/18 16:11 Blood Culture Gram Stain - Preliminary Blood Blood Culture - Preliminary Coagulase Negative Staph 08/02/18 13:50 Gram Stain - Preliminary Sputum Sputum Culture - Preliminary Assessment and Plan Assessment: Assessment #1 acute hypoxic respiratory failure likely related to a combination of pneumonia as well as congestive heart failure #2 congestive heart failure exacerbation secondary to systolic dysfunction #3 cardiomyopathy with EF between 40-45%, of unknown etiology, ischemic versus nonischemic #4 morbid obesity #5 multiple comorbid conditions Plan #1 continue IV diuretics. The patient overall is feeling better. #2 continue monitor the kidney function and electrolytes #3 consider adding beta lyle as well as KANDY inhibitor and Aldactone down the line, for the cardiomyopathy #4 consider medical treatment for the mildly abnormal cardiac enzymes which is secondary to the hypoxemia when the patient presented to the hospital #5 follow-up with the patient. Thank you for allowing us participate in his care and we will continue following up with the patient
--- NOTE | 2018-08-04 08:10 | XR ---
EXAMINATION TYPE: XR chest 1V portable DATE OF EXAM: 08/04/2018 COMPARISON: 08/03/2018 HISTORY: Chest pain TECHNIQUE: Single frontal view of the chest is obtained. FINDINGS: Patchy airspace infiltrates persist throughout both lung haile although there is interval improvemen t suggested. Lung volumes are diminished. Cardiomegaly persists. Hilar and mediastinal structures are stable. Bony thorax is intact. IMPRESSION: 1. Patchy airspace infiltrates persist throughout both lung haile although there is interval improv ement suggested.
[2018-08-04] MEDS: VANCOMYCIN 2,500 MG in SODIUM CHLORIDE 0.9% 500 ML 500 ML IVPB SCH ×2 (09:02→20:55)
[2018-08-04 09:04] LABS: ABG Base Excess 6.1 mmol/L; ABG HCO3 30 mmol/L (21-25); ABG Oxygen Saturation 96.2 % (94-97); ABG PCO2 45 mmHg (35-45); ABG PH 7.44 (7.35-7.45); ABG PO2 85 mmHg (83-108); ABG TCO2 32 mmol/L (19-24)
[2018-08-04] MEDS: PANTOPRAZOLE 40 MG/10 ML VIAL IV SCH (09:11)
[2018-08-04] MEDS: OSELTAMIVIR 75 MG CAP PO SCH ×2 (09:12→22:05)
[2018-08-04] MEDS: CEFEPIME 1 GM in SODIUM CHLORIDE 0.9% 50 ML IVPB SCH ×2 (09:12→20:04)
[2018-08-04] MEDS: ENOXAPARIN 40 MG/0.4 ML SYRINGE SQ SCH (09:12)
[2018-08-04] MEDS: ASPIRIN 81 MG PO SCH (09:14)
--- NOTE | 2018-08-04 10:51 | P.PN ---
Subjective Progress Note Date: 08/04/18 Principal diagnosis: shortness of breath Patient is a 28-year-old male with a past medical history of morbid obesity, family history of coronary artery disease and congestive heart failure who presented to the ER with complaints of shortness of breath and chest tightness. In the ER he underwent extensive testing. He was found to have influenza A, elevated troponin, elevated creatinine kinase, and EKG showing poor R-wave progression and T-wave inversion. He was in his given a dose of Tamiflu, and started on Rocephin and Zithromax. There was concern for influenza A with superimposed pneumonia and possible myocarditis. He was subsequently admitted to the cardiac unit and cardiology was consulted. Serial troponins remained elevated. His CPK downtrend and slightly after IV fluids. Echocardiogram was completed which showed an ejection fraction of 40-45%. Patient became acutely more dyspneic with increasing oxygen requirements and was subsequently admitted to the ICU. Pulmonary was consulted. Patient was placed on BiPAP due to hypercapnic hypoxic respiratory failure. He was started on Lasix and did have good urine output. He has slightly elevated lactic acid however he did not receive a bolus secondary to his respiratory difficulties. Initial blood culture came back with gram-positive and gram negatives, likely contaminant however in light of his worsening respiratory status his antibiotics were broadened to vancomycin, cefepime, and Zithromax. He initially was started on metoprolol but this was held secondary to bradycardia. Patient seen and examined at bedside. Feels that shortness of breath is improved from yesterday. Still no appetite. No nausea. No diarrhea. Still feeling tired and worn out. Brother at bedside and all questions answered. Objective - Vital Signs Vital signs: Vital Signs Temp 98.2 F 08/04/18 08:00 Pulse 49 L 08/04/18 10:00 Resp 24 08/04/18 10:00 BP 149/96 08/04/18 10:00 Pulse Ox 96 08/04/18 10:00 Intake & Output 08/03/18 08/04/18 08/04/18 18:59 06:59 18:59 Intake Total 790 1040 494 Output Total 1460 1340 170 Balance -670 -300 324 Intake: IV 790 430 50 Azithromycin 500 mg In 250 Sodium Chloride 0.9% 250 ml @ 250 mls/hr IVPB DAILY@1800 [facility] Rx#: [id number] Cefepime 1 gm In Sodium 50 50 Chloride 0.9% 50 ml @ 100 mls/hr IVPB Q12HR [facility] Rx #:[id number] Sodium Chloride 0.9% 1, 240 180 000 ml @ 75 mls/hr IV . [id number] [facility] Rx#:[id number] Vancomycin 2,500 mg In 500 Sodium Chloride 0.9% 500 ml 500 ml @ 167 mls/hr IVPB ONCE ONE Rx#: [id number] Intake, IV Titration 610 394 Amount Cefepime 1 gm In Sodium 50 Chloride 0.9% 50 ml @ 100 mls/hr IVPB Q12HR [facility] Rx #:[id number] Sodium Chloride 0.9% 1, 60 60 000 ml @ 100 mls/hr IV . Q10H [facility] Rx#:[id number] Vancomycin 2,500 mg In 500 334 Sodium Chloride 0.9% 500 ml 500 ml @ 167 mls/hr IVPB Q12H [facility] Rx#: [id number] Oral 50 Output: Urine 1460 1340 170 Other: Voiding Method Indwelling Catheter Indwelling Catheter Indwelling Catheter - Exam General: Ill appearing, moderate distress, obese, appears at stated age Derm: warm, dry Head: atraumatic, normocephalic, symmetric Eyes: EOMI, no lid lag, anicteric sclera Mouth: no lip lesion, mucus membranes moist Cardiovascular: S1S2 reg, no murmur, positive posterior tibial pulse bilateral, Lungs: Rhonchi bilateral bases, appears dyspneic, no accessory muscle use, on BiPAP Abdominal: soft, nontender to palpation, no guarding, no appreciable organomegaly Ext: no gross muscle atrophy, no edema, no contractures Neuro: CN II-XI grossly intact, no focal neuro deficits Psych: Alert, oriented, appropriate affect - Labs CBC & Chem 7: 08/04/18 05:00 08/04/18 05:00 Labs: Abnormal Lab Results - Last 24 Hours (Table) 08/03/18 08/03/18 08/04/18 Range/Units 12:14 18:10 00:01 Lymphocytes # (1.0-4.8) k/uL ABG HCO3 (21-25) mmol/L ABG Total CO2 (19-24) mmol/L BUN (9-20) mg/dL Glucose (74-99) mg/dL POC Glucose (mg/dL) 152 H 146 H 155 H (75-99) mg/dL Calcium (8.4-10.2) mg/dL Magnesium (1.6-2.3) mg/dL 08/04/18 08/04/18 08/04/18 Range/Units 05:00 05:00 06:40 Lymphocytes # 0.9 L (1.0-4.8) k/uL ABG HCO3 (21-25) mmol/L ABG Total CO2 (19-24) mmol/L BUN 35 H (9-20) mg/dL Glucose 166 H (74-99) mg/dL POC Glucose (mg/dL) 150 H (75-99) mg/dL Calcium 8.2 L (8.4-10.2) mg/dL Magnesium 2.8 H (1.6-2.3) mg/dL 08/04/18 Range/Units 08:47 Lymphocytes # (1.0-4.8) k/uL ABG HCO3 30 H (21-25) mmol/L ABG Total CO2 32 H (19-24) mmol/L BUN (9-20) mg/dL Glucose (74-99) mg/dL POC Glucose (mg/dL) (75-99) mg/dL Calcium (8.4-10.2) mg/dL Magnesium (1.6-2.3) mg/dL Microbiology - Last 24 Hours (Table) 08/02/18 17:36 Urine Culture - Final Urine,Catheterized 08/02/18 16:23 Blood Culture - Preliminary Blood No Growth after 24 hours 08/02/18 16:34 Blood Culture - Preliminary Blood No Growth after 24 hours 08/01/18 16:11 Blood Culture - Final Blood 08/01/18 16:11 Blood Culture Gram Stain - Preliminary Blood Blood Culture - Preliminary Coagulase Negative Staph 08/02/18 13:50 Gram Stain - Preliminary Sputum Sputum Culture - Preliminary Assessment and Plan Assessment: Pneumonia, probable post-influenza along with influenza A with sepsis as evidenced by tachycardia and tachypnea on arrival -Continue with cefepime, Vanco, and Zithromax, and Tamiflu. Would use Tamiflu despite limited evidence of severity of illness despite being greater than the treatment window as per current CDC recommendations. -Follow chest x-ray until clear -Pulmonary hygiene -Sputum culture -DuoNeb -Pulmonary recommendations ARDS - PAo2 to FiO2 ratio of 141 and bilateral infilatrates - treatment with ABX and tamiflu, conservative fluids,BiPap Acute hypoxic/hypercapnic respiratory failure -Bronchodilators, steroids, and antibiotics as listed above -On BiPAP therapy wean as able -Pulmonary recommendations New-onset systolic cardiomyopathy with ejection fraction 40-45% -Patient not tolerate beta blockers secondary to hypotension/ bradycardia and this was stopped -Not candidate for KANDY inhibitor secondary to hypotension and acute kidney injury -Cardiology recommendations appreciated, will need ischemic evaluation after stabilization of acute illness, likely in outpatient setting Coag negative staph confirmed in blood, likely contaminant - repeat BC negative for 24 hours - follow BC and await sputum cultures. Elevated troponin, possible ischemic etiology versus nonischemic etiology could be secondary to hypoxemia, viral infection, or sepsis -Cardiology recommendations appreciated. Ischemic evaluation planned, lying Morbid obesity with BMI 63 -Structured outpatient weight loss Hyponatremia secondary to dehydration, resolved Elevated lactic acid Mild rhabdomyolysis, improved Positive d-dimer DVT prophylaxis: Lovenox Discussed with: Patient, nursing, family Anticipated discharge: 3-[address]: Home A total of 35 minutes was spent on the care of this complex patient more than 50 % of the time was spent in counseling and care coordination.
[2018-08-04 12:09] LABS: Glucose,Whole Blood 149 mg/dL (75-99)
--- NOTE | 2018-08-04 15:36 | P.PN ---
Subjective Progress Note Date: 08/04/18 A morbidly obese 28-year-old male patient, essentially negative past medical history, came into the hospital because of progressive shortness of breath and acute hypoxic respiratory failure. This afternoon, the patient was getting worse in terms of his pulmonary status and hypoxemia. He was on high flow oxygen 10 L per minute nasal cannula. He was still desaturating. Was tachypneic and in significant respiratory distress. Based on that he got moved to the intensive care unit where he was placed on a BiPAP at a pressure of 12/5 cm of water with an FiO2 of 60%. His pulse ox currently is at 92%. Feeling slightly better. Very much BiPAP dependent. His minute ventilation at this point is somewhat between 18-20 L. He is able to tolerate a full face mask without any major difficulties. Note that the patient was having episodes of fever. His most recent temperature was 100.0. He was checked for influenza A and return agent to be positive. He also has a component of rhabdomyolysis with elevated CPK levels. Echo of the heart was done and showed also impairment of LV function with an ejection fraction of 40-45%. No segmental wall motion abnormalities. Pulmonary artery pressures are not elevated. Since he came to the ICU, the patient received a dose of Lasix and following that he diureses around 1500 mL of urine output. His blood gases while on the BiPAP showed a pH of 7.34 with a pCO2 of 50 and pO2 of 76 with an FiO2 of 60%. The patient's blood culture showed positive gram-positive cocci and gram-negative bacilli and this is one set out of 2 and probably contaminant. Antibiotic coverage was modified and the patient is currently on a combination of cefepime and Zithromax and the patient was given a dose of vancomycin. The patient was also placed on Tamiflu on IV Solu-Medrol. Lactic acid level is at 2.4. Troponins are minimally elevated at 0.1 and 0.07. BNP level is around 5000. On 08/03/2018 I'm seeing this patient for a follow-up. The patient remains in intensive care unit. He is an acute hypoxic respiratory failure secondary to bilateral pneumonia, influenza pneumonia. The patient came in to the ICU yesterday because of significant respiratory distress and severe hypoxemia. He was placed on a BiPAP and he spent the whole night on a BiPAP and he is able to tolerate the BiPAP without any major difficulties. He remains on a pressure of 12/5 with an FiO2 of 60%. He is still tachypneic and breathing at a faster rate however much more comfortable compared to yesterday. No use of accessory muscles of breathing on today's evaluation. His blood gases from today showed a pH of 7.41 with a pCO2 of 46 and pO2 of 75 and this was done on an FiO2 of 60% . Based on this marginal improvement in respiratory status, I decided not to intubate the patient was still monitoring him clinically. He is communicating and there is no altered mentation. Denies having any chest pain. On examination he is less wheezy and rhonchorous compared to yesterday. No sputum production. No chest pain. No hypotension. No hemodynamic instability. No tachycardia. The culture showed a coagulase-negative staph which is again a contaminant. The patient was given a combination of cefepime and Zithromax and vancomycin as broad-spectrum antibiotic coverage. The patient was also placed on Tamiflu. The patient is currently on IV Solu-Medrol 60 mg every 6 hours in addition to DuoNeb nebulized treatments around the clock. No nausea. No emesis. No abdominal pain. No abdominal distention. The patient remains nothing by mouth for now. He is not spiking any significant temperature since yesterday. White cell count is at 10.3. Renal function is within normal limits. CPK level is declining. On 08/04/2018, I'm seeing Migue La for a follow-up. He is a young male patient with acute bilateral pneumonia secondary to a and acute respiratory failure currently on BiPAP at a pressure of 12/5 cm of water and FiO2 of 60%. Is on Tamiflu in addition to broad-spectrum antibiotics. The patient is also on broad -spectrum antibiotics for now in addition to IV Solu-Medrol. Patient's x-ray shows diffuse breath and pulmonary infiltrates without any much improvement compared to yesterday. He is Still and the respiratory rate in the high 30s. Nevertheless, he tells that he is not fatigued. He is telling me that he is feeling better compared to yesterday. He is also reporting that he is less short of breath compared to yesterday. No chills. No fever. He was on IV Lasix and he was a negative fluid balance. I noted some increased thirst and mucous membrane dryness. The patient's serum bicarbs up to 30. His BUN is also 35 with a creatinine of 1.1. Based on that I stopped IV Lasix and started on IV fluids back again. His blood gases on the above-mentioned BiPAP setting showed a pH of 7.44 with a pCO2 of 45 and pO2 of 85. He is afebrile. No other significant events over the past 24 hours. Objective - Vital Signs Vital signs: Vital Signs Temp 98.6 F 08/04/18 12:00 Pulse 43 L 08/04/18 15:00 Resp 15 08/04/18 15:00 BP 146/99 08/04/18 15:00 Pulse Ox 95 08/04/18 15:00 Intake & Output 08/03/18 08/04/18 08/04/18 18:59 06:59 18:59 Intake Total 790 1040 1781 Output Total 1460 1340 470 Balance -670 -300 1311 Intake: IV 790 430 50 Azithromycin 500 mg In 250 Sodium Chloride 0.9% 250 ml @ 250 mls/hr IVPB DAILY@1800 [facility] Rx#: [id number] Cefepime 1 gm In Sodium 50 50 Chloride 0.9% 50 ml @ 100 mls/hr IVPB Q12HR [facility] Rx #:[id number] Sodium Chloride 0.9% 1, 240 180 000 ml @ 75 mls/hr IV . [id number] [facility] Rx#:[id number] Vancomycin 2,500 mg In 500 Sodium Chloride 0.9% 500 ml 500 ml @ 167 mls/hr IVPB ONCE ONE Rx#: [id number] Intake, IV Titration 610 681 Amount Cefepime 1 gm In Sodium 50 Chloride 0.9% 50 ml @ 100 mls/hr IVPB Q12HR [facility] Rx #:[id number] Sodium Chloride 0.9% 1, 60 180 000 ml @ 100 mls/hr IV . Q10H [facility] Rx#:[id number] Vancomycin 2,500 mg In 500 501 Sodium Chloride 0.9% 500 ml 500 ml @ 167 mls/hr IVPB Q12H [facility] Rx#: [id number] Oral 1050 Output: Urine 1460 1340 470 Other: Voiding Method Indwelling Catheter Indwelling Catheter Indwelling Catheter - Exam General: Ill appearing, still on BiPAP, still tachypneic although less short of breath compared to yesterday, and the patient is not struggling his extremities. The respiratory rate is somewhere between 28 and 33. Pulse ox is 92% on above-mentioned vent setting which includes a BiPAP pressure of 12/6 with an FiO2 of 60%. Overall primary status and the same compared to yesterday although he is noted to be less tachypneic compared to yesterday and subjectively is reporting less shortness of breath. Derm: warm, diaphoretic Head: atraumatic, normocephalic, symmetric Eyes: EOMI, no lid lag, anicteric sclera Mouth: no lip lesion, mucus membranes moist Cardiovascular: S1S2 reg, no murmur, positive posterior tibial pulse bilateral, Lungs: Rhonchi bilateral bases and the patient has diffuse crackles heard throughout the lung haile. The patient is moving adequate breath sounds bilaterally and the patient has having less wheezes and rhonchi compared to yesterday. There is improvement in the lung examination compared to yesterday' s findings. Abdominal: soft, nontender to palpation, no guarding, no appreciable organomegaly Ext: no gross muscle atrophy, no edema, no contractures Neuro: CN II-XI grossly intact, no focal neuro deficits Psych: Alert, oriented, appropriate affect , anxious - Labs CBC & Chem 7: 08/04/18 05:00 08/04/18 05:00 Labs: Abnormal Lab Results - Last 24 Hours (Table) 08/03/18 08/04/18 08/04/18 Range/Units 18:10 00:01 05:00 Lymphocytes # (1.0-4.8) k/uL ABG HCO3 (21-25) mmol/L ABG Total CO2 (19-24) mmol/L BUN 35 H (9-20) mg/dL Glucose 166 H (74-99) mg/dL POC Glucose (mg/dL) 146 H 155 H (75-99) mg/dL Calcium 8.2 L (8.4-10.2) mg/dL Magnesium 2.8 H (1.6-2.3) mg/dL Creatine Kinase (55-170) U/L 08/04/18 08/04/18 08/04/18 Range/Units 05:00 05:00 06:40 Lymphocytes # 0.9 L (1.0-4.8) k/uL ABG HCO3 (21-25) mmol/L ABG Total CO2 (19-24) mmol/L BUN (9-20) mg/dL Glucose (74-99) mg/dL POC Glucose (mg/dL) 150 H (75-99) mg/dL Calcium (8.4-10.2) mg/dL Magnesium (1.6-2.3) mg/dL Creatine Kinase 379 H (55-170) U/L 08/04/18 08/04/18 Range/Units 08:47 12:07 Lymphocytes # (1.0-4.8) k/uL ABG HCO3 30 H (21-25) mmol/L ABG Total CO2 32 H (19-24) mmol/L BUN (9-20) mg/dL Glucose (74-99) mg/dL POC Glucose (mg/dL) 149 H (75-99) mg/dL Calcium (8.4-10.2) mg/dL Magnesium (1.6-2.3) mg/dL Creatine Kinase (55-170) U/L Microbiology - Last 24 Hours (Table) 08/01/18 16:11 Blood Culture Gram Stain - Final Blood Blood Culture - Final Coagulase Negative Staph Coagulase Negative Staph#2 08/02/18 17:36 Urine Culture - Final Urine,Catheterized 08/02/18 16:23 Blood Culture - Preliminary Blood No Growth after 24 hours 08/02/18 16:34 Blood Culture - Preliminary Blood No Growth after 24 hours 08/01/18 16:11 Blood Culture - Final Blood Assessment and Plan Plan: Impression 1 acute hypoxic respiratory failure with significant respiratory distress and failure, patient is currently BiPAP dependent. The patient developed diffuse breath and pulmonary infiltrate likely on the basis of an acute influenza pneumonia. Acute noncardiogenic pulmonary edema/ARDS this to be considered. Despite his mildly impaired LV function, I think overall presentation is consistent with acute influenza pneumonia with possibly early signs of ARDS. This morning, the patient be kept on a BiPAP at the same setting. Monitor oxygenation. Monitor respiratory status. Continue Tamiflu. Continue IV Solu Medrol. Continue aggressive antibiotics. Chest x-ray was reviewed. Limited improvement compared to yesterday although there is some subjective improvement as reported by the patient. 2 acute shortness of breath secondary to above 3 diffuse breath and pulmonary infiltrates, consider viral/influenza pneumonia 4 acute rhabdomyolysis, improving CPK level and this indicated as normalizes currently down to 379. 5 mild lactic acidosis, recovered 6 abnormal blood culture, with positive blood cultures for gram-positive and gram-negative and possibly a contaminant. The patient has coagulase negative staph in the blood. 7 CHF with mild systolic dysfunction, possibly sepsis due to that ejection fraction of 40-45% 8 morbid obesity BMI of 63 Plan To same treatment. Continue BiPAP. Continue IV Solu Medrol. Continue Tamiflu. Continuous of antibiotics. No changes on his BiPAP settings. May consider switching this patient to airvo oxygen if he is able to tolerate to come off the BiPAP. I think is and that she is very borderline. Repeat chest x -ray in the morning. Stopped IV Lasix. Put the patient IV fluids for some hydration. He'll be laced on normal saline at the rate of 100 mL an hour. We' ll continue to follow. Condition remains critical. Still considerable chance for him failing and requiring intubation mechanical ventilation. For that reason have a Nice you. Updated the father on his condition. We'll continue to follow. This evaluation was done and more than 30 minutes. Time with Patient: Greater than 30
[2018-08-04] MEDS: AZITHROMYCIN 500 MG in SODIUM CHLORIDE 0.9% 250 ML IVPB SCH (16:31)
[2018-08-04 18:01] LABS: Glucose,Whole Blood 156 mg/dL (75-99)
[2018-08-05 00:05] LABS: Glucose,Whole Blood 156 mg/dL (75-99)
[2018-08-05] MEDS: INSULIN ASPART 100 UNIT/ML 1 ML 10 ML VIAL SQ SCH ×5 (00:26→23:33)
[2018-08-05] MEDS: hydrALAZINE HCL 20 MG/ML 1 ML VIAL IVP PRN ×3 (01:10→22:07)
[2018-08-05 03:32] LABS: Anion Gap 4 mmol/L; Blood Urea Nitrogen 37 mg/dL (9-20); Calcium 8.1 mg/dL (8.4-10.2); Carbon Dioxide 30 mmol/L (22-30); Chloride 105 mmol/L (98-107); Glucose 168 mg/dL (74-99); Magnesium 3.2 mg/dL (1.6-2.3); Phosphorus 4.1 mg/dL (2.5-4.5); Sodium 139 mmol/L (137-145)
[2018-08-05 05:02] LABS: HCT 40.4 % (39.0-53.0); HGB 12.8 gm/dL (13.0-17.5); MCH 27.6 pg (25.0-35.0); MCHC 31.7 g/dL (31.0-37.0); MCV 86.9 fL (80.0-100.0); Mean Platelet Volume 7.7; Platelet Count 214 k/uL (150-450); RBC 4.65 m/uL (4.30-5.90); RDW 13.8 % (11.5-15.5); WBC 10.1 k/uL (3.8-10.6)
[2018-08-05] MEDS: methylPREDNISolone SOD SUCCI 125 MG/2 ML VIAL IV SCH ×4 (05:25→21:23)
[2018-08-05 05:55] LABS: Glucose,Whole Blood 173 mg/dL (75-99)
--- NOTE | 2018-08-05 06:51 | XR ---
EXAMINATION TYPE: XR chest 1V portable DATE OF EXAM: 08/05/2018 HISTORY: pneumonia. REFERENCE: Previous study dated 08/04/2018. FINDINGS: The heart appears enlarged. Lung volumes are decreased. There is vascular congestion. I cou ld not exclude some degree of edema. No definite pleural fluid is seen. IMPRESSION: 1. FINDINGS SUGGESTIVE OF CONGESTIVE HEART FAILURE. 2. I COULD NOT EXCLUDE SUPERIMPOSED PNEUMONIA.
[2018-08-05] MEDS ORDERED: VANCOMYCIN TROUGH DUE 1 EACH MISC MISCELLANE ONE (07:00)
[2018-08-05] MEDS: IPRATROPIUM-ALBUTEROL 3 ML NEB INHALATION PRN ×3 (08:16→20:25)
[2018-08-05] MEDS: ASPIRIN 81 MG PO SCH (09:18)
[2018-08-05] MEDS: PANTOPRAZOLE 40 MG/10 ML VIAL IV SCH (09:18)
[2018-08-05] MEDS: ENOXAPARIN 40 MG/0.4 ML SYRINGE SQ SCH (09:19)
[2018-08-05] MEDS: CEFEPIME 1 GM in SODIUM CHLORIDE 0.9% 50 ML IVPB SCH ×2 (09:19→21:23)
[2018-08-05] MEDS: VANCOMYCIN 2,500 MG in SODIUM CHLORIDE 0.9% 500 ML 500 ML IVPB SCH ×2 (09:19→20:49)
[2018-08-05] MEDS: OSELTAMIVIR 75 MG CAP PO SCH ×2 (09:19→20:49)
--- NOTE | 2018-08-05 12:02 | PN ---
PROGRESS NOTE Mr. Bertrand is a 28-year-old male who presented with influenza A pneumonia with respiratory failure and ARDS. He is feeling better today. He is on the nasal cannula. His breathing is stable. He is denying any chest pain. He denies any dizziness or palpitation. He denies any nausea. He is in sinus mechanism. His echocardiogram during this admission has revealed an ejection fraction of 45% with mild mitral and tricuspid regurgitation. He continues to be at this time on aspirin, vancomycin, azithromycin that has been stopped this morning, and Maxipime. PHYSICAL EXAMINATION: Blood pressure in the 120s with a heart rate in the 60s. LUNGS: Clear. HEART: Regular rate and rhythm. S1, S2. No S3. No rub. LUNGS: Decreased air exchange. No wheezes. ABDOMEN: Soft, obese, nontender. EXTREMITIES: No significant edema. LAB DATA: BUN and creatinine 37 and 1.0, potassium 5.0. IMPRESSION: 1. Respiratory failure with acute respiratory distress syndrome related to influenza A infection. 2. Respiratory failure, improving. 3. Morbid obesity. RECOMMENDATIONS: From the cardiac standpoint, he is stable. Will continue present therapy. We will see him on an as-needed basis. Please feel free to call us for any question. MMODL / IJN: [id number] /
[2018-08-05 12:08] LABS: Glucose,Whole Blood 163 mg/dL (75-99)
--- NOTE | 2018-08-05 14:27 | P.PN ---
Subjective Progress Note Date: 08/05/18 A morbidly obese 28-year-old male patient, essentially negative past medical history, came into the hospital because of progressive shortness of breath and acute hypoxic respiratory failure. This afternoon, the patient was getting worse in terms of his pulmonary status and hypoxemia. He was on high flow oxygen 10 L per minute nasal cannula. He was still desaturating. Was tachypneic and in significant respiratory distress. Based on that he got moved to the intensive care unit where he was placed on a BiPAP at a pressure of 12/5 cm of water with an FiO2 of 60%. His pulse ox currently is at 92%. Feeling slightly better. Very much BiPAP dependent. His minute ventilation at this point is somewhat between 18-20 L. He is able to tolerate a full face mask without any major difficulties. Note that the patient was having episodes of fever. His most recent temperature was 100.0. He was checked for influenza A and nocturnist physician to be positive. He also has a component of rhabdomyolysis with elevated CPK levels. Echo of the heart was done and showed also impairment of LV function with an ejection fraction of 40-45%. No segmental wall motion abnormalities. Pulmonary artery pressures are not elevated. Since he came to the ICU, the patient received a dose of Lasix and following that he diureses around 1500 mL of urine output. His blood gases while on the BiPAP showed a pH of 7.34 with a pCO2 of 50 and pO2 of 76 with an FiO2 of 60%. The patient's blood culture showed positive gram-positive cocci and gram-negative bacilli and this is one set out of 2 and probably contaminant. Antibiotic coverage was modified and the patient is currently on a combination of cefepime and Zithromax and the patient was given a dose of vancomycin. The patient was also placed on Tamiflu on IV Solu-Medrol. Lactic acid level is at 2.4. Troponins are minimally elevated at 0.1 and 0.07. BNP level is around 5000. On 08/03/2018 I'm seeing this patient for a follow-up. The patient remains in intensive care unit. He is an acute hypoxic respiratory failure secondary to bilateral pneumonia, influenza pneumonia. The patient came in to the ICU yesterday because of significant respiratory distress and severe hypoxemia. He was placed on a BiPAP and he spent the whole night on a BiPAP and he is able to tolerate the BiPAP without any major difficulties. He remains on a pressure of 12/5 with an FiO2 of 60%. He is still tachypneic and breathing at a faster rate however much more comfortable compared to yesterday. No use of accessory muscles of breathing on today's evaluation. His blood gases from today showed a pH of 7.41 with a pCO2 of 46 and pO2 of 75 and this was done on an FiO2 of 60% . Based on this marginal improvement in respiratory status, I decided not to intubate the patient was still monitoring him clinically. He is communicating and there is no altered mentation. Denies having any chest pain. On examination he is less wheezy and rhonchorous compared to yesterday. No sputum production. No chest pain. No hypotension. No hemodynamic instability. No tachycardia. The culture showed a coagulase-negative staph which is again a contaminant. The patient was given a combination of cefepime and Zithromax and vancomycin as broad-spectrum antibiotic coverage. The patient was also placed on Tamiflu. The patient is currently on IV Solu-Medrol 60 mg every 6 hours in addition to DuoNeb nebulized treatments around the clock. No nausea. No emesis. No abdominal pain. No abdominal distention. The patient remains nothing by mouth for now. He is not spiking any significant temperature since yesterday. White cell count is at 10.3. Renal function is within normal limits. CPK level is declining. On 08/04/2018, I'm seeing Miguel A for a follow-up. He is a young male patient with acute bilateral pneumonia secondary to a and acute respiratory failure currently on BiPAP at a pressure of 12/5 cm of water and FiO2 of 60%. Is on Tamiflu in addition to broad-spectrum antibiotics. The patient is also on broad -spectrum antibiotics for now in addition to IV Solu-Medrol. Patient's x-ray shows diffuse breath and pulmonary infiltrates without any much improvement compared to yesterday. He is Still and the respiratory rate in the high 30s. Nevertheless, he tells that he is not fatigued. He is telling me that he is feeling better compared to yesterday. He is also reporting that he is less short of breath compared to yesterday. No chills. No fever. He was on IV Lasix and he was a negative fluid balance. I noted some increased thirst and mucous membrane dryness. The patient's serum bicarbs up to 30. His BUN is also 35 with a creatinine of 1.1. Based on that I stopped IV Lasix and started on IV fluids back again. His blood gases on the above-mentioned BiPAP setting showed a pH of 7.44 with a pCO2 of 45 and pO2 of 85. He is afebrile. No other significant events over the past 24 hours. On 08/05/2018, patient is looking better and less short of breath compared to yesterday. Earlier this morning I took the patient off the BiPAP and put him on high flow oxygen at 15 L per minute nasal cannula. His pulse ox currently 97 %. He'll be provided some liquid diet. No chest pain. No nausea. No vomiting. No diarrhea. No fever chills or night sweats. No other complaints otherwise for now. Remains on examination bronchodilators and systemic steroids. Objective - Vital Signs Vital signs: Vital Signs Temp 97.5 F L 08/05/18 12:00 Pulse 64 08/05/18 13:00 Resp 26 H 08/05/18 13:00 BP 155/88 08/05/18 13:00 Pulse Ox 97 08/05/18 13:00 Intake & Output 08/04/18 08/05/18 08/05/18 18:59 06:59 18:59 Intake Total 2571 1110 2338 Output Total 570 1035 475 Balance 2000 75 1863 Intake: IV 771 91 7697 Azithromycin 500 mg In 250 Sodium Chloride 0.9% 250 ml @ 250 mls/hr IVPB DAILY@1800 [facility] Rx#: [id number] Cefepime 1 gm In Sodium 50 50 100 Chloride 0.9% 50 ml @ 100 mls/hr IVPB Q12HR [facility] Rx #:[id number] Sodium Chloride 0.9% 1, 1500 000 ml @ 100 mls/hr IV . Q10H [facility] Rx#:[id number] Vancomycin 2,500 mg In 668 Sodium Chloride 0.9% 500 ml 500 ml @ 167 mls/hr IVPB Q12H [facility] Rx#: [id number] Intake, IV Titration 721 760 20 Amount Sodium Chloride 0.9% 1, 220 260 20 000 ml @ 100 mls/hr IV . Q10H [facility] Rx#:[id number] Vancomycin 2,500 mg In 501 500 Sodium Chloride 0.9% 500 ml 500 ml @ 167 mls/hr IVPB Q12H [facility] Rx#: [id number] Oral 1550 300 50 Output: Urine 570 1035 475 Other: Voiding Method Indwelling Catheter Indwelling Catheter Indwelling Catheter - Exam General: She is less short of breath compared to yesterday. The patient is tolerating high flow oxygen at 15 L per minute nasal cannula and he was off the BiPAP. He is not using excessive muscle breathing. No significant tachypnea on today's evaluation. Derm: warm, diaphoretic Head: atraumatic, normocephalic, symmetric Eyes: EOMI, no lid lag, anicteric sclera Mouth: no lip lesion, mucus membranes moist Cardiovascular: S1S2 reg, no murmur, positive posterior tibial pulse bilateral, Lungs: Rhonchi bilateral bases and the patient has diffuse crackles heard throughout the lung haile. The patient is moving adequate breath sounds bilaterally and the patient has having less wheezes and rhonchi compared to yesterday. There is improvement in the lung examination compared to yesterday' s findings. Abdominal: soft, nontender to palpation, no guarding, no appreciable organomegaly Ext: no gross muscle atrophy, no edema, no contractures Neuro: CN II-XI grossly intact, no focal neuro deficits Psych: Alert, oriented, appropriate affect , much less anxious compared to yesterday - Labs CBC & Chem 7: 08/05/18 03:30 08/05/18 03:15 Labs: Abnormal Lab Results - Last 24 Hours (Table) 08/04/18 08/05/18 08/05/18 Range/Units 18:00 00:03 03:15 Hgb (13.0-17.5) gm/dL BUN 37 H (9-20) mg/dL Glucose 168 H (74-99) mg/dL POC Glucose (mg/dL) 156 H 156 H (75-99) mg/dL Calcium 8.1 L (8.4-10.2) mg/dL Magnesium 3.2 H (1.6-2.3) mg/dL 08/05/18 08/05/18 08/05/18 Range/Units 03:30 05:53 12:06 Hgb 12.8 L (13.0-17.5) gm/dL BUN (9-20) mg/dL Glucose (74-99) mg/dL POC Glucose (mg/dL) 173 H 163 H (75-99) mg/dL Calcium (8.4-10.2) mg/dL Magnesium (1.6-2.3) mg/dL Microbiology - Last 24 Hours (Table) 08/02/18 13:50 Gram Stain - Final Sputum Sputum Culture - Final 08/02/18 16:23 Blood Culture - Preliminary Blood No Growth after 48 hours 08/02/18 16:34 Blood Culture - Preliminary Blood No Growth after 48 hours 08/01/18 16:11 Blood Culture Gram Stain - Final Blood Blood Culture - Final Coagulase Negative Staph Coagulase Negative Staph#2 Assessment and Plan Plan: Impression 1 acute hypoxic respiratory failure with significant respiratory distress and failure, patient is currently BiPAP dependent. The patient developed diffuse breath and pulmonary infiltrate likely on the basis of an acute influenza pneumonia. On today's evaluation there is improvement in the patient is currently on high flow oxygen at 15 L per minute nasal cannula. The patient has been taken off the BiPAP. Improving. 2 acute shortness of breath secondary to above 3 diffuse breath and pulmonary infiltrates, consider viral/influenza pneumonia 4 acute rhabdomyolysis, improving 5 mild lactic acidosis, recovered 6 abnormal blood culture, with positive blood cultures for gram-positive and gram-negative and possibly a contaminant. The patient has coagulase negative staph in the blood. 7 CHF with mild systolic dysfunction, possibly sepsis due to that ejection fraction of 40-45% 8 morbid obesity BMI of 63 Plan I'm going to take this patient off the BiPAP. Wean off FiO2 as tolerated. Discontinue the Zithromax. Continue vancomycin and cefepime and Tamiflu for now. Continue IV Solu Medrol. Advance diet. We'll continue to follow.
[2018-08-05 17:21] LABS: Glucose,Whole Blood 168 mg/dL (75-99)
--- NOTE | 2018-08-05 18:38 | P.PN ---
Subjective Progress Note Date: 08/05/18 Principal diagnosis: shortness of breath Patient is a 28-year-old male with a past medical history of morbid obesity, family history of coronary artery disease and congestive heart failure who presented to the ER with complaints of shortness of breath and chest tightness. In the ER he underwent extensive testing. He was found to have influenza A, elevated troponin, elevated creatinine kinase, and EKG showing poor R-wave progression and T-wave inversion. He was in his given a dose of Tamiflu, and started on Rocephin and Zithromax. There was concern for influenza A with superimposed pneumonia and possible myocarditis. He was subsequently admitted to the cardiac unit and cardiology was consulted. Serial troponins remained elevated. His CPK downtrend and slightly after IV fluids. Echocardiogram was completed which showed an ejection fraction of 40-45%. Patient became acutely more dyspneic with increasing oxygen requirements and was subsequently admitted to the ICU. Pulmonary was consulted. Patient was placed on BiPAP due to hypercapnic hypoxic respiratory failure. He was started on Lasix and did have good urine output. He has slightly elevated lactic acid however he did not receive a bolus secondary to his respiratory difficulties. Initial blood culture came back with gram-positive and gram negatives, likely contaminant however in light of his worsening respiratory status his antibiotics were broadened to vancomycin, cefepime, and Zithromax. He initially was started on metoprolol but this was held secondary to bradycardia. He required BiPAP through the morning of 08/05. Patient seen and examined at bedside. Today his appetite is starting to kick back in. No nausea or. Still feeling slightly short of breath but states it's getting better every day. No diarrhea, no constipation, feeling fatigued. Objective - Vital Signs Vital signs: Vital Signs Temp 97.8 F 08/05/18 04:00 Pulse 64 08/05/18 08:25 Resp 34 H 08/05/18 07:00 BP 141/87 08/05/18 07:00 Pulse Ox 96 08/05/18 09:46 Intake & Output 08/04/18 08/05/18 08/05/18 18:59 06:59 18:59 Intake Total 2571 1110 70 Output Total 570 1035 45 Balance 2000 75 25 Intake: IV 300 50 Azithromycin 500 mg In 250 Sodium Chloride 0.9% 250 ml @ 250 mls/hr IVPB DAILY@1800 [facility] Rx#: [id number] Cefepime 1 gm In Sodium 50 50 Chloride 0.9% 50 ml @ 100 mls/hr IVPB Q12HR [facility] Rx #:[id number] Intake, IV Titration 721 760 20 Amount Sodium Chloride 0.9% 1, 220 260 20 000 ml @ 100 mls/hr IV . Q10H [facility] Rx#:[id number] Vancomycin 2,500 mg In 501 500 Sodium Chloride 0.9% 500 ml 500 ml @ 167 mls/hr IVPB Q12H [facility] Rx#: [id number] Oral 1550 300 50 Output: Urine 570 1035 45 Other: Voiding Method Indwelling Catheter Indwelling Catheter - Exam General: Ill appearing, mild distress, obese, appears at stated age Derm: warm, dry Head: atraumatic, normocephalic, symmetric Eyes: EOMI, no lid lag, anicteric sclera Mouth: no lip lesion, mucus membranes moist Cardiovascular: S1S2 reg, no murmur, positive posterior tibial pulse bilateral, Lungs: decreased bilateral bases, appears dyspneic, no accessory muscle use, on BiPAP Abdominal: soft, nontender to palpation, no guarding, no appreciable organomegaly Ext: no gross muscle atrophy, no edema, no contractures Neuro: CN II-XI grossly intact, no focal neuro deficits Psych: Alert, oriented, appropriate affect - Labs CBC & Chem 7: 08/05/18 03:30 08/05/18 03:15 Labs: Abnormal Lab Results - Last 24 Hours (Table) 08/04/18 08/04/18 08/04/18 Range/Units 05:00 12:07 18:00 Hgb (13.0-17.5) gm/dL BUN (9-20) mg/dL Glucose (74-99) mg/dL POC Glucose (mg/dL) 149 H 156 H (75-99) mg/dL Calcium (8.4-10.2) mg/dL Magnesium (1.6-2.3) mg/dL Creatine Kinase 379 H (55-170) U/L 08/05/18 08/05/18 08/05/18 Range/Units 00:03 03:15 03:30 Hgb 12.8 L (13.0-17.5) gm/dL BUN 37 H (9-20) mg/dL Glucose 168 H (74-99) mg/dL POC Glucose (mg/dL) 156 H (75-99) mg/dL Calcium 8.1 L (8.4-10.2) mg/dL Magnesium 3.2 H (1.6-2.3) mg/dL Creatine Kinase (55-170) U/L 08/05/18 Range/Units 05:53 Hgb (13.0-17.5) gm/dL BUN (9-20) mg/dL Glucose (74-99) mg/dL POC Glucose (mg/dL) 173 H (75-99) mg/dL Calcium (8.4-10.2) mg/dL Magnesium (1.6-2.3) mg/dL Creatine Kinase (55-170) U/L Microbiology - Last 24 Hours (Table) 08/02/18 16:23 Blood Culture - Preliminary Blood No Growth after 48 hours 08/02/18 16:34 Blood Culture - Preliminary Blood No Growth after 48 hours 08/01/18 16:11 Blood Culture Gram Stain - Final Blood Blood Culture - Final Coagulase Negative Staph Coagulase Negative Staph#2 Assessment and Plan Assessment: Pneumonia, probable post-influenza along with influenza A with sepsis as evidenced by tachycardia and tachypnea on arrival -Continue with cefepime, Vanco, and Tamiflu. Would use Tamiflu despite limited evidence of severity of illness despite being greater than the treatment window as per current CDC recommendations. -Follow chest x-ray until clear -Pulmonary hygiene -Sputum culture -DuoNeb -Pulmonary recommendations ARDS - PAo2 to FiO2 ratio of 141 and bilateral infilatrates - treatment with ABX and tamiflu, conservative fluids, BiPap try to wean today Acute hypoxic/hypercapnic respiratory failure -Bronchodilators, steroids, and antibiotics as listed above -Trial on High FLow today -Pulmonary recommendations New-onset systolic cardiomyopathy with ejection fraction 40-45% -Patient not tolerate beta blockers secondary to hypotension/ bradycardia and this was stopped -start lisinopril -Cardiology recommendations appreciated, will need ischemic evaluation after stabilization of acute illness, likely in outpatient setting Elevated troponin, probable nonischemic etiology could be secondary to hypoxemia , viral infection, or sepsis less like ischemic etiology -Cardiology recommendations appreciated. Ischemic evaluation planned, lying Morbid obesity with BMI 63 -Structured outpatient weight loss Hyponatremia secondary to dehydration, resolved Elevated lactic acid Mild rhabdomyolysis, improved Positive d-dimer DVT prophylaxis: Lovenox Discussed with: Patient, Dr. Sparks, nursing Anticipated discharge: 2-[address]: Home A total of 35 minutes was spent on the care of this complex patient more than 50 % of the time was spent in counseling and care coordination.
[2018-08-05] MEDS: SODIUM CHLORIDE 0.9% 1,000 ML IV SCH (19:05)
[2018-08-05] MEDS: LISINOPRIL 10 MG TAB PO SCH (19:08)
[2018-08-05 23:33] LABS: Glucose,Whole Blood 177 mg/dL (75-99)
[2018-08-06] MEDS: methylPREDNISolone SOD SUCCI 125 MG/2 ML VIAL IV SCH ×4 (03:59→23:41)
[2018-08-06] MEDS: SODIUM CHLORIDE 0.9% 1,000 ML IV SCH ×2 (03:59→15:12)
[2018-08-06 04:19] LABS: Basophils % (A) 0 %; Eosinophils % (A) 1 %; HCT 35.9 % (39.0-53.0); HGB 11.4 gm/dL (13.0-17.5); Lymphocytes # (A) 0.5 k/uL (1.0-4.8); Lymphocytes % (A) 7 %; MCH 27.6 pg (25.0-35.0); MCHC 31.6 g/dL (31.0-37.0); MCV 87.2 fL (80.0-100.0); Monocytes # (A) 0.5 k/uL (0-1.0); Monocytes % (A) 7 %; Neutrophils % (A) 83 %; Platelet Count 184 k/uL (150-450); RBC 4.12 m/uL (4.30-5.90); RDW 13.7 % (11.5-15.5); WBC 7.1 k/uL (3.8-10.6)
[2018-08-06 04:29] LABS: Anion Gap 4 mmol/L; Blood Urea Nitrogen 25 mg/dL (9-20); Carbon Dioxide 26 mmol/L (22-30); Chloride 112 mmol/L (98-107); Glucose 142 mg/dL (74-99); Magnesium 2.6 mg/dL (1.6-2.3); Phosphorus 3.2 mg/dL (2.5-4.5); Potassium 4.2 mmol/L (3.5-5.1); Sodium 142 mmol/L (137-145)
[2018-08-06 04:35] LABS: Calcium 6.5 mg/dL (8.4-10.2)
--- NOTE | 2018-08-06 06:43 | XR ---
EXAMINATION TYPE: XR chest 1V portable DATE OF EXAM: 08/06/2018 HISTORY: pneumonia. REFERENCE: Previous study dated 08/05/2018. FINDINGS: The heart is enlarged. There is patchy bilateral airspace disease. There are small, bilater al effusions. IMPRESSION: STABLE FINDINGS WHICH MAY REPRESENT PULMONARY EDEMA OR SUPERIMPOSED PNEUMONIA.
[2018-08-06 07:46] LABS: Glucose,Whole Blood 176 mg/dL (75-99)
[2018-08-06] MEDS: INSULIN ASPART 100 UNIT/ML 1 ML 10 ML VIAL SQ SCH ×5 (07:51→20:49)
[2018-08-06] MEDS: IPRATROPIUM-ALBUTEROL 3 ML NEB INHALATION PRN (08:06)
[2018-08-06] MEDS: VANCOMYCIN 2,500 MG in SODIUM CHLORIDE 0.9% 500 ML 500 ML IVPB SCH ×2 (08:56→20:44)
[2018-08-06] MEDS: CEFEPIME 1 GM in SODIUM CHLORIDE 0.9% 50 ML IVPB SCH ×2 (09:00→20:44)
[2018-08-06] MEDS: ASPIRIN 81 MG PO SCH (09:01)
[2018-08-06] MEDS: OSELTAMIVIR 75 MG CAP PO SCH (09:01)
[2018-08-06] MEDS: PANTOPRAZOLE 40 MG TABLET PO SCH (09:01)
[2018-08-06] MEDS: ENOXAPARIN 40 MG/0.4 ML SYRINGE SQ SCH (09:01)
[2018-08-06] MEDS ORDERED: LISINOPRIL 20 MG TAB PO SCH (09:45)
--- NOTE | 2018-08-06 09:45 | P.PN ---
Subjective Progress Note Date: 08/06/18 Principal diagnosis: shortness of breath Patient is a 28-year-old male with a past medical history of morbid obesity, family history of coronary artery disease and congestive heart failure who presented to the ER with complaints of shortness of breath and chest tightness. In the ER he underwent extensive testing. He was found to have influenza A, elevated troponin, elevated creatinine kinase, and EKG showing poor R-wave progression and T-wave inversion. He was in his given a dose of Tamiflu, and started on Rocephin and Zithromax. There was concern for influenza A with superimposed pneumonia and possible myocarditis. He was subsequently admitted to the cardiac unit and cardiology was consulted. Serial troponins remained elevated. His CPK downtrend and slightly after IV fluids. Echocardiogram was completed which showed an ejection fraction of 40-45%. Patient became acutely more dyspneic with increasing oxygen requirements and was subsequently admitted to the ICU. Pulmonary was consulted. Patient was placed on BiPAP due to hypercapnic hypoxic respiratory failure. He was started on Lasix and did have good urine output. He has slightly elevated lactic acid however he did not receive a bolus secondary to his respiratory difficulties. Initial blood culture came back with gram-positive and gram negatives, likely contaminant however in light of his worsening respiratory status his antibiotics were broadened to vancomycin, cefepime, and Zithromax. He initially was started on metoprolol but this was held secondary to bradycardia. He required BiPAP through the morning of 08/05. His zithromax was stopped on 08/05. He did try getting up to the bedside commode however his oxygen saturation dropped significantly and he became severely dyspneic. He then had to sit back in bed. No other acute events overnight. Heart rate is still decreasing to the 40s when sleeping but up to the 90s but alert and awake. Blood pressure has been slowly elevating as well. Patient seen and examined at bedside. Hepatitis C back in he ate well yesterday. No chest pain. Shortness of breath is improving daily. Still significantly fatigued. 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 He does have both short and long-term disability. He will also need a primary care physician at time of discharge. He wasn't capac and has [employer] insurance. Objective - Vital Signs Vital signs: Vital Signs Temp 98 F 08/06/18 04:00 Pulse 89 08/06/18 08:17 Resp 30 H 08/06/18 07:00 BP 141/87 08/06/18 07:00 Pulse Ox 93 L 08/06/18 08:07 Intake & Output 08/05/18 08/06/18 08/06/18 18:59 06:59 18:59 Intake Total 2838 2650 500 Output Total 900 1140 100 Balance 1938 1510 400 Intake: IV 2768 1750 100 Cefepime 1 gm In Sodium 100 50 Chloride 0.9% 50 ml @ 100 mls/hr IVPB Q12HR [facility] Rx #:[id number] Sodium Chloride 0.9% 1, 2000 1200 100 000 ml @ 100 mls/hr IV . Q10H [facility] Rx#:[id number] Vancomycin 2,500 mg In 668 500 Sodium Chloride 0.9% 500 ml 500 ml @ 167 mls/hr IVPB Q12H [facility] Rx#: [id number] Intake, IV Titration 20 Amount Sodium Chloride 0.9% 1, 20 000 ml @ 100 mls/hr IV . Q10H [facility] Rx#:[id number] Oral 50 900 400 Output: Urine 900 1140 100 Other: Voiding Method Indwelling Catheter Indwelling Catheter - Exam General: Ill appearing, mild distress, obese, appears at stated age Derm: warm, dry Head: atraumatic, normocephalic, symmetric Eyes: EOMI, no lid lag, anicteric sclera Mouth: no lip lesion, mucus membranes moist Cardiovascular: S1S2 reg, no murmur, positive posterior tibial pulse bilateral, Lungs: decreased bilateral bases, appears dyspneic, + accessory muscle use, on high flow Abdominal: soft, nontender to palpation, no guarding, no appreciable organomegaly Ext: no gross muscle atrophy, 1+ edema, no contractures Neuro: CN II-XI grossly intact, no focal neuro deficits Psych: Alert, oriented, appropriate affect - Labs CBC & Chem 7: 08/06/18 04:15 08/06/18 04:15 Labs: Abnormal Lab Results - Last 24 Hours (Table) 08/05/18 08/05/18 08/05/18 Range/Units 12:06 17:19 23:30 RBC (4.30-5.90) m/uL Hgb (13.0-17.5) gm/dL Hct (39.0-53.0) % Lymphocytes # (1.0-4.8) k/uL Chloride (98-107) mmol/L BUN (9-20) mg/dL Glucose (74-99) mg/dL POC Glucose (mg/dL) 163 H 168 H 177 H (75-99) mg/dL Calcium (8.4-10.2) mg/dL Magnesium (1.6-2.3) mg/dL 08/06/18 08/06/18 08/06/18 Range/Units 04:15 04:15 07:44 RBC 4.12 L (4.30-5.90) m/uL Hgb 11.4 L (13.0-17.5) gm/dL Hct 35.9 L (39.0-53.0) % Lymphocytes # 0.5 L (1.0-4.8) k/uL Chloride 112 H (98-107) mmol/L BUN 25 H (9-20) mg/dL Glucose 142 H (74-99) mg/dL POC Glucose (mg/dL) 176 H (75-99) mg/dL Calcium 6.5 L (8.4-10.2) mg/dL Magnesium 2.6 H (1.6-2.3) mg/dL Microbiology - Last 24 Hours (Table) 08/02/18 16:23 Blood Culture - Preliminary Blood No Growth after 72 hours 08/02/18 16:34 Blood Culture - Preliminary Blood No Growth after 72 hours 08/02/18 13:50 Gram Stain - Final Sputum Sputum Culture - Final Assessment and Plan Assessment: Pneumonia, probable post-influenza along with influenza A with sepsis as evidenced by tachycardia and tachypnea on arrival -Continue with cefepime, Vanco D # 4/5. - Tamiflu completed -Follow chest x-ray until clear -Pulmonary hygiene -Sputum culture with normal respiratory sasha, blood culture negative. -DuoNeb -Pulmonary recommendations ARDS - PAo2 to FiO2 ratio of 141 and bilateral infilatrates - treatment with ABX, pulm hygeine, limit fluids, follow CXR Acute hypoxic/hypercapnic respiratory failure -Bronchodilators, steroids, and antibiotics as listed above -off bipap 08/05 -Pulmonary recommendations New-onset systolic cardiomyopathy with ejection fraction 40-45% -Patient not tolerate beta blockers secondary to hypotension/ bradycardia and this was stopped -increase lisinopril -Cardiology recommendations appreciated, will need ischemic evaluation after stabilization of acute illness, likely in outpatient setting - outpatient sleep study and repeat echo Elevated troponin, probable nonischemic etiology could be secondary to hypoxemia , viral infection, or sepsis less like ischemic etiology -Cardiology recommendations appreciated. Ischemic evaluation planned as outpatient Morbid obesity with BMI 63 -Structured outpatient weight loss Hyponatremia secondary to dehydration, resolved Elevated lactic acid Mild rhabdomyolysis, improved Positive d-dimer Will need PCP, sleep study, cardio follow-up and pulm follow up on discharge. If needs home O2 on discharge will need to be off work, has short-term disability. DVT prophylaxis: Lovenox Discussed with: Patient, Dr. Sparks, nursing Anticipated discharge: 2-[address]: Home A total of 35 minutes was spent on the care of this complex patient more than 50 % of the time was spent in counseling and care coordination.
[2018-08-06 11:38] LABS: Glucose,Whole Blood 175 mg/dL (75-99)
--- NOTE | 2018-08-06 13:43 | P.PN ---
Subjective Progress Note Date: 08/06/18 A morbidly obese 28-year-old male patient, essentially negative past medical history, came into the hospital because of progressive shortness of breath and acute hypoxic respiratory failure. This afternoon, the patient was getting worse in terms of his pulmonary status and hypoxemia. He was on high flow oxygen 10 L per minute nasal cannula. He was still desaturating. Was tachypneic and in significant respiratory distress. Based on that he got moved to the intensive care unit where he was placed on a BiPAP at a pressure of 12/5 cm of water with an FiO2 of 60%. His pulse ox currently is at 92%. Feeling slightly better. Very much BiPAP dependent. His minute ventilation at this point is somewhat between 18-20 L. He is able to tolerate a full face mask without any major difficulties. Note that the patient was having episodes of fever. His most recent temperature was 100.0. 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 He also has a component of rhabdomyolysis with elevated CPK levels. Echo of the heart was done and showed also impairment of LV function with an ejection fraction of 40-45%. No segmental wall motion abnormalities. Pulmonary artery pressures are not elevated. Since he came to the ICU, the patient received a dose of Lasix and following that he diureses around 1500 mL of urine output. His blood gases while on the BiPAP showed a pH of 7.34 with a pCO2 of 50 and pO2 of 76 with an FiO2 of 60%. The patient's blood culture showed positive gram-positive cocci and gram-negative bacilli and this is one set out of 2 and probably contaminant. Antibiotic coverage was modified and the patient is currently on a combination of cefepime and Zithromax and the patient was given a dose of vancomycin. The patient was also placed on Tamiflu on IV Solu-Medrol. Lactic acid level is at 2.4. Troponins are minimally elevated at 0.1 and 0.07. BNP level is around 5000. On 08/03/2018 I'm seeing this patient for a follow-up. The patient remains in intensive care unit. He is an acute hypoxic respiratory failure secondary to bilateral pneumonia, influenza pneumonia. The patient came in to the ICU yesterday because of significant respiratory distress and severe hypoxemia. He was placed on a BiPAP and he spent the whole night on a BiPAP and he is able to tolerate the BiPAP without any major difficulties. He remains on a pressure of 12/5 with an FiO2 of 60%. He is still tachypneic and breathing at a faster rate however much more comfortable compared to yesterday. No use of accessory muscles of breathing on today's evaluation. His blood gases from today showed a pH of 7.41 with a pCO2 of 46 and pO2 of 75 and this was done on an FiO2 of 60% . Based on this marginal improvement in respiratory status, I decided not to intubate the patient was still monitoring him clinically. He is communicating and there is no altered mentation. Denies having any chest pain. On examination he is less wheezy and rhonchorous compared to yesterday. No sputum production. No chest pain. No hypotension. No hemodynamic instability. No tachycardia. The culture showed a coagulase-negative staph which is again a contaminant. The patient was given a combination of cefepime and Zithromax and vancomycin as broad-spectrum antibiotic coverage. The patient was also placed on Tamiflu. The patient is currently on IV Solu-Medrol 60 mg every 6 hours in addition to DuoNeb nebulized treatments around the clock. No nausea. No emesis. No abdominal pain. No abdominal distention. The patient remains nothing by mouth for now. He is not spiking any significant temperature since yesterday. White cell count is at 10.3. Renal function is within normal limits. CPK level is declining. On 08/04/2018, I'm seeing Miguel A for a follow-up. He is a young male patient with acute bilateral pneumonia secondary to a and acute respiratory failure currently on BiPAP at a pressure of 12/5 cm of water and FiO2 of 60%. Is on Tamiflu in addition to broad-spectrum antibiotics. The patient is also on broad -spectrum antibiotics for now in addition to IV Solu-Medrol. Patient's x-ray shows diffuse breath and pulmonary infiltrates without any much improvement compared to yesterday. He is Still and the respiratory rate in the high 30s. Nevertheless, he tells that he is not fatigued. He is telling me that he is feeling better compared to yesterday. He is also reporting that he is less short of breath compared to yesterday. No chills. No fever. He was on IV Lasix and he was a negative fluid balance. I noted some increased thirst and mucous membrane dryness. The patient's serum bicarbs up to 30. His BUN is also 35 with a creatinine of 1.1. Based on that I stopped IV Lasix and started on IV fluids back again. His blood gases on the above-mentioned BiPAP setting showed a pH of 7.44 with a pCO2 of 45 and pO2 of 85. He is afebrile. No other significant events over the past 24 hours. On 08/05/2018, patient is looking better and less short of breath compared to yesterday. Earlier this morning I took the patient off the BiPAP and put him on high flow oxygen at 15 L per minute nasal cannula. His pulse ox currently 97 %. He'll be provided some liquid diet. No chest pain. No nausea. No vomiting. No diarrhea. No fever chills or night sweats. No other complaints otherwise for now. Remains on examination bronchodilators and systemic steroids. On 08/06/2018, I'm seeing this patient for a follow-up. The patient is still on high flow oxygen 15 L per minute nasal cannula. The patient still desaturates with limited amount of activity. Is morbidly obese a BMI of 63. He is off the BiPAP and is able to tolerate diet. No nausea. No vomiting. No chest pain. No abdominal pain. No fever. Hemodynamically stable. The patient is on cefepime and vancomycin and Tamiflu. The patient also on IV Solu Medrol 60 mg IV push every 6 hours. The follow-up chest x-ray from today showed stable findings with some cardiomegaly and patchy bilateral airspace disease although this is improved since his admission to the ICU. Family is at the bedside. Objective - Vital Signs Vital signs: Vital Signs Temp 97.8 F 08/06/18 12:00 Pulse 54 L 08/06/18 12:00 Resp 22 08/06/18 12:00 BP 162/97 08/06/18 12:00 Pulse Ox 96 08/06/18 12:00 Intake & Output 08/05/18 08/06/18 08/06/18 18:59 06:59 18:59 Intake Total 2838 2650 1668 Output Total 900 1140 750 Balance 1938 1510 918 Intake: IV 2768 1750 1268 Cefepime 1 gm In Sodium 100 50 100 Chloride 0.9% 50 ml @ 100 mls/hr IVPB Q12HR [facility] Rx #:[id number] Sodium Chloride 0.9% 1, 2000 1200 500 000 ml @ 100 mls/hr IV . Q10H [facility] Rx#:[id number] Vancomycin 2,500 mg In 668 500 668 Sodium Chloride 0.9% 500 ml 500 ml @ 167 mls/hr IVPB Q12H [facility] Rx#: [id number] Intake, IV Titration 20 Amount Sodium Chloride 0.9% 1, 20 000 ml @ 100 mls/hr IV . Q10H [facility] Rx#:[id number] Oral 50 900 400 Output: Urine 900 1140 750 Other: Voiding Method Indwelling Catheter Indwelling Catheter Indwelling Catheter - Exam General: She is less short of breath compared to yesterday. The patient is tolerating high flow oxygen at 15 L per minute nasal cannula and he was off the BiPAP. He is not using excessive muscle breathing. No significant tachypnea on today's evaluation. Derm: warm, diaphoretic Head: atraumatic, normocephalic, symmetric Eyes: EOMI, no lid lag, anicteric sclera Mouth: no lip lesion, mucus membranes moist Cardiovascular: S1S2 reg, no murmur, positive posterior tibial pulse bilateral, Lungs: Rhonchi bilateral bases and the patient has diffuse crackles heard throughout the lung haile. The patient is moving adequate breath sounds bilaterally and the patient has having less wheezes and rhonchi compared to yesterday. There is improvement in the lung examination compared to yesterday' s findings. Abdominal: soft, nontender to palpation, no guarding, no appreciable organomegaly Ext: no gross muscle atrophy, no edema, no contractures Neuro: CN II-XI grossly intact, no focal neuro deficits Psych: Alert, oriented, appropriate affect , much less anxious compared to yesterday - Labs CBC & Chem 7: 08/06/18 04:15 08/06/18 04:15 Labs: Abnormal Lab Results - Last 24 Hours (Table) 08/05/18 08/05/18 08/06/18 Range/Units 17:19 23:30 04:15 RBC (4.30-5.90) m/uL Hgb (13.0-17.5) gm/dL Hct (39.0-53.0) % Lymphocytes # (1.0-4.8) k/uL Chloride 112 H (98-107) mmol/L BUN 25 H (9-20) mg/dL Glucose 142 H (74-99) mg/dL POC Glucose (mg/dL) 168 H 177 H (75-99) mg/dL Calcium 6.5 L (8.4-10.2) mg/dL Magnesium 2.6 H (1.6-2.3) mg/dL 08/06/18 08/06/18 08/06/18 Range/Units 04:15 07:44 11:36 RBC 4.12 L (4.30-5.90) m/uL Hgb 11.4 L (13.0-17.5) gm/dL Hct 35.9 L (39.0-53.0) % Lymphocytes # 0.5 L (1.0-4.8) k/uL Chloride (98-107) mmol/L BUN (9-20) mg/dL Glucose (74-99) mg/dL POC Glucose (mg/dL) 176 H 175 H (75-99) mg/dL Calcium (8.4-10.2) mg/dL Magnesium (1.6-2.3) mg/dL Microbiology - Last 24 Hours (Table) 08/02/18 16:23 Blood Culture - Preliminary Blood No Growth after 72 hours 08/02/18 16:34 Blood Culture - Preliminary Blood No Growth after 72 hours 08/02/18 13:50 Gram Stain - Final Sputum Sputum Culture - Final Assessment and Plan Plan: Impression 1 acute influenza pneumonia with secondary hypoxic respiratory failure. Currently off the BiPAP and the patient is on high flow oxygen at 15 L per minute nasal cannula. She is on Tamiflu. He is also covered empirically with cefepime and vancomycin for any possible superinfections. Clinically improving. Chest x-ray however still showing diffuse bilateral airspace disease. 2 acute shortness of breath secondary to above 3 diffuse breath and pulmonary infiltrates, consider viral/influenza pneumonia 4 acute rhabdomyolysis, improving 5 mild lactic acidosis, recovered 6 abnormal blood culture, with positive blood cultures for gram-positive and gram-negative and possibly a contaminant. The patient has coagulase negative staph in the blood. 7 CHF with mild systolic dysfunction, possibly sepsis due to that ejection fraction of 40-45% 8 morbid obesity BMI of 63 Plan Continue high flow oxygen. Wean it slowly to maintain a saturation above 90%. Continue Tamiflu. Continue bronchodilators. Continue systemic steroids. Advance diet. Gradually wean down the FiO2 to maintain a saturation above 90%. We'll continue to follow.
[2018-08-06] MEDS: hydrALAZINE HCL 25 MG TAB PO SCH ×2 (15:02→20:53)
[2018-08-06] MEDS: LISINOPRIL 10 MG TAB PO SCH (16:56)
[2018-08-06 17:17] LABS: Glucose,Whole Blood 246 mg/dL (75-99)
[2018-08-06 20:45] LABS: Glucose,Whole Blood 140 mg/dL (75-99)
[2018-08-06] MEDS: LISINOPRIL 20 MG TAB PO SCH (23:40)
[2018-08-07] MEDS: hydrALAZINE HCL 25 MG TAB PO SCH ×3 (03:18→16:51)
[2018-08-07 05:26] LABS: Anion Gap 0 mmol/L; Blood Urea Nitrogen 25 mg/dL (9-20); Carbon Dioxide 24 mmol/L (22-30); Chloride 115 mmol/L (98-107); Glucose 115 mg/dL (74-99); Magnesium 2.2 mg/dL (1.6-2.3); Potassium 4.3 mmol/L (3.5-5.1); Sodium 139 mmol/L (137-145)
[2018-08-07 07:02] LABS: Glucose,Whole Blood 120 mg/dL (75-99)
--- NOTE | 2018-08-07 07:33 | XR ---
EXAMINATION TYPE: XR chest 1V DATE OF EXAM: 08/07/2018 COMPARISON: 08/06/2018 HISTORY: Shortness of breath TECHNIQUE: Single frontal view of the chest is obtained. FINDINGS: Scattered airspace infiltrates noted throughout both lung haile are redemonstrated. Lung volumes are diminished. There is continued cardiomegaly. Hilar and mediastinal structures are stable. IMPRESSION: 1. Diffuse bilateral airspace disease is unchanged. Correlate clinically and progress studies are rec ommended.
[2018-08-07] MEDS: INSULIN ASPART 100 UNIT/ML 1 ML 10 ML VIAL SQ SCH ×4 (07:40→20:52)
[2018-08-07 08:08] LABS: HCT 34.6 % (39.0-53.0); HGB 11.2 gm/dL (13.0-17.5); Hypochromasia Slight; MCH 28.5 pg (25.0-35.0); MCHC 32.5 g/dL (31.0-37.0); MCV 87.7 fL (80.0-100.0); Mean Platelet Volume 8.1; Platelet Count 149 k/uL (150-450); RBC 3.95 m/uL (4.30-5.90); RDW 13.1 % (11.5-15.5); WBC 9.5 k/uL (3.8-10.6)
[2018-08-07] MEDS: LISINOPRIL 20 MG TAB PO SCH ×2 (08:09→20:30)
[2018-08-07] MEDS: PANTOPRAZOLE 40 MG TABLET PO SCH (08:09)
[2018-08-07] MEDS: ENOXAPARIN 40 MG/0.4 ML SYRINGE SQ SCH (08:09)
[2018-08-07] MEDS: HYDROCHLOROTHIAZIDE 25 MG TAB PO SCH (08:09)
[2018-08-07] MEDS: methylPREDNISolone SOD SUCCI 125 MG/2 ML VIAL IV SCH ×3 (08:09→20:30)
[2018-08-07] MEDS: VANCOMYCIN 2,500 MG in SODIUM CHLORIDE 0.9% 500 ML 500 ML IVPB SCH (08:10)
[2018-08-07] MEDS: CARVEDILOL 3.125 MG TAB PO SCH ×2 (08:10→16:51)
[2018-08-07] MEDS: ASPIRIN 81 MG PO SCH (08:11)
[2018-08-07] MEDS: CEFEPIME 1 GM in SODIUM CHLORIDE 0.9% 50 ML IVPB SCH ×2 (08:11→20:28)
[2018-08-07] MEDS: FUROSEMIDE 10 MG/ML 4 ML VIAL IV SCH ×2 (10:06→20:29)
--- NOTE | 2018-08-07 10:15 | PN ---
PROGRESS NOTE Mr. Bertrand is a 28-year-old male who presented with acute respiratory distress related to an infection. He had mild impaired left ventricular systolic function on the echocardiogram. His NT proBNP was elevated on admission. He is feeling better. He is feeling stronger. His breathing is stable. His blood pressure has been on the higher side. He has no chest pain, no palpitation. He denies any nausea. He is in sinus mechanism without any evidence off bradycardia or tachycardia. His urine output has been stable. He continues to be on aspirin once a day, hydralazine 50 mg 3 times a day, lisinopril 20 mg twice a day. PHYSICAL EXAMINATION: Blood pressure 154/106 with a heart rate in the 70s and 80s. Lungs with a few crackles. HEART: Regular rate and rhythm. S1, S2. No S3. No rub. ABDOMEN: Soft, obese, nontender. EXTREMITIES: With trace to 1+ edema. LAB DATA: BUN and creatinine 25 and 0.64. IMPRESSION: 1. Respiratory/failure related to influenza A infection, improving. 2. Evidence of cardiomyopathy, could be related to the infection. 3. Hypertension. 4. Morbid obesity. RECOMMENDATION: From the cardiac standpoint, I will continue on the present therapy. I will add a low- dose of a beta lyle. I will also add hydrochlorothiazide to optimize his blood pressure and depending on his progress, further recommendation will be made. MMODL / IJN: [id number] /
--- NOTE | 2018-08-07 11:24 | P.PN ---
Subjective Progress Note Date: 08/07/18 Principal diagnosis: Acute hypoxic respiratory failure secondary to Acute influenza pneumonia , and secondary to congestive heart failure which is secondary to mild systolic dysfunction. A morbidly obese 28-year-old male patient, essentially negative past medical history, came into the hospital because of progressive shortness of breath and acute hypoxic respiratory failure. This afternoon, the patient was getting worse in terms of his pulmonary status and hypoxemia. He was on high flow oxygen 10 L per minute nasal cannula. He was still desaturating. Was tachypneic and in significant respiratory distress. Based on that he got moved to the intensive care unit where he was placed on a BiPAP at a pressure of 12/5 cm of water with an FiO2 of 60%. His pulse ox currently is at 92%. Feeling slightly better. Very much BiPAP dependent. His minute ventilation at this point is somewhat between 18-20 L. He is able to tolerate a full face mask without any major difficulties. Note that the patient was having episodes of fever. His most recent temperature was 100.0. He was checked for influenza A and boot turner to be positive. He also has a component of rhabdomyolysis with elevated CPK levels. Echo of the heart was done and showed also impairment of LV function with an ejection fraction of 40-45%. No segmental wall motion abnormalities. Pulmonary artery pressures are not elevated. Since he came to the ICU, the patient received a dose of Lasix and following that he diureses around 1500 mL of urine output. His blood gases while on the BiPAP showed a pH of 7.34 with a pCO2 of 50 and pO2 of 76 with an FiO2 of 60%. The patient's blood culture showed positive gram-positive cocci and gram-negative bacilli and this is one set out of 2 and probably contaminant. Antibiotic coverage was modified and the patient is currently on a combination of cefepime and Zithromax and the patient was given a dose of vancomycin. The patient was also placed on Tamiflu on IV Solu-Medrol. Lactic acid level is at 2.4. Troponins are minimally elevated at 0.1 and 0.07. BNP level is around 5000. On 08/07/2018, patient remains in the ICU, remains on high flow nasal cannula, desaturates very easily with any movement. Or any activity. Patient is steadily improving according to the nurses taking care of the patient, at one point he was about to be intubated, but he did well with BiPAP, and intermittently on high flow nasal cannula. Patient obviously is responding to diuretics, antibiotics, and Tamiflu. Remains on bronchodilators, remains on IV Solu-Medrol, chest x-ray continues to show evidence of bilateral interstitial edema hence I placed the patient back on diuretics, and resume his antibiotics including cefepime and vancomycin. Patient continues to have blood-tinged sputum. Sputum cultures are nondiagnostic. The blood cultures are negative except for contamination Objective - Vital Signs Vital signs: Vital Signs Temp 97.8 F 08/07/18 08:00 Pulse 53 L 08/07/18 11:00 Resp 19 08/07/18 11:00 BP 168/115 08/07/18 11:00 Pulse Ox 95 08/07/18 10:00 Intake & Output 08/06/18 08/07/18 08/07/18 18:59 06:59 18:59 Intake Total 2268 1450 1051 Output Total 1300 1070 1925 Balance 968 380 -874 Weight 126.4 kg Intake: IV 1868 1450 801 Cefepime 1 gm In Sodium 100 50 50 Chloride 0.9% 50 ml @ 100 mls/hr IVPB Q12HR [facility] Rx #:[id number] Sodium Chloride 0.9% 1, 1100 1150 250 000 ml @ 100 mls/hr IV . Q10H [facility] Rx#:[id number] Vancomycin 2,500 mg In 668 250 501 Sodium Chloride 0.9% 500 ml 500 ml @ 167 mls/hr IVPB Q12H [facility] Rx#: [id number] Oral 400 250 Output: Urine 1300 1070 1925 Other: Voiding Method Indwelling Catheter Indwelling Catheter Indwelling Catheter - Exam Physical Exam: Revealed a 48-year-old obese white male, on high flow nasal cannula, in no distress. Head: Atraumatic, normocephalic. HEENT:[Neck is supple.] [No neck masses.] [No thyromegaly.] [No JVD.] PERRLA, EOMI, moist mucous membranes noted. Chest: [Minimal fine crackles and rhonchi at the bases, no wheezes. Symmetrical chest expansion noted. No chest wall tenderness..] Cardiac Exam: Distant S1 and S2, , no S3 gallop, no murmur.] Abdomen: [Soft, nontender, no megaly, no rebound, no guarding, normal bowel sounds.] Extremities: [No clubbing, no edema, no cyanosis.] Neurological Exam: [No focal neurologic deficit.] Psychiatric: Normal mood, affect and mental status examination. Skin: No rashes. Lymphatics: No lymphadenopathy. - Labs CBC & Chem 7: 08/07/18 04:55 08/07/18 04:55 Labs: Abnormal Lab Results - Last 24 Hours (Table) 08/06/18 08/06/18 08/06/18 Range/Units 11:36 17:15 20:43 RBC (4.30-5.90) m/uL Hgb (13.0-17.5) gm/dL Hct (39.0-53.0) % Plt Count (150-450) k/uL Chloride (98-107) mmol/L BUN (9-20) mg/dL Creatinine (0.66-1.25) mg/dL Glucose (74-99) mg/dL POC Glucose (mg/dL) 175 H 246 H 140 H (75-99) mg/dL Calcium (8.4-10.2) mg/dL 08/07/18 08/07/18 08/07/18 Range/Units 04:55 04:55 07:01 RBC 3.95 L (4.30-5.90) m/uL Hgb 11.2 L (13.0-17.5) gm/dL Hct 34.6 L (39.0-53.0) % Plt Count 149 L (150-450) k/uL Chloride 115 H (98-107) mmol/L BUN 25 H (9-20) mg/dL Creatinine 0.64 L (0.66-1.25) mg/dL Glucose 115 H (74-99) mg/dL POC Glucose (mg/dL) 120 H (75-99) mg/dL Calcium 6.0 L* (8.4-10.2) mg/dL Microbiology - Last 24 Hours (Table) 08/02/18 16:23 Blood Culture - Preliminary Blood No Growth after 96 hours 08/02/18 16:34 Blood Culture - Preliminary Blood No Growth after 96 hours Assessment and Plan Assessment: Impression: 1 acute hypoxic respiratory failure secondary to acute influenza pneumonia and acute systolic congestive heart failure. 2 acute rhabdomyolysis, improving. 3 mild lactic acidosis on presentation, resolved. 4 positive blood cultures, contamination is suspected since it came back positive for coagulase-negative staph. 5 mild systolic dysfunction and congestive heart failure is strongly suspected. Ejection fraction is 40-45%. 6 morbid obesity, BMI of 63. Recommendation: Continue high flow oxygen, titrate according to O2 saturation, maintained above 90%. Continue Tamiflu for a total of 5 days, continue bronchodilators, antibiotics, steroids, we will continue to monitor in the ICU for the next 24 hours. Prognosis remains guarded, resume diuresis today after reviewing his chest x-ray. Time with Patient: Less than 30
[2018-08-07 11:33] LABS: Glucose,Whole Blood 129 mg/dL (75-99)
--- NOTE | 2018-08-07 16:39 | P.PN ---
Subjective Progress Note Date: 08/07/18 Principal diagnosis: shortness of breath Patient is a 28-year-old male with a past medical history of morbid obesity, family history of coronary artery disease and congestive heart failure who presented to the ER with complaints of shortness of breath and chest tightness. In the ER he underwent extensive testing. He was found to have influenza A, elevated troponin, elevated creatinine kinase, and EKG showing poor R-wave progression and T-wave inversion. He was in his given a dose of Tamiflu, and started on Rocephin and Zithromax. There was concern for influenza A with superimposed pneumonia and possible myocarditis. He was subsequently admitted to the cardiac unit and cardiology was consulted. Serial troponins remained elevated. His CPK downtrend and slightly after IV fluids. Echocardiogram was completed which showed an ejection fraction of 40-45%. Patient became acutely more dyspneic with increasing oxygen requirements and was subsequently admitted to the ICU. Pulmonary was consulted. Patient was placed on BiPAP due to hypercapnic hypoxic respiratory failure. He was started on Lasix and did have good urine output. He has slightly elevated lactic acid however he did not receive a bolus secondary to his respiratory difficulties. Initial blood culture came back with gram-positive and gram negatives, likely contaminant however in light of his worsening respiratory status his antibiotics were broadened to vancomycin, cefepime, and Zithromax. He initially was started on metoprolol but this was held secondary to bradycardia. He required BiPAP through the morning of 08/05. His zithromax was stopped on 08/05. He continued to require high flow with frequent desaturations on 08/07 with any movements. Patient seen and examined at bedside. Still feeling tired and short of breath. No nausea, no diarrhea, very fatigued and winded easily. Objective - Vital Signs Vital signs: Vital Signs Temp 98.2 F 08/07/18 12:00 Pulse 61 08/07/18 14:00 Resp 19 08/07/18 14:00 BP 178/106 08/07/18 14:00 Pulse Ox 97 08/07/18 14:00 Intake & Output 08/06/18 08/07/18 08/07/18 18:59 06:59 18:59 Intake Total 2268 1450 1618 Output Total 1300 1070 3775 Balance 968 380 -2157 Weight 126.4 kg Intake: IV 1868 1450 1118 Cefepime 1 gm In Sodium 100 50 50 Chloride 0.9% 50 ml @ 100 mls/hr IVPB Q12HR [facility] Rx #:[id number] Sodium Chloride 0.9% 1, 1100 1150 400 000 ml @ 100 mls/hr IV . Q10H [facility] Rx#:[id number] Vancomycin 2,500 mg In 668 250 668 Sodium Chloride 0.9% 500 ml 500 ml @ 167 mls/hr IVPB Q12H [facility] Rx#: [id number] Oral 400 500 Output: Urine 1300 1070 3775 Other: Voiding Method Indwelling Catheter Indwelling Catheter Indwelling Catheter - Exam General: Ill appearing, mild distress, obese, appears at stated age Derm: warm, dry Head: atraumatic, normocephalic, symmetric Eyes: EOMI, no lid lag, anicteric sclera Mouth: no lip lesion, mucus membranes moist Cardiovascular: S1S2 reg, no murmur, positive posterior tibial pulse bilateral, Lungs: Rhonchi bilateral, + accessory muscle use, on high flow Abdominal: soft, nontender to palpation, no guarding, no appreciable organomegaly Ext: no gross muscle atrophy, 1+ edema, no contractures Neuro: CN II-XI grossly intact, no focal neuro deficits Psych: Alert, oriented, appropriate affect - Labs CBC & Chem 7: 08/07/18 04:55 08/07/18 14:18 Labs: Abnormal Lab Results - Last 24 Hours (Table) 08/06/18 08/06/18 08/07/18 Range/Units 17:15 20:43 04:55 RBC (4.30-5.90) m/uL Hgb (13.0-17.5) gm/dL Hct (39.0-53.0) % Plt Count (150-450) k/uL Chloride 115 H (98-107) mmol/L BUN 25 H (9-20) mg/dL Creatinine 0.64 L (0.66-1.25) mg/dL Glucose 115 H (74-99) mg/dL POC Glucose (mg/dL) 246 H 140 H (75-99) mg/dL Calcium 6.0 L* (8.4-10.2) mg/dL 08/07/18 08/07/18 08/07/18 Range/Units 04:55 07:01 11:31 RBC 3.95 L (4.30-5.90) m/uL Hgb 11.2 L (13.0-17.5) gm/dL Hct 34.6 L (39.0-53.0) % Plt Count 149 L (150-450) k/uL Chloride (98-107) mmol/L BUN (9-20) mg/dL Creatinine (0.66-1.25) mg/dL Glucose (74-99) mg/dL POC Glucose (mg/dL) 120 H 129 H (75-99) mg/dL Calcium (8.4-10.2) mg/dL Microbiology - Last 24 Hours (Table) 08/01/18 16:11 Blood Culture Gram Stain - Final Blood Blood Culture - Final Coagulase Negative Staph Coagulase Negative Staph#2 08/02/18 16:23 Blood Culture - Preliminary Blood No Growth after 96 hours 08/02/18 16:34 Blood Culture - Preliminary Blood No Growth after 96 hours Assessment and Plan Assessment: Pneumonia, probable post-influenza along with influenza A with sepsis as evidenced by tachycardia and tachypnea on arrival -Continue with cefepime, Vanco D # /. - Tamiflu completed -Follow chest x-ray until clear -Pulmonary hygiene -Sputum culture with normal respiratory sasha, blood culture negative. -DuoNeb -Pulmonary recommendations: Resume Lasix today ARDS - PAo2 to FiO2 ratio of 141 and bilateral infilatrates - treatment with ABX, pulm hygeine, limit fluids, follow CXR Acute hypoxic/hypercapnic respiratory failure -Bronchodilators, steroids, and antibiotics as listed above -off bipap 08/05 -Pulmonary recommendations New-onset systolic cardiomyopathy with ejection fraction 40-45% -Patient not tolerate metoprolol secondary to hypotension/ bradycardia and this was stopped -On lisinopril, Coreg started 08/07 did not tolerate metoprolol with bradycardia , being diuresed with Lasix -Cardiology recommendations appreciated, will need ischemic evaluation after stabilization of acute illness, likely in outpatient setting with Dr. Hugo - outpatient sleep study and repeat echo Elevated troponin, probable nonischemic etiology could be secondary to hypoxemia , viral infection, or sepsis less like ischemic etiology -Cardiology recommendations appreciated. Ischemic evaluation planned as outpatient Morbid obesity with BMI 63 -Structured outpatient weight loss Hyponatremia secondary to dehydration, resolved Elevated lactic acid Mild rhabdomyolysis, improved Positive d-dimer Will need PCP, sleep study, cardio follow-up and pulm follow up on discharge. If needs home O2 on discharge will need to be off work, has short-term disability. CHeck to see if Dr. Santos accepting new patients. DVT prophylaxis: Lovenox Discussed with: Patient,nursing Anticipated discharge: 2-[address]: Home A total of 35 minutes was spent on the care of this complex patient more than 50 % of the time was spent in counseling and care coordination.
[2018-08-07] MEDS: VANCOMYCIN 2,000 MG in SODIUM CHLORIDE 0.9% 500 ML 500 ML IVPB SCH (16:51)
[2018-08-07 17:03] LABS: Glucose,Whole Blood 175 mg/dL (75-99)
[2018-08-07] MEDS ORDERED: hydrALAZINE HCL 50 MG TAB PO STA (18:13)
[2018-08-07 20:29] LABS: Glucose,Whole Blood 159 mg/dL (75-99)
[2018-08-07] MEDS: hydrALAZINE HCL 50 MG TAB PO SCH (20:29)
[2018-08-08] MEDS: VANCOMYCIN 2,000 MG in SODIUM CHLORIDE 0.9% 500 ML 500 ML IVPB SCH ×2 (00:36→09:45)
[2018-08-08 05:42] LABS: Anion Gap 2 mmol/L; Blood Urea Nitrogen 31 mg/dL (9-20); Calcium 8.1 mg/dL (8.4-10.2); Carbon Dioxide 34 mmol/L (22-30); Chloride 101 mmol/L (98-107); Glucose 142 mg/dL (74-99); Potassium 5.5 mmol/L (3.5-5.1); Sodium 137 mmol/L (137-145)
[2018-08-08] MEDS: hydrALAZINE HCL 50 MG TAB PO SCH ×3 (06:12→21:09)
[2018-08-08 07:17] LABS: Glucose,Whole Blood 112 mg/dL (75-99)
[2018-08-08 07:19] LABS: Basophils % (A) 0 %; Eosinophils % (A) 0 %; HCT 42.5 % (39.0-53.0); HGB 13.9 gm/dL (13.0-17.5); Lymphocytes # (A) 0.7 k/uL (1.0-4.8); Lymphocytes % (A) 7 %; MCH 28.5 pg (25.0-35.0); MCHC 32.7 g/dL (31.0-37.0); Mean Platelet Volume 7.4; Monocytes # (A) 0.9 k/uL (0-1.0); Monocytes % (A) 10 %; Neutrophils # (A) 7.1 k/uL (1.3-7.7); Neutrophils % (A) 81 %; Platelet Count 254 k/uL (150-450); RBC 4.88 m/uL (4.30-5.90); RDW 13.4 % (11.5-15.5); WBC 8.8 k/uL (3.8-10.6)
[2018-08-08] MEDS: PANTOPRAZOLE 40 MG TABLET PO SCH (07:19)
[2018-08-08] MEDS: INSULIN ASPART 100 UNIT/ML 1 ML 10 ML VIAL SQ SCH ×4 (07:19→20:11)
--- NOTE | 2018-08-08 08:52 | PN ---
PROGRESS NOTE Mr. Bertrand is a 28-year-old male who presented with respiratory failure related to influenza A infection. He is feeling better this morning. He seems to be stronger. He is denying any symptoms of chest pain. He denies any dizziness. He continues to have episode of hypertension. He has not been ambulating as of yet. His urine output has been good. He continues to be, at this time on carvedilol 3.125 mg twice a day, aspirin once a day, hydralazine 100 mg 3 times a day, lisinopril 20 mg twice a day, and Lasix 40 mg IV q.12 hours. PHYSICAL EXAMINATION: Blood pressure 154/90 with a heart in 50s. LUNGS: Clear. HEART: Regular rate and rhythm. S1, S2. No S3. No rub appreciated. ABDOMEN: Soft, obese, nontender. EXTREMITIES: +1 edema. LAB DATA: Revealed BUN and creatinine 31 and 0.95, potassium of 5.5. Hemoglobin is 13.9. IMPRESSION: 1. Influenza A respiratory failure, improving. 2. Episode of congestive heart failure with ejection fraction of 45%, most likely related to an infectious process. 3. Hypertension. 4. Obesity. RECOMMENDATION: I will continue present therapy. I will add to his regimen hydrochlorothiazide 25 mg daily. Continue rest of his medical regimen. Follow his renal function. I will increase his level of activity. Patient should be able to start to ambulate. Depending on his progress, further recommendation will be made. MMODL / VANDANAN: [id number] /
[2018-08-08] MEDS: CARVEDILOL 3.125 MG TAB PO SCH ×3 (09:40→16:36)
[2018-08-08] MEDS: FUROSEMIDE 10 MG/ML 4 ML VIAL IV SCH ×2 (09:40→09:47)
[2018-08-08] MEDS: CEFEPIME 1 GM in SODIUM CHLORIDE 0.9% 50 ML IVPB SCH ×2 (09:45→20:11)
[2018-08-08] MEDS: methylPREDNISolone SOD SUCCI 125 MG/2 ML VIAL IV SCH (09:46)
[2018-08-08] MEDS: LISINOPRIL 20 MG TAB PO SCH ×2 (09:46→20:11)
[2018-08-08] MEDS: ENOXAPARIN 40 MG/0.4 ML SYRINGE SQ SCH (09:47)
[2018-08-08] MEDS: ASPIRIN 81 MG PO SCH (09:47)
[2018-08-08] MEDS: HYDROCHLOROTHIAZIDE 25 MG TAB PO SCH (09:47)
[2018-08-08] MEDS ORDERED: FUROSEMIDE 10 MG/ML 4 ML VIAL IV STA (10:30)
[2018-08-08] MEDS: SODIUM CHLORIDE 0.9% 500 ML 500 ML IV SCH (10:34)
[2018-08-08 10:42] VITALS: BMI 69.9
[2018-08-08 11:18] LABS: Glucose,Whole Blood 114 mg/dL (75-99)
[2018-08-08] MEDS ORDERED: ACETAMINOPHEN TAB 325 MG TAB PO PRN (11:31)
--- NOTE | 2018-08-08 11:43 | P.PN ---
Subjective Progress Note Date: 08/08/18 Principal diagnosis: Acute hypoxic respiratory failure Patient is a 28-year-old male with a past medical history of morbid obesity, family history of coronary artery disease and congestive heart failure who presented to the ER with complaints of shortness of breath and chest tightness. In the ER he underwent extensive testing. He was found to have influenza A, elevated troponin, elevated creatinine kinase, and EKG showing poor R-wave progression and T-wave inversion. He was in his given a dose of Tamiflu, and started on Rocephin and Zithromax. There was concern for influenza A with superimposed pneumonia and possible myocarditis. He was subsequently admitted to the cardiac unit and cardiology was consulted. Serial troponins remained elevated. His CPK downtrend and slightly after IV fluids. Echocardiogram was completed which showed an ejection fraction of 40-45%. Patient became acutely more dyspneic with increasing oxygen requirements and was subsequently admitted to the ICU. Pulmonary was consulted. Patient was placed on BiPAP due to hypercapnic hypoxic respiratory failure. He was started on Lasix and did have good urine output. Objective - Vital Signs Vital signs: Vital Signs Temp 97.5 F L 08/08/18 09:30 Pulse 54 L 08/08/18 11:00 Resp 20 08/08/18 11:00 BP 132/84 08/08/18 11:00 Pulse Ox 93 L 08/08/18 11:00 Intake & Output 08/07/18 08/08/18 08/08/18 18:59 06:59 18:59 Intake Total 2452 1650 745 Output Total 4778 0140 885 Balance -2323 -3050 -140 Weight 240.3 kg 240.3 kg Intake: IV 1702 1050 745 Cefepime 1 gm In Sodium 50 50 Chloride 0.9% 50 ml @ 100 mls/hr IVPB Q12HR [facility] Rx #:[id number] Sodium Chloride 0.9% 1, 650 550 195 000 ml @ 100 mls/hr IV . Q10H [facility] Rx#:[id number] Vancomycin 2,000 mg In 500 Sodium Chloride 0.9% 500 ml 500 ml @ 167 mls/hr IVPB Q8HR [facility] Rx#: [id number] Vancomycin 2,500 mg In 1002 500 Sodium Chloride 0.9% 500 ml 500 ml @ 167 mls/hr IVPB Q12H [facility] Rx#: [id number] Oral 750 600 Output: Urine 4738 7405 985 Other: Voiding Method Indwelling Catheter Indwelling Catheter Indwelling Catheter - Exam General: The patient is awake and alert, in no distress, and does not appear acutely ill. He is morbidly obese Eye: extra-ocular movements are intact; there is normal conjunctiva bilaterally. . Cardiovascular: Heart sounds are distant. Normal S1-S2, no S3-S4, no murmurs. Respiratory: Lungs clear to auscultation bilaterally with no wheezes rhonchi or rales. Gastrointestinal: Abdomen is obese, soft, nontender, Musculoskeletal: There is +1 pedal edema. Neurological: There are no obvious motor or sensory deficits. Speech is normal. Skin: Skin is warm and dry and no rashes or lesions are noted. - Labs CBC & Chem 7: 08/08/18 05:20 08/08/18 05:20 Labs: Abnormal Lab Results - Last 24 Hours (Table) 08/07/18 08/07/18 08/07/18 Range/Units 11:31 17:02 20:28 Lymphocytes # (1.0-4.8) k/uL Potassium (3.5-5.1) mmol/L Carbon Dioxide (22-30) mmol/L BUN (9-20) mg/dL Glucose (74-99) mg/dL POC Glucose (mg/dL) 129 H 175 H 159 H (75-99) mg/dL Calcium (8.4-10.2) mg/dL 08/08/18 08/08/18 08/08/18 Range/Units 05:20 05:20 07:16 Lymphocytes # 0.7 L (1.0-4.8) k/uL Potassium 5.5 H (3.5-5.1) mmol/L Carbon Dioxide 34 H (22-30) mmol/L BUN 31 H (9-20) mg/dL Glucose 142 H (74-99) mg/dL POC Glucose (mg/dL) 112 H (75-99) mg/dL Calcium 8.1 L (8.4-10.2) mg/dL 08/08/18 Range/Units 11:16 Lymphocytes # (1.0-4.8) k/uL Potassium (3.5-5.1) mmol/L Carbon Dioxide (22-30) mmol/L BUN (9-20) mg/dL Glucose (74-99) mg/dL POC Glucose (mg/dL) 114 H (75-99) mg/dL Calcium (8.4-10.2) mg/dL Microbiology - Last 24 Hours (Table) 08/02/18 16:23 Blood Culture - Preliminary Blood No Growth after 120 hours 08/02/18 16:34 Blood Culture - Preliminary Blood No Growth after 120 hours 08/01/18 16:11 Blood Culture Gram Stain - Final Blood Blood Culture - Final Coagulase Negative Staph Coagulase Negative Staph#2 Assessment and Plan Assessment: Pneumonia, probable post-influenza along with influenza A with sepsis as evidenced by tachycardia and tachypnea on arrival -Continue with cefepime, Vanco D # /. - Tamiflu completed -Follow chest x-ray until clear -Pulmonary hygiene -Sputum culture with normal respiratory sasha, blood culture negative. -DuoNeb -Pulmonary recommendations appreciated ARDS - PAo2 to FiO2 ratio of 141 and bilateral infilatrates - treatment with ABX, pulm hygeine, limit fluids, follow CXR Acute hypoxic/hypercapnic respiratory failure -Bronchodilators, steroids, and antibiotics as listed above -off bipap 08/05 New-onset systolic cardiomyopathy with ejection fraction 40-45% -Patient not tolerate metoprolol secondary to hypotension/ bradycardia and this was stopped -On lisinopril, Coreg started 08/07 -Cardiology recommendations appreciated, will need ischemic evaluation after stabilization of acute illness, likely in outpatient setting with Dr. Hugo - outpatient sleep study and repeat echo Elevated troponin, probable nonischemic etiology could be secondary to hypoxemia , viral infection, or sepsis less like ischemic etiology Morbid obesity with BMI 63 -Structured outpatient weight loss Obesity hypoventilation syndrome Plan for today: - Discontinue Everett catheter -Wean off O2 as tolerated for O2 sats greater than 90% - Switch steroids to oral prednisone - Repeat lab work in the morning Will need PCP, sleep study, cardio follow-up and pulm follow up on discharge. If needs home O2 on discharge will need to be off work, has short-term disability. CHeck to see if Dr. Santos accepting new patients. DVT prophylaxis: Lovenox Discussed with: Patient, nursing Anticipated discharge: 2-[address]: Home A total of 35 minutes was spent on the care of this complex patient more than 50 % of the time was spent in counseling and care coordination.
--- NOTE | 2018-08-08 11:56 | P.PN ---
Subjective Progress Note Date: 08/08/18 Principal diagnosis: Acute hypoxic respiratory failure secondary to Acute influenza pneumonia , and secondary to congestive heart failure which is secondary to mild systolic dysfunction. A morbidly obese 28-year-old male patient, essentially negative past medical history, came into the hospital because of progressive shortness of breath and acute hypoxic respiratory failure. This afternoon, the patient was getting worse in terms of his pulmonary status and hypoxemia. He was on high flow oxygen 10 L per minute nasal cannula. He was still desaturating. Was tachypneic and in significant respiratory distress. Based on that he got moved to the intensive care unit where he was placed on a BiPAP at a pressure of 12/5 cm of water with an FiO2 of 60%. His pulse ox currently is at 92%. Feeling slightly better. Very much BiPAP dependent. His minute ventilation at this point is somewhat between 18-20 L. He is able to tolerate a full face mask without any major difficulties. Note that the patient was having episodes of fever. His most recent temperature was 100.0. He was checked for influenza A and hose turner to be positive. He also has a component of rhabdomyolysis with elevated CPK levels. Echo of the heart was done and showed also impairment of LV function with an ejection fraction of 40-45%. No segmental wall motion abnormalities. Pulmonary artery pressures are not elevated. Since he came to the ICU, the patient received a dose of Lasix and following that he diureses around 1500 mL of urine output. His blood gases while on the BiPAP showed a pH of 7.34 with a pCO2 of 50 and pO2 of 76 with an FiO2 of 60%. The patient's blood culture showed positive gram-positive cocci and gram-negative bacilli and this is one set out of 2 and probably contaminant. Antibiotic coverage was modified and the patient is currently on a combination of cefepime and Zithromax and the patient was given a dose of vancomycin. The patient was also placed on Tamiflu on IV Solu-Medrol. Lactic acid level is at 2.4. Troponins are minimally elevated at 0.1 and 0.07. BNP level is around 5000. On 08/07/2018, patient remains in the ICU, remains on high flow nasal cannula, desaturates very easily with any movement. Or any activity. Patient is steadily improving according to the nurses taking care of the patient, at one point he was about to be intubated, but he did well with BiPAP, and intermittently on high flow nasal cannula. Patient obviously is responding to diuretics, antibiotics, and Tamiflu. Remains on bronchodilators, remains on IV Solu-Medrol, chest x-ray continues to show evidence of bilateral interstitial edema hence I placed the patient back on diuretics, and resume his antibiotics including cefepime and vancomycin. Patient continues to have blood-tinged sputum. Sputum cultures are nondiagnostic. The blood cultures are negative except for contamination Patient was evaluated today on , he is doing much better, breathing a lot easier. He is on 6 L high flow nasal cannula, saturating well, and feels clinically much better compared to yesterday. Chest x-ray in T showed significant improvement in his interstitial edema. All his labs were reviewed, all his medications were reviewed, we plan to continue antibiotics, and I plan to transfer the patient out of the ICU to a medical floor/monitored bed. Objective - Vital Signs Vital signs: Vital Signs Temp 97.5 F L 08/08/18 09:30 Pulse 73 08/08/18 11:30 Resp 15 08/08/18 11:30 BP 130/79 08/08/18 11:20 Pulse Ox 94 L 08/08/18 11:30 Intake & Output 08/07/18 08/08/18 08/08/18 18:59 06:59 18:59 Intake Total 2452 1650 745 Output Total 4775 4700 885 Balance -2323 -3050 -140 Weight 240.3 kg 240.3 kg Intake: IV 1702 1050 745 Cefepime 1 gm In Sodium 50 50 Chloride 0.9% 50 ml @ 100 mls/hr IVPB Q12HR [facility] Rx #:[id number] Sodium Chloride 0.9% 1, 650 550 195 000 ml @ 100 mls/hr IV . Q10H [facility] Rx#:[id number] Vancomycin 2,000 mg In 500 Sodium Chloride 0.9% 500 ml 500 ml @ 167 mls/hr IVPB Q8HR [facility] Rx#: [id number] Vancomycin 2,500 mg In 1002 500 Sodium Chloride 0.9% 500 ml 500 ml @ 167 mls/hr IVPB Q12H [facility] Rx#: [id number] Oral 750 600 Output: Urine 4775 4700 885 Other: Voiding Method Indwelling Catheter Indwelling Catheter Indwelling Catheter - Exam Physical Exam: Revealed a 48-year-old obese white male, in no distress. HEENT:[Neck is supple.] [No neck masses.] [No thyromegaly.] [No JVD.] PERRLA, EOMI, moist mucous membranes noted. Chest: [Symmetrical expansion, clear breath sound bilaterally no rhonchi and no wheezes. Cardiac Exam: Distant S1 and S2, , no S3 gallop, no murmur.] Abdomen: [Soft, nontender, no megaly, no rebound, no guarding, normal bowel sounds.] Extremities: [No clubbing, no edema, no cyanosis.] Neurological Exam: [No focal neurologic deficit.] Psychiatric: Normal mood, affect and mental status examination. Lymphatics: No lymphadenopathy. Skin: No erythema, no rashes noted. - Labs CBC & Chem 7: 08/08/18 05:20 08/08/18 05:20 Labs: Abnormal Lab Results - Last 24 Hours (Table) 08/07/18 08/07/18 08/08/18 Range/Units 17:02 20:28 05:20 Lymphocytes # (1.0-4.8) k/uL Potassium 5.5 H (3.5-5.1) mmol/L Carbon Dioxide 34 H (22-30) mmol/L BUN 31 H (9-20) mg/dL Glucose 142 H (74-99) mg/dL POC Glucose (mg/dL) 175 H 159 H (75-99) mg/dL Calcium 8.1 L (8.4-10.2) mg/dL 08/08/18 08/08/18 08/08/18 Range/Units 05:20 07:16 11:16 Lymphocytes # 0.7 L (1.0-4.8) k/uL Potassium (3.5-5.1) mmol/L Carbon Dioxide (22-30) mmol/L BUN (9-20) mg/dL Glucose (74-99) mg/dL POC Glucose (mg/dL) 112 H 114 H (75-99) mg/dL Calcium (8.4-10.2) mg/dL Microbiology - Last 24 Hours (Table) 08/02/18 16:23 Blood Culture - Preliminary Blood No Growth after 120 hours 08/02/18 16:34 Blood Culture - Preliminary Blood No Growth after 120 hours 08/01/18 16:11 Blood Culture Gram Stain - Final Blood Blood Culture - Final Coagulase Negative Staph Coagulase Negative Staph#2 Assessment and Plan Assessment: Impression: 1 acute hypoxic respiratory failure secondary to acute influenza pneumonia and acute systolic congestive heart failure. 2 acute rhabdomyolysis, improving. 3 mild lactic acidosis on presentation, resolved. 4 positive blood cultures, contamination is suspected since it came back positive for coagulase-negative staph. 5 mild systolic dysfunction and congestive heart failure is strongly suspected. Ejection fraction is 40-45%. 6 morbid obesity, BMI of 63. Recommendation: Continue high flow oxygen, titrate according to O2 saturation, maintained above 90%. Will transfer the patient out of the ICU to a monitor bed on selective, continue antibiotics, consider discharge planning in the next couple of days. We'll discuss with cardiology whether further cardiac workup is necessary. Chest x-ray today showed dramatic improvement compared to the last few days. Again this is most likely consistent with pulmonary edema rather than pneumonia although underlying pneumonia was not entirely ruled out. Time with Patient: Less than 30
--- NOTE | 2018-08-08 12:36 | XR ---
EXAMINATION TYPE: XR chest 1V portable DATE OF EXAM: 08/08/2018 COMPARISON: Prior chest x-ray 08/07/2018 HISTORY: Congestive heart failure TECHNIQUE: Single frontal view of the chest is obtained. FINDINGS: Bilateral airspace disease may be improved somewhat in the interval. Left-sided PICC line shows the distal tip overlying the left subclavian vein. There is no evident pneumothorax or pleural effusion. Patient is rotated, heart is enlarged. There are overlying cardiac leads. Lung lines are lo w. IMPRESSION: Suspect some improvement in patient's airspace disease. Additional follow-up recommended .
[2018-08-08] MEDS: VANCOMYCIN 2,500 MG in SODIUM CHLORIDE 0.9% 500 ML 500 ML IVPB SCH (16:30)
[2018-08-08 17:11] LABS: Glucose,Whole Blood 125 mg/dL (75-99)
[2018-08-08 20:09] LABS: Glucose,Whole Blood 141 mg/dL (75-99)
[2018-08-09] MEDS: VANCOMYCIN 2,500 MG in SODIUM CHLORIDE 0.9% 500 ML 500 ML IVPB SCH ×2 (00:15→07:42)
[2018-08-09 06:27] LABS: Anion Gap 1 mmol/L; Blood Urea Nitrogen 31 mg/dL (9-20); Calcium 8.2 mg/dL (8.4-10.2); Carbon Dioxide 36 mmol/L (22-30); Chloride 100 mmol/L (98-107); Glucose 89 mg/dL (74-99); Sodium 137 mmol/L (137-145)
[2018-08-09] MEDS ORDERED: VANCOMYCIN TROUGH DUE 1 EACH MISC MISCELLANE ONE (07:00)
[2018-08-09] MEDS: INSULIN ASPART 100 UNIT/ML 1 ML 10 ML VIAL SQ SCH ×4 (07:21→20:25)
[2018-08-09] MEDS: CARVEDILOL 3.125 MG TAB PO SCH ×2 (07:25→19:24)
[2018-08-09] MEDS: PANTOPRAZOLE 40 MG TABLET PO SCH (07:25)
[2018-08-09 07:51] LABS: Glucose,Whole Blood 111 mg/dL (75-99)
[2018-08-09] MEDS ORDERED: predniSONE 20 MG TAB PO SCH (09:00)
[2018-08-09] MEDS ORDERED: FUROSEMIDE 10 MG/ML 4 ML VIAL IV SCH (09:00)
--- NOTE | 2018-08-09 09:20 | PN ---
PROGRESS NOTE Mr. Bertrand is a 28-year-old male who presented was respiratory failure related to influenza A infection. He is feeling much better today. He is more active. He is walked in the room. He is sitting up in the chair. Hemodynamically stable. His blood pressure has been stable. He had mild impairment of the left ventricular systolic function. Otherwise, he is doing well. Hemodynamically, he is under better control. He continues to be on Coreg 3.125 mg twice a day, aspirin once a day, furosemide 40 mg IV daily, hydralazine 100 mg 3 times a day, lisinopril 20 mg twice a day, and hydrochlorothiazide 25 mg daily. PHYSICAL EXAMINATION: Blood pressure running in the 130s/70 with a heart rate in the 50s. LUNGS: Clear. HEART: Regular rate and rhythm. S1, S2. No S3. No rub. ABDOMEN: Soft, obese, nontender. EXTREMITIES: No significant edema. LAB DATA: Revealed BUN and creatinine 31 and 0.88 with a potassium of 5.0. IMPRESSION: 1. Respiratory failure with influenza A infection, improving. 2. Impaired mild left ventricular systolic function, could be related to the infectious process. 3. Hypertension, under better control. 4. Morbid obesity. RECOMMENDATION: I will switch him to oral diuretic at this time. Continue rest of medical regimen. From the cardiac standpoint, he is stable. Will see him on his as-needed basis. The patient will follow up as an outpatient with Dr. Hugo to see if any further cardiac workup will be needed. Please feel free to call us for any question. MMODL / IJN: [id number] /
--- NOTE | 2018-08-09 09:40 | P.PN ---
Subjective Progress Note Date: 08/09/18 Principal diagnosis: Acute hypoxic respiratory failure Patient is a 28-year-old male with a past medical history of morbid obesity, family history of coronary artery disease and congestive heart failure who presented to the ER with complaints of shortness of breath and chest tightness. In the ER he underwent extensive testing. He was found to have influenza A, elevated troponin, elevated creatinine kinase, and EKG showing poor R-wave progression and T-wave inversion. He was in his given a dose of Tamiflu, and started on Rocephin and Zithromax. There was concern for influenza A with superimposed pneumonia and possible myocarditis. He was subsequently admitted to the cardiac unit and cardiology was consulted. Serial troponins remained elevated. His CPK downtrend and slightly after IV fluids. Echocardiogram was completed which showed an ejection fraction of 40-45%. Patient became acutely more dyspneic with increasing oxygen requirements and was subsequently admitted to the ICU. Pulmonary was consulted. Patient was placed on BiPAP due to hypercapnic hypoxic respiratory failure. He was started on Lasix and did have good urine output. 08/09 patient is doing well this morning. There is no acute events overnight reported by nursing staff. Patient denies any shortness of breath. He is down to 2 L of oxygen via nasal cannula. Repeat chest x-ray showed some improvement yesterday. Objective - Vital Signs Vital signs: Vital Signs Temp 98.0 F 08/09/18 04:00 Pulse 41 L 08/09/18 07:00 Resp 15 08/09/18 07:00 BP 133/74 08/09/18 07:00 Pulse Ox 96 08/09/18 07:00 Intake & Output 08/08/18 08/09/18 08/09/18 18:59 06:59 18:59 Intake Total 1280 770 520 Output Total 2990 1075 Balance -1710 -305 520 Weight 240.3 kg Intake: IV 905 270 520 Cefepime 1 gm In Sodium 50 50 Chloride 0.9% 50 ml @ 100 mls/hr IVPB Q12HR [facility] Rx #:[id number] Sodium Chloride 0.9% 1, 355 220 20 000 ml @ 100 mls/hr IV . Q10H [facility] Rx#:[id number] Vancomycin 2,000 mg In 500 500 Sodium Chloride 0.9% 500 ml 500 ml @ 167 mls/hr IVPB Q8HR [facility] Rx#: [id number] Intake, IV Titration 500 Amount Vancomycin 2,500 mg In 500 Sodium Chloride 0.9% 500 ml 500 ml @ 167 mls/hr IVPB Q8HR [facility] Rx#: [id number] Oral 375 Output: Urine 2990 1075 Other: Voiding Method Indwelling Catheter Urinal - Exam General: The patient is awake and alert, in no distress, and does not appear acutely ill. He is morbidly obese Eye: extra-ocular movements are intact; there is normal conjunctiva bilaterally. . Cardiovascular: Heart sounds are distant. Normal S1-S2, no S3-S4, no murmurs. Respiratory: Lungs clear to auscultation bilaterally with no wheezes rhonchi or rales. Gastrointestinal: Abdomen is obese, soft, nontender, Musculoskeletal: There is +1 pedal edema. Neurological: There are no obvious motor or sensory deficits. Speech is normal. Skin: Skin is warm and dry and no rashes or lesions are noted. - Labs CBC & Chem 7: 08/08/18 05:20 08/09/18 06:03 Labs: Abnormal Lab Results - Last 24 Hours (Table) 08/08/18 08/08/18 08/08/18 Range/Units 11:16 17:09 20:08 Carbon Dioxide (22-30) mmol/L BUN (9-20) mg/dL POC Glucose (mg/dL) 114 H 125 H 141 H (75-99) mg/dL Calcium (8.4-10.2) mg/dL 08/09/18 08/09/18 Range/Units 06:03 07:50 Carbon Dioxide 36 H (22-30) mmol/L BUN 31 H (9-20) mg/dL POC Glucose (mg/dL) 111 H (75-99) mg/dL Calcium 8.2 L (8.4-10.2) mg/dL Microbiology - Last 24 Hours (Table) 08/02/18 16:23 Blood Culture - Final Blood No Growth after 144 hours 08/02/18 16:34 Blood Culture - Final Blood No Growth after 144 hours Assessment and Plan Assessment: Pneumonia, probable post-influenza along with influenza A with sepsis as evidenced by tachycardia and tachypnea on arrival -Continue with cefepime, Vanco Day # 04/15 today. We will discontinue antibiotic - Tamiflu completed 5 days course -Follow chest x-ray -Pulmonary hygiene, add incentive spirometer at bedside to be used at least once an hour -Sputum culture with normal respiratory sasha, blood culture negative. -DuoNeb -Pulmonary recommendations appreciated ARDS - PAo2 to FiO2 ratio of 141 and bilateral infilatrates - treatment with ABX, pulm hygeine, limit fluids, follow CXR Acute hypoxic/hypercapnic respiratory failure -Bronchodilators, steroids, and antibiotics as listed above -off bipap 08/05 New-onset systolic cardiomyopathy with ejection fraction 40-45% -Patient not tolerate metoprolol secondary to hypotension/ bradycardia and this was stopped -On lisinopril, Coreg started 08/07 -Cardiology recommendations appreciated, will need ischemic evaluation after stabilization of acute illness, likely in outpatient setting with Dr. Hugo - outpatient sleep study and repeat echo Elevated troponin, probable nonischemic etiology could be secondary to hypoxemia , viral infection, or sepsis less like ischemic etiology Morbid obesity with BMI 63 -Structured outpatient weight loss Obesity hypoventilation syndrome Plan for today: - Discontinue Everett catheter -Wean off O2 as tolerated for O2 sats greater than 90% - Switch steroids to oral prednisone - Repeat lab work in the morning Will need PCP, sleep study, cardio follow-up and pulm follow up on discharge. If needs home O2 on discharge will need to be off work, has short-term disability. Check to see if Dr. Santos accepting new patients prior to discharge. DVT prophylaxis: Lovenox Discussed with: Patient, nursing Anticipated discharge: 1-[address]: Home
[2018-08-09 12:02] LABS: Glucose,Whole Blood 75 mg/dL (75-99)
[2018-08-09] MEDS: ASPIRIN 81 MG PO SCH (12:20)
[2018-08-09] MEDS: FUROSEMIDE 40 MG TAB PO SCH (12:20)
[2018-08-09] MEDS: ENOXAPARIN 40 MG/0.4 ML SYRINGE SQ SCH (12:20)
[2018-08-09] MEDS: HYDROCHLOROTHIAZIDE 25 MG TAB PO SCH (12:20)
[2018-08-09] MEDS: LISINOPRIL 20 MG TAB PO SCH ×2 (12:20→20:29)
[2018-08-09] MEDS: hydrALAZINE HCL 50 MG TAB PO SCH ×3 (12:20→20:29)
--- NOTE | 2018-08-09 13:01 | P.PN ---
Subjective Progress Note Date: 08/09/18 Principal diagnosis: Acute hypoxic respiratory failure secondary to Acute influenza pneumonia , and secondary to congestive heart failure which is secondary to mild systolic dysfunction. A morbidly obese 28-year-old male patient, essentially negative past medical history, came into the hospital because of progressive shortness of breath and acute hypoxic respiratory failure. This afternoon, the patient was getting worse in terms of his pulmonary status and hypoxemia. He was on high flow oxygen 10 L per minute nasal cannula. He was still desaturating. Was tachypneic and in significant respiratory distress. Based on that he got moved to the intensive care unit where he was placed on a BiPAP at a pressure of 12/5 cm of water with an FiO2 of 60%. His pulse ox currently is at 92%. Feeling slightly better. Very much BiPAP dependent. His minute ventilation at this point is somewhat between 18-20 L. He is able to tolerate a full face mask without any major difficulties. Note that the patient was having episodes of fever. His most recent temperature was 100.0. He was checked for influenza A and turner and former automatic to be positive. He also has a component of rhabdomyolysis with elevated CPK levels. Echo of the heart was done and showed also impairment of LV function with an ejection fraction of 40-45%. No segmental wall motion abnormalities. Pulmonary artery pressures are not elevated. Since he came to the ICU, the patient received a dose of Lasix and following that he diureses around 1500 mL of urine output. His blood gases while on the BiPAP showed a pH of 7.34 with a pCO2 of 50 and pO2 of 76 with an FiO2 of 60%. The patient's blood culture showed positive gram-positive cocci and gram-negative bacilli and this is one set out of 2 and probably contaminant. Antibiotic coverage was modified and the patient is currently on a combination of cefepime and Zithromax and the patient was given a dose of vancomycin. The patient was also placed on Tamiflu on IV Solu-Medrol. Lactic acid level is at 2.4. Troponins are minimally elevated at 0.1 and 0.07. BNP level is around 5000. On 08/07/2018, patient remains in the ICU, remains on high flow nasal cannula, desaturates very easily with any movement. Or any activity. Patient is steadily improving according to the nurses taking care of the patient, at one point he was about to be intubated, but he did well with BiPAP, and intermittently on high flow nasal cannula. Patient obviously is responding to diuretics, antibiotics, and Tamiflu. Remains on bronchodilators, remains on IV Solu-Medrol, chest x-ray continues to show evidence of bilateral interstitial edema hence I placed the patient back on diuretics, and resume his antibiotics including cefepime and vancomycin. Patient continues to have blood-tinged sputum. Sputum cultures are nondiagnostic. The blood cultures are negative except for contamination Patient was evaluated today on 08/08/2018, he is doing much better, breathing a lot easier. He is on 6 L high flow nasal cannula, saturating well, and feels clinically much better compared to yesterday. Chest x-ray in T showed significant improvement in his interstitial edema. All his labs were reviewed, all his medications were reviewed, we plan to continue antibiotics, and I plan to transfer the patient out of the ICU to a medical floor/monitored bed. Patient was reevaluated today on 08/09/2018, feels great, on 2 L nasal cannula, saturating in the mid 90s. Patient apparently made a significant improvement with antibiotics, anti-flu medication, and diuretics. No cough no wheezing no shortness of breath, no chest pain. Today I plan to transfer the patient out of the ICU to a remote/telemetry/ monitor bed on the regular medical floor. All his labs were reviewed, chest x-ray was reviewed from yesterday and looked dramatically improved. Electrolytes are normal. Objective - Vital Signs Vital signs: Vital Signs Temp 98.7 F 08/09/18 08:00 Pulse 51 L 08/09/18 11:00 Resp 15 08/09/18 11:00 BP 137/75 08/09/18 10:00 Pulse Ox 94 L 08/09/18 11:00 Intake & Output 08/08/18 08/09/18 08/09/18 18:59 06:59 18:59 Intake Total 1280 770 600 Output Total 2990 1075 Balance -1710 -305 600 Weight 240.3 kg Intake: IV 905 270 600 Cefepime 1 gm In Sodium 50 50 Chloride 0.9% 50 ml @ 100 mls/hr IVPB Q12HR [facility] Rx #:[id number] Sodium Chloride 0.9% 1, 355 220 40 000 ml @ 100 mls/hr IV . Q10H [facility] Rx#:[id number] Sodium Chloride 0.9% 500 60 ml 500 ml @ 20 mls/hr IV .Q24H [facility] Rx#:[id number] Vancomycin 2,000 mg In 500 500 Sodium Chloride 0.9% 500 ml 500 ml @ 167 mls/hr IVPB Q8HR [facility] Rx#: [id number] Vancomycin 2,500 mg In 0 Sodium Chloride 0.9% 500 ml 500 ml @ 167 mls/hr IVPB Q12H [facility] Rx#: [id number] Intake, IV Titration 500 Amount Vancomycin 2,500 mg In 500 Sodium Chloride 0.9% 500 ml 500 ml @ 167 mls/hr IVPB Q8HR [facility] Rx#: [id number] Oral 375 Output: Urine 2990 1075 Other: Voiding Method Indwelling Catheter Urinal Urinal # Voids 1 - Exam Physical Exam: Revealed a 48-year-old obese white male, in no distress. On 2 L nasal cannula. HEENT:[ Short obese neck, Neck is supple.] [No neck masses.] [No thyromegaly.] [ No JVD.] PERRLA, EOMI, moist mucous membranes noted. Chest: [Symmetrical expansion, clear breath sound bilaterally no rhonchi and no wheezes. Cardiac Exam: Distant S1 and S2, , no S3 gallop, no murmur.] Abdomen: [Soft, nontender, no megaly, no rebound, no guarding, normal bowel sounds.] Extremities: [No clubbing, no edema, no cyanosis.] Neurological Exam: [No focal neurologic deficit.] Psychiatric: Normal mood, affect and mental status examination. Lymphatics: No lymphadenopathy. Skin: No rashes. - Labs CBC & Chem 7: 08/08/18 05:20 08/09/18 06:03 Labs: Abnormal Lab Results - Last 24 Hours (Table) 08/08/18 08/08/18 08/09/18 Range/Units 17:09 20:08 06:03 Carbon Dioxide 36 H (22-30) mmol/L BUN 31 H (9-20) mg/dL POC Glucose (mg/dL) 125 H 141 H (75-99) mg/dL Calcium 8.2 L (8.4-10.2) mg/dL 08/09/18 Range/Units 07:50 Carbon Dioxide (22-30) mmol/L BUN (9-20) mg/dL POC Glucose (mg/dL) 111 H (75-99) mg/dL Calcium (8.4-10.2) mg/dL Microbiology - Last 24 Hours (Table) 08/02/18 16:23 Blood Culture - Final Blood No Growth after 144 hours 08/02/18 16:34 Blood Culture - Final Blood No Growth after 144 hours Assessment and Plan Assessment: Impression: 1 acute hypoxic respiratory failure secondary to acute influenza pneumonia and acute systolic congestive heart failure. 2 acute rhabdomyolysis, improving. 3 mild lactic acidosis on presentation, resolved. 4 positive blood cultures, contamination is suspected since it came back positive for coagulase-negative staph. 5 mild systolic dysfunction and congestive heart failure is strongly suspected. Ejection fraction is 40-45%. 6 morbid obesity, BMI of 63. Recommendation: Continue present supportive care measures including antibiotics , diuretics, the dose of diuretics has been decreased, continue O2 at 2 L nasal cannula, continue cardiac meds, and we will likely transfer the patient out of the ICU to a remote telemetry bed on the medical floor. Possible discharge planning in the next 24-48 hours, and less cardiology is planning further cardiac studies. However that could be addressed on outpatient basis. Time with Patient: Less than 30
[2018-08-09 16:41] LABS: Glucose,Whole Blood 134 mg/dL (75-99)
[2018-08-09] MEDS: CEFEPIME 1 GM in SODIUM CHLORIDE 0.9% 50 ML IVPB SCH (18:28)
[2018-08-09] MEDS: SODIUM CHLORIDE 0.9% 500 ML 500 ML IV SCH (18:31)
[2018-08-09] MEDS ORDERED: VANCOMYCIN 2,500 MG in SODIUM CHLORIDE 0.9% 500 ML 500 ML IVPB SCH (20:00)
[2018-08-09 20:28] LABS: Glucose,Whole Blood 120 mg/dL (75-99)
[2018-08-10 07:51] LABS: Glucose,Whole Blood 89 mg/dL (75-99)
[2018-08-10 07:55] LABS: Basophils % (A) 0 %; Eosinophils # (A) 0.4 k/uL (0-0.7); Eosinophils % (A) 4 %; HCT 44.6 % (39.0-53.0); HGB 14.3 gm/dL (13.0-17.5); Lymphocytes # (A) 1.4 k/uL (1.0-4.8); Lymphocytes % (A) 13 %; MCH 27.6 pg (25.0-35.0); MCV 86.3 fL (80.0-100.0); Mean Platelet Volume 6.8; Monocytes # (A) 0.9 k/uL (0-1.0); Monocytes % (A) 8 %; Neutrophils # (A) 8.2 k/uL (1.3-7.7); Neutrophils % (A) 74 %; Platelet Count 271 k/uL (150-450); RBC 5.17 m/uL (4.30-5.90); RDW 13.4 % (11.5-15.5); WBC 11.1 k/uL (3.8-10.6)
[2018-08-10 07:59] VITALS: BP 122/75; PULSE 70; RESP 17; TEMP 97.6
[2018-08-10 07:59] LABS: Anion Gap 3 mmol/L; Blood Urea Nitrogen 27 mg/dL (9-20); Calcium 8.4 mg/dL (8.4-10.2); Carbon Dioxide 34 mmol/L (22-30); Chloride 99 mmol/L (98-107); Glucose 90 mg/dL (74-99); Magnesium 2.1 mg/dL (1.6-2.3); Potassium 4.6 mmol/L (3.5-5.1); Sodium 136 mmol/L (137-145)
[2018-08-10] MEDS: hydrALAZINE HCL 50 MG TAB PO SCH (08:00)
[2018-08-10] MEDS: HYDROCHLOROTHIAZIDE 25 MG TAB PO SCH (08:00)
[2018-08-10] MEDS: CARVEDILOL 3.125 MG TAB PO SCH (08:00)
[2018-08-10] MEDS: ASPIRIN 81 MG PO SCH (08:00)
[2018-08-10] MEDS: PANTOPRAZOLE 40 MG TABLET PO SCH (08:01)
[2018-08-10] MEDS: ENOXAPARIN 40 MG/0.4 ML SYRINGE SQ SCH (08:01)
[2018-08-10] MEDS: FUROSEMIDE 40 MG TAB PO SCH (08:01)
[2018-08-10] MEDS: LISINOPRIL 20 MG TAB PO SCH (08:01)
[2018-08-10] MEDS: INSULIN ASPART 100 UNIT/ML 1 ML 10 ML VIAL SQ SCH (08:04)
[2018-08-10] MEDS ORDERED: predniSONE 20 MG TAB PO SCH (09:00)
--- NOTE | 2018-08-10 12:00 | P.PN ---
Subjective Progress Note Date: 08/10/18 Principal diagnosis: 2 hypoxic respiratory failure secondary to acute influenza pneumonia and congestive heart failure with systolic dysfunction A morbidly obese 28-year-old male patient, essentially negative past medical history, came into the hospital because of progressive shortness of breath and acute hypoxic respiratory failure. This afternoon, the patient was getting worse in terms of his pulmonary status and hypoxemia. He was on high flow oxygen 10 L per minute nasal cannula. He was still desaturating. Was tachypneic and in significant respiratory distress. Based on that he got moved to the intensive care unit where he was placed on a BiPAP at a pressure of 12/5 cm of water with an FiO2 of 60%. His pulse ox currently is at 92%. Feeling slightly better. Very much BiPAP dependent. His minute ventilation at this point is somewhat between 18-20 L. He is able to tolerate a full face mask without any major difficulties. Note that the patient was having episodes of fever. His most recent temperature was 100.0. He was checked for influenza A and mill turner to be positive. He also has a component of rhabdomyolysis with elevated CPK levels. Echo of the heart was done and showed also impairment of LV function with an ejection fraction of 40-45%. No segmental wall motion abnormalities. Pulmonary artery pressures are not elevated. Since he came to the ICU, the patient received a dose of Lasix and following that he diureses around 1500 mL of urine output. His blood gases while on the BiPAP showed a pH of 7.34 with a pCO2 of 50 and pO2 of 76 with an FiO2 of 60%. The patient's blood culture showed positive gram-positive cocci and gram-negative bacilli and this is one set out of 2 and probably contaminant. Antibiotic coverage was modified and the patient is currently on a combination of cefepime and Zithromax and the patient was given a dose of vancomycin. The patient was also placed on Tamiflu on IV Solu-Medrol. Lactic acid level is at 2.4. Troponins are minimally elevated at 0.1 and 0.07. BNP level is around 5000. On 08/07/2018, patient remains in the ICU, remains on high flow nasal cannula, desaturates very easily with any movement. Or any activity. Patient is steadily improving according to the nurses taking care of the patient, at one point he was about to be intubated, but he did well with BiPAP, and intermittently on high flow nasal cannula. Patient obviously is responding to diuretics, antibiotics, and Tamiflu. Remains on bronchodilators, remains on IV Solu-Medrol, chest x-ray continues to show evidence of bilateral interstitial edema hence I placed the patient back on diuretics, and resume his antibiotics including cefepime and vancomycin. Patient continues to have blood-tinged sputum. Sputum cultures are nondiagnostic. The blood cultures are negative except for contamination Patient was evaluated today on 08/08/2018, he is doing much better, breathing a lot easier. He is on 6 L high flow nasal cannula, saturating well, and feels clinically much better compared to yesterday. Chest x-ray in T showed significant improvement in his interstitial edema. All his labs were reviewed, all his medications were reviewed, we plan to continue antibiotics, and I plan to transfer the patient out of the ICU to a medical floor/monitored bed. Patient was reevaluated today on 08/09/2018, feels great, on 2 L nasal cannula, saturating in the mid 90s. Patient apparently made a significant improvement with antibiotics, anti-flu medication, and diuretics. No cough no wheezing no shortness of breath, no chest pain. Today I plan to transfer the patient out of the ICU to a remote/telemetry/ monitor bed on the regular medical floor. All his labs were reviewed, chest x-ray was reviewed from yesterday and looked dramatically improved. Electrolytes are normal. On 08/10/2018 patient seen in follow-up on medical surgical floor. He sitting up in the chair, in no acute distress, patient is tolerating ambulation, he does qualify for home oxygen, patient does desaturate with ambulation. Currently afebrile, no chills, no pleurisy, no worsening shortness of breath. Lung sounds are coarse, but no wheezes, no rales. Chest x-ray from 08/08/2018 showed improvement in patient's airspace disease. Patient will require follow- up on the outpatient basis and a repeat chest x-ray. Sputum, urine cultures were negative, blood culture from 08/01/2018 showed coagulase-negative staph, likely contaminant, follow blood cultures have been negative. Patient has been treated with Tamiflu, and V antibiotics. Clinically she is improving, no cough , no wheezing, no chest pain. Labs have been reviewed, the WBCs 11.1, hemoglobin is 14.3, sodium is 136, potassium is 4.6, chloride is 99, CO2 is 34, B1 is 27, creatinine 0.87. From pulmonary perspective patient is stable for discharge home today. Objective - Vital Signs Vital signs: Vital Signs Temp 97.6 F 08/10/18 07:00 Pulse 70 08/10/18 07:00 Resp 17 08/10/18 08:00 BP 122/75 08/10/18 07:00 Pulse Ox 93 L 08/10/18 07:00 Intake & Output 08/09/18 08/10/18 08/10/18 18:59 06:59 18:59 Intake Total 950 880 222 Balance 950 880 222 Intake: IV 700 40 Sodium Chloride 0.9% 1, 40 000 ml @ 100 mls/hr IV . Q10H TEQUILA Rx#:[id number] Sodium Chloride 0.9% 500 160 40 ml 500 ml @ 20 mls/hr IV .Q24H TEQUILA Rx#:[id number] Vancomycin 2,000 mg In 500 Sodium Chloride 0.9% 500 ml 500 ml @ 167 mls/hr IVPB Q8HR TEQUILA Rx#: [id number] Vancomycin 2,500 mg In 0 Sodium Chloride 0.9% 500 ml 500 ml @ 167 mls/hr IVPB Q12H TEQUILA Rx#: [id number] Oral 250 840 222 Other: Voiding Method Urinal Urinal Urinal # Voids 1 1 # Bowel Movements 1 - Exam Physical Exam: Revealed a 48-year-old obese white male, in no distress. On 2 L nasal cannula. HEENT:[ Short obese neck, Neck is supple.] [No neck masses.] [No thyromegaly.] [ No JVD.] PERRLA, EOMI, moist mucous membranes noted. Chest: [Symmetrical expansion, clear breath sound bilaterally no rhonchi and no wheezes. Cardiac Exam: Distant S1 and S2, , no S3 gallop, no murmur.] Abdomen: [Soft, nontender, no megaly, no rebound, no guarding, normal bowel sounds.] Extremities: [No clubbing, no edema, no cyanosis.] Neurological Exam: [No focal neurologic deficit.] Psychiatric: Normal mood, affect and mental status examination. Lymphatics: No lymphadenopathy. Skin: No rashes. - Labs CBC & Chem 7: 08/10/18 07:11 08/10/18 07:11 Labs: Abnormal Lab Results - Last 24 Hours (Table) 08/09/18 08/09/18 08/10/18 Range/Units 16:39 20:16 07:11 WBC 11.1 H (3.8-10.6) k/uL Neutrophils # 8.2 H (1.3-7.7) k/uL Sodium (137-145) mmol/L Carbon Dioxide (22-30) mmol/L BUN (9-20) mg/dL POC Glucose (mg/dL) 134 H 120 H (75-99) mg/dL 08/10/18 Range/Units 07:11 WBC (3.8-10.6) k/uL Neutrophils # (1.3-7.7) k/uL Sodium 136 L (137-145) mmol/L Carbon Dioxide 34 H (22-30) mmol/L BUN 27 H (9-20) mg/dL POC Glucose (mg/dL) (75-99) mg/dL Assessment and Plan Plan: 1 acute hypoxic respiratory failure secondary to acute influenza pneumonia and acute systolic congestive heart failure. 2 acute rhabdomyolysis, improving. 3 mild lactic acidosis on presentation, resolved. 4 positive blood cultures, contamination is suspected since it came back positive for coagulase-negative staph. 5 mild systolic dysfunction and congestive heart failure is strongly suspected. Ejection fraction is 40-45%. 6 morbid obesity, BMI of 63. Plan: Patient clinically continues to improve, he still tolerating ambulation, he does qualify for home oxygen as he desaturates with ambulation. No fever or chills, his chest x-ray 08/08/2018 showed improvement in the appearance of the airspace disease. Patient has been treated with Tamiflu, and antibiotics, cultures are negative. No cough, no wheezing no shortness of breath. Our perspective patient is stable for discharge home today, follow up with Dr. Sparks in the office in one week. I performed a history & physical examination of the patient and discussed their management with my nurse practitioner, Rosalinda Castillo. I reviewed the nurse practitioner's note and agree with the documented findings and plan of care. Lung sounds are positive for coarse breath sounds. The findings and the impression was discussed with the patient. I attest to the documentation by the nurse practitioner. Time with Patient: Less than 30
--- NOTE | 2018-08-10 16:04 | P.DS ---
Providers Date of admission: 08/01/18 19:14 Expected date of discharge: 08/10/18 Attending physician: Dillon Lerner MD Consults: 08/02/18 00:47 Consult Physician Routine Consulting Provider: Yadiel Hugo Consult Reason/Comments: myocarditis Do you want consulting provider notified?: Yes 08/02/18 14:31 Consult Physician Routine Consulting Provider: Hermelindo Sparks Consult Reason/Comments: pneumonia Do you want consulting provider notified?: Yes Primary care physician: Stated None Hospital Course: Discharge Diagnosis: 1. Pneumonia, influenza associated 2. Influenza A 3. ARDS 4. Acute hypoxic hypercapnic respiratory failure 5. Acute onset systolic cardiomyopathy with ejection fraction 40-45% 6. Elevated troponin secondary to hypoxemia, sepsis, or less likely ischemic etiology 7. Morbid obesity with BMI of 63 8. Hyponatremia secondary to dehydration 9. Elevated lactic acid 10. Mild rhabdo Hospital Course: Patient is a 28-year-old male with a past medical history of morbid obesity, family history of coronary artery disease and congestive heart failure who presented to the ER with complaints of shortness of breath and chest tightness. In the ER he underwent extensive testing. He was found to have influenza A, elevated troponin, elevated creatinine kinase, and EKG showing poor R-wave progression and T-wave inversion. He was given a dose of Tamiflu, and started on Rocephin and Zithromax. There was a concern for influenza A with superimposed pneumonia and possible myocarditis. He was subsequently admitted to the cardiac unit and cardiology was consulted. Serial troponins remained elevated. His CPK downtrend and slightly after IV fluids. Echocardiogram was completed which showed an ejection fraction of 40-45%. Patient became acutely more dyspneic with increasing oxygen requirements and was subsequently admitted to the ICU. Pulmonary was consulted. Patient was placed on BiPAP due to hypercapnic hypoxic respiratory failure. He was started on Lasix and did have good urine output. He has slightly elevated lactic acid however he did not receive a bolus secondary to his respiratory difficulties. Initial blood culture came back with gram-positive and gram negatives, which were ultimately confirmed as contaminant. While awiating final results and enlight of his worsening respiratory status his antibiotics were broadened to vancomycin, cefepime, and Zithromax. He initially was started on metoprolol but this was held secondary to bradycardia. He required BiPAP through the morning of 08/05. His zithromax was stopped on 08/05. He continued to require high flow with frequent desaturations on 08/07 with any movements. He completed his course of tamiflu and antibiotics. His oxygen was weaned and he was discharged home on 2L NC. 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 His short term disability paperwork was completed by me. He did have elevated blood pressures throughout his stay and tolerated coreg, hydralazine, and lisinopril. He was also place don lasix for fluid overload. On 08/10 he was discharged home on 2L home O2. She will follow up with Dr. Sparks for weaning of his oxygen therapy and sleep study. He'll follow up with Dr. Hugo for ischemic evaluation. Ideally he would like his PCP to be Dr. Santos as [place] has [employer] insurance, [place], and can nolonger seen his family doctor as they don't take Alexei. Patient seen and examined at bedside. Wanting to go home. Shortness of breath improved, no chest pain, no nausea, no dizziness, no edema. We discussed his medications at length. We also discussed need for follow-up and continued appointments in agreement. Vital signs reviewed and stable. General: non toxic, no distress, appears at stated age, obese Derm: warm, dry Head: atraumatic, normocephalic, symmetric Eyes: EOMI, no lid lag, anicteric sclera Mouth: no lip lesion, mucus membranes moist Cardiovascular: S1S2 reg, no murmur, positive posterior tibial pulse bilateral, Lungs: His breath sounds bilateral bases, no rhonchi, no rales , no accessory muscle use Abdominal: soft, nontender to palpation, no guarding, no appreciable organomegaly Ext: no gross muscle atrophy, no edema, no contractures Neuro: CN II-XI grossly intact, no focal neuro deficits Psych: Alert, oriented, appropriate affect A total of 45 minutes of time were spent preparing this complex discharge summary . Pertinent Studies: Echocardiogram-ejection fraction 40-45% Multiple chest s-aivk-yzywephwa infiltrates Procedures: PICC line placed on 08/03 Patient Condition at Discharge: Stable Plan - Discharge Summary Discharge Rx Participant: Yes New Discharge Prescriptions: New Aspirin 81 mg PO DAILY #30 chew Carvedilol [Coreg] 3.125 mg PO BID-W/MEALS #60 tab Furosemide [Lasix] 40 mg PO DAILY #30 tab guaiFENesin [Mucinex] 1,200 mg PO BID PRN #60 tab.er.12h PRN Reason: Cough hydrALAZINE HCL [Apresoline] 100 mg PO TID #90 tab Lisinopril [Zestril] 20 mg PO BID #60 tab Potassium Chloride ER [K-Dur 10] 10 meq PO DAILY #30 tab Discharge Medication List Aspirin 81 mg PO DAILY #30 chew 08/10/18 [Rx] Carvedilol [Coreg] 3.125 mg PO BID-W/MEALS #60 tab 08/10/18 [Rx] Furosemide [Lasix] 40 mg PO DAILY #30 tab 08/10/18 [Rx] Lisinopril [Zestril] 20 mg PO BID #60 tab 08/10/18 [Rx] Potassium Chloride ER [K-Dur 10] 10 meq PO DAILY #30 tab 08/10/18 [Rx] guaiFENesin [Mucinex] 1,200 mg PO BID PRN #60 tab.er.12h 08/10/18 [Rx] hydrALAZINE HCL [Apresoline] 100 mg PO TID #90 tab 08/10/18 [Rx] Follow up Appointment(s)/Referral(s): Yadiel Hugo MD [STAFF PHYSICIAN] - 1 Week (awaiting office to call back ) Hipolito Santos MD [STAFF PHYSICIAN] - 1 Week (Office will call patient with Dr Santos decision to accept patient or not) Hermelindo Sparks MD [STAFF PHYSICIAN] - 09/08/18 10:45 am Patient Instructions/Handouts: Influenza (DC) Activity/Diet/Wound Care/Special Instructions: Oxygen ordered through [facility]: #[phone] heart healthy, low sodium diet Activity as tolerated. Discharge Disposition: HOME SELF-CARE
== END 2018-08-10 12:55 | disposition home or self-care (01) | DRG 871 ==
LOC: EC 15:58 → 3SCARD 19:14 → 2SICU 08-02 15:56 → 4SSUR 08-09 17:19
PROVIDERS: ADMIT Family Medicine; ATTEND Family Medicine
PROC: 5A09457 Assistance with Respiratory Ventilation, 24-96 Consecutive Hours, Continuous Positive Airway Pressure (ICD-10-PCS; principal; 2018-08-02)
PROC: 05H633Z Insertion of Infusion Device into Left Subclavian Vein, Percutaneous Approach (ICD-10-PCS; 2018-08-03 16:30)
DX: A41.9 Sepsis, unspecified organism (principal); I50.23 Acute on chronic systolic (congestive) heart failure; J96.01 Acute respiratory failure with hypoxia; J96.02 Acute respiratory failure with hypercapnia; J10.01 Influenza due to other identified influenza virus with the same other identified influenza virus pneumonia; E66.2 Morbid (severe) obesity with alveolar hypoventilation; E87.1 Hypo-osmolality and hyponatremia; E87.2 Acidosis; I42.9 Cardiomyopathy, unspecified; M62.82 Rhabdomyolysis; Z68.44 Body mass index [BMI] 60.0-69.9, adult; I11.0 Hypertensive heart disease with heart failure; I08.1 Rheumatic disorders of both mitral and tricuspid valves; E86.0 Dehydration; R00.1 Bradycardia, unspecified; R77.9 Abnormality of plasma protein, unspecified; T44.7X5A Adverse effect of beta-adrenoreceptor antagonists, initial encounter; Z83.3 Family history of diabetes mellitus; Z82.49 Family history of ischemic heart disease and other diseases of the circulatory system; Z80.3 Family history of malignant neoplasm of breast
CPT/HCPCS: 36415; 36569; 36600; 71045; 71046; 76937; 80048; 80053; 80202; 81001; 82330; 82550; 82553; 82805; 83036; 83605; 83735; 83880; 84100; 84132; 84484; 85025; 85027; 85379; 85610; 85652; 85730; 87040; 87070; 87086; 87205; 87449; 87502; 93005; 93306; 94640; 94660; 96361; 96365; 96367; 96375; 99285

== ENCOUNTER 2018-08-13 07:35 | Inpatient (IN) | payer MEDICAID ==
[2018-08-13] MEDS ORDERED: NITROGLYCERIN OINT 1 INCH/GM PACKET TOPICAL STA (08:01)
[2018-08-13] MEDS ORDERED: ASPIRIN 81 MG PO STA (08:01)
--- NOTE | 2018-08-13 08:13 | ED ---
General Adult HPI - General Chief complaint: Chest Pain Stated complaint: Chest pain Time Seen by Provider: 08/13/18 07:35 Source: patient, RN notes reviewed Mode of arrival: wheelchair Limitations: no limitations - History of Present Illness Initial comments: This is a 28-year-old male who presents emergency Department who was recently in the hospital in the ICU with pneumonia and influenza. Patient comes in today because he woke up this morning started having some significant chest heaviness it seemed to dissipate when he got up and walked around a bit every time he laid down the chest heaviness was there. Patient states this in the left upper chest radiates a little bit into the arm. Patient denied any diaphoretic episodes. Patient denies any nausea vomiting diarrhea. Patient denied any shortness of breath or difficulty breathing. Patient states currently the pain is gone. Patient denies any recent fever chills per patient states he was sent home on 4 L of oxygen. History of high blood pressure does not believe he has any high cholesterol. Patient states has a strong family history of heart disease. Patient is also morbidly obese. - Related Data Previous Rx's Medication Instructions Recorded Aspirin 81 mg PO DAILY #30 chew 08/10/18 Carvedilol [Coreg] 3.125 mg PO BID-W/MEALS #60 tab 08/10/18 Furosemide [Lasix] 40 mg PO DAILY #30 tab 08/10/18 Lisinopril [Zestril] 20 mg PO BID #60 tab 08/10/18 Potassium Chloride ER [K-Dur 10] 10 meq PO DAILY #30 tab 08/10/18 guaiFENesin [Mucinex] 1,200 mg PO BID PRN #60 tab.er.12h 08/10/18 hydrALAZINE HCL [Apresoline] 100 mg PO TID #90 tab 08/10/18 Allergies Allergy/AdvReac Type Severity Reaction Status Date / Time No Known Allergies Allergy Verified 08/13/18 07:42 Review of Systems ROS Statement: Those systems with pertinent positive or pertinent negative responses have been documented in the HPI. ROS Other: All systems not noted in ROS Statement are negative. Past Medical History Past Medical History: No Reported History Additional Past Medical History / Comment(s): Morbid obesity History of Any Multi-Drug Resistant Organisms: None Reported Past Surgical History: No Surgical Hx Reported Additional Past Surgical History / Comment(s): pt denies having had any sx Past Anesthesia/Blood Transfusion Reactions: No Reported Reaction Additional Past Anesthesia/Blood Transfusion Reaction / Comment(s): pt stated never had any sx, never recieved any blood Past Psychological History: No Psychological Hx Reported Smoking Status: Never smoker - Past Family History Mother Family Medical History: Cancer, Diabetes Mellitus Additional Family Medical History / Comment(s): breast cancer Father Family Medical History: Congestive Heart Failure (CHF), Coronary Artery Disease (CAD), Diabetes Mellitus Additional Family Medical History / Comment(s): heart cath w/stents prior to quad cabg General Exam - General Exam Comments Initial Comments: GENERAL: Patient is well-developed and well-nourished. Patient is nontoxic and well- hydrated and is in no acute distress. ENT: Neck is soft and supple. No significant lymphadenopathy is noted. Oropharynx is clear. Moist mucous membranes. Neck has full range of motion without eliciting any pain. EYES: The sclera were anicteric and conjunctiva were pink and moist. Extraocular movements were intact and pupils were equal round and reactive to light. Eyelids were unremarkable. PULMONARY: Unlabored respirations. Good breath sounds bilaterally. No audible rales rhonchi or wheezing was noted. CARDIOVASCULAR: There is a regular rate and rhythm without any murmurs gallops or rubs. ABDOMEN: Soft and nontender with normal bowel sounds. Patient is morbidly obese. No palpable organomegaly was noted. There is no palpable pulsatile mass. SKIN: Skin is clear with no lesions or rashes and otherwise unremarkable. NEUROLOGIC: Patient is alert and oriented x3. Cranial nerves II through XII are grossly intact. Motor and sensory are also intact. Normal speech, volume and content. Symmetrical smile. MUSCULOSKELETAL: Normal extremities with adequate strength and full range of motion. LYMPHATICS: No significant lymphadenopathy is noted PSYCHIATRIC: Normal psychiatric evaluation. Normal interpersonal interactions appears functionally intact in deals appropriately with others. No signs of depression. No signs of anxiety. Limitations: no limitations Course Vital Signs 08/13/18 07:36 Temperature 98.3 F Pulse Rate 75 Respiratory 26 H Rate Blood Pressure 126/77 O2 Sat by Pulse 93 L Oximetry Medical Decision Making - Medical Decision Making Patient's EKG shows normal sinus rhythm at 85 bpm NE interval 172 QRS is 114 QT interval 376 QTC is 447. Patient's EKG shows no ST segment elevation or depression or T wave abnormalities are noted. X-ray showed bilateral pulmonary infiltrates. Computed tomography scan was done because the d-dimer was elevated and was nondiagnostic for PE but the consolidations were noted again bilaterally. I spoke with Dr. Santos his primary medical care doctor I admitted to Dr. Janina consulted the pcu rn. I wrote admitting orders. I started antibiotics in the emergency department continue those antibiotics on the floor. - Lab Data Result diagrams: 08/13/18 08:32 08/13/18 08:32 Lab Results 08/13/18 08/13/18 08/13/18 Range/Units 08:32 08:32 08:32 WBC 20.5 H (3.8-10.6) k/uL RBC 4.78 (4.30-5.90) m/uL Hgb 13.1 (13.0-17.5) gm/dL Hct 41.6 (39.0-53.0) % MCV 86.9 (80.0-100.0) fL MCH 27.3 (25.0-35.0) pg MCHC 31.4 (31.0-37.0) g/dL RDW 13.7 (11.5-15.5) % Plt Count 276 (150-450) k/uL Neutrophils % 82 % Lymphocytes % 7 % Monocytes % 7 % Eosinophils % 2 % Basophils % 0 % Neutrophils # 16.9 H (1.3-7.7) k/uL Lymphocytes # 1.3 (1.0-4.8) k/uL Monocytes # 1.5 H (0-1.0) k/uL Eosinophils # 0.3 (0-0.7) k/uL Basophils # 0.0 (0-0.2) k/uL PT (9.0-12.0) sec INR (<1.2) APTT (22.0-30.0) sec D-Dimer (<0.60) mg/L FEU Sodium 135 L (137-145) mmol/L Potassium 5.2 H (3.5-5.1) mmol/L Chloride 99 (98-107) mmol/L Carbon Dioxide 28 (22-30) mmol/L Anion Gap 8 mmol/L BUN 20 (9-20) mg/dL Creatinine 0.91 (0.66-1.25) mg/dL Est GFR (CKD-EPI)AfAm >90 (>60 ml/min/1.73 sqM) Est GFR (CKD-EPI)NonAf >90 (>60 ml/min/1.73 sqM) Glucose 98 (74-99) mg/dL Plasma Lactic Acid Micah (0.7-2.0) mmol/L Calcium 8.6 (8.4-10.2) mg/dL Magnesium 2.3 (1.6-2.3) mg/dL Total Bilirubin 1.1 (0.2-1.3) mg/dL AST 48 (17-59) U/L ALT 86 H (21-72) U/L Alkaline Phosphatase 81 (38-126) U/L Total Creatine Kinase 39 L (55-170) U/L CK-MB (CK-2) 1.1 (0.0-2.4) ng/mL CK-MB (CK-2) Rel Index 2.8 Troponin I <0.012 (0.000-0.034) ng/mL NT-Pro-B Natriuret Pep pg/mL Total Protein 6.1 L (6.3-8.2) g/dL Albumin 3.0 L (3.5-5.0) g/dL 08/13/18 08/13/18 08/13/18 Range/Units 08:32 08:32 08:32 WBC (3.8-10.6) k/uL RBC (4.30-5.90) m/uL Hgb (13.0-17.5) gm/dL Hct (39.0-53.0) % MCV (80.0-100.0) fL MCH (25.0-35.0) pg MCHC (31.0-37.0) g/dL RDW (11.5-15.5) % Plt Count (150-450) k/uL Neutrophils % % Lymphocytes % % Monocytes % % Eosinophils % % Basophils % % Neutrophils # (1.3-7.7) k/uL Lymphocytes # (1.0-4.8) k/uL Monocytes # (0-1.0) k/uL Eosinophils # (0-0.7) k/uL Basophils # (0-0.2) k/uL PT 10.3 (9.0-12.0) sec INR 1.1 (<1.2) APTT 24.3 (22.0-30.0) sec D-Dimer 2.82 H (<0.60) mg/L FEU Sodium (137-145) mmol/L Potassium (3.5-5.1) mmol/L Chloride (98-107) mmol/L Carbon Dioxide (22-30) mmol/L Anion Gap mmol/L BUN (9-20) mg/dL Creatinine (0.66-1.25) mg/dL Est GFR (CKD-EPI)AfAm (>60 ml/min/1.73 sqM) Est GFR (CKD-EPI)NonAf (>60 ml/min/1.73 sqM) Glucose (74-99) mg/dL Plasma Lactic Acid Micah 0.8 (0.7-2.0) mmol/L Calcium (8.4-10.2) mg/dL Magnesium (1.6-2.3) mg/dL Total Bilirubin (0.2-1.3) mg/dL AST (17-59) U/L ALT (21-72) U/L Alkaline Phosphatase (38-126) U/L Total Creatine Kinase (55-170) U/L CK-MB (CK-2) (0.0-2.4) ng/mL CK-MB (CK-2) Rel Index Troponin I (0.000-0.034) ng/mL NT-Pro-B Natriuret Pep 263 pg/mL Total Protein (6.3-8.2) g/dL Albumin (3.5-5.0) g/dL Disposition Clinical Impression: Bilateral pneumonia Disposition: ADMITTED IP TO THIS HOSP Referrals: Hipolito Santos MD [Primary Care Provider] - 1-2 days Time of Disposition: 10:46
[2018-08-13 08:47] LABS: Basophils % (A) 0 %; Eosinophils # (A) 0.3 k/uL (0-0.7); Eosinophils % (A) 2 %; HCT 41.6 % (39.0-53.0); HGB 13.1 gm/dL (13.0-17.5); Lymphocytes # (A) 1.3 k/uL (1.0-4.8); Lymphocytes % (A) 7 %; MCH 27.3 pg (25.0-35.0); MCHC 31.4 g/dL (31.0-37.0); MCV 86.9 fL (80.0-100.0); Mean Platelet Volume 6.9; Monocytes # (A) 1.5 k/uL (0-1.0); Monocytes % (A) 7 %; Neutrophils # (A) 16.9 k/uL (1.3-7.7); Neutrophils % (A) 82 %; Platelet Count 276 k/uL (150-450); RBC 4.78 m/uL (4.30-5.90); RDW 13.7 % (11.5-15.5); WBC 20.5 k/uL (3.8-10.6)
[2018-08-13 09:00] LABS: INR 1.1 (<1.2); Partial Thromboplastin Time 24.3 sec (22.0-30.0); Prothrombin Time 10.3 sec (9.0-12.0)
[2018-08-13 09:04] LABS: ALT 86 U/L (21-72); AST 48 U/L (17-59); Alkaline Phosphatase 81 U/L (38-126); Anion Gap 8 mmol/L; Blood Urea Nitrogen 20 mg/dL (9-20); Calcium 8.6 mg/dL (8.4-10.2); Carbon Dioxide 28 mmol/L (22-30); Chloride 99 mmol/L (98-107); Glucose 98 mg/dL (74-99); Magnesium 2.3 mg/dL (1.6-2.3); Potassium 5.2 mmol/L (3.5-5.1); Sodium 135 mmol/L (137-145); Total Bilirubin 1.1 mg/dL (0.2-1.3); Total Protein 6.1 g/dL (6.3-8.2)
[2018-08-13 09:12] LABS: Creatine Kinase 39 U/L (55-170); D-Dimer 2.82 mg/L FEU (<0.60)
--- NOTE | 2018-08-13 09:22 | XR ---
EXAMINATION TYPE: XR chest 2V DATE OF EXAM: 08/13/2018 HISTORY: difficulty breathing. REFERENCE: Previous study dated 08/08/2018. FINDINGS: Enlarged. There is worsening bilateral airspace disease. I cannot exclude tiny, bilateral effusions. IMPRESSION: 1. CARDIOMEGALY. 2. WORSENING BILATERAL AIRSPACE DISEASE.
[2018-08-13 09:25] LABS: Creatine Kinase MB 1.1 ng/mL (0.0-2.4); Troponin I <0.012 ng/mL (0.000-0.034)
[2018-08-13] MEDS ORDERED: PIPERACILLIN-TAZOBACTAM 3.375 GM in SODIUM CHLORIDE 0.9% 100 ML IVPB STA (09:35)
--- NOTE | 2018-08-13 10:26 | CT ---
EXAMINATION TYPE: CT chest angio for PE DATE OF EXAM: 08/13/2018 COMPARISON: None. HISTORY: Chest pain with SOB CT DLP: 1336.6 mGycm Automated exposure control for dose reduction was used. CONTRAST: CT Chest for pulmonary embolism performed with with IV Contrast, patient injected with 100 ml mL of I sovue 370. FINDINGS: The study is markedly compromised by patient motion and breathing artifact. There is bibasi lar consolidation. The heart is enlarged. There is a small left effusion. There is no significant axillary or mediastina l adenopathy. Combination of pleural fluid bolus and patient motion makes is nondiagnostic for pulmonary embolus. Limited views of the upper abdomen are unremarkable. There is hypertrophic spondylosis within the spine. IMPRESSION: 1. This examination is nondiagnostic for pulmonary embolus. 2. Cardiomegaly. 3. Degenerative change within the spine. 4. Bibasilar consolidation.
[2018-08-13] MEDS ORDERED: PNEUMONIA PROTOCOL UTILIZED 1 EACH MISC PO PRN (10:47)
[2018-08-13] MEDS ORDERED: LEVOFLOXACIN 750MG-D5W PMX 750 MG in DEXTROSE/WATER 1 150ML.BAG IVPB STA (10:47)
[2018-08-13 13:15] VITALS: BMI 56.0
[2018-08-13] MEDS: FUROSEMIDE 10 MG/ML 4 ML VIAL IV SCH ×3 (13:43→21:03)
[2018-08-13] MEDS: SODIUM CHLORIDE 0.9% 500 ML 500 ML IV SCH (13:44)
[2018-08-13] MEDS: ALBUTEROL NEBULIZED 2.5 MG/3 ML INHALATION PRN ×2 (16:25→20:33)
[2018-08-13] MEDS: PIPERACILLIN-TAZOBACTAM 3.375 GM in SODIUM CHLORIDE 0.9% 100 ML IVPB SCH (20:26)
[2018-08-13] MEDS: LISINOPRIL 20 MG TAB PO SCH (21:06)
[2018-08-13] MEDS: hydrALAZINE HCL 50 MG TAB PO SCH (21:06)
[2018-08-14] MEDS: PIPERACILLIN-TAZOBACTAM 3.375 GM in SODIUM CHLORIDE 0.9% 100 ML IVPB SCH ×2 (04:09→12:54)
[2018-08-14] MEDS: FUROSEMIDE 10 MG/ML 4 ML VIAL IV SCH ×2 (04:09→16:24)
[2018-08-14] MEDS ORDERED: CARVEDILOL 3.125 MG TAB PO SCH (07:30)
[2018-08-14] MEDS: hydrALAZINE HCL 50 MG TAB PO SCH ×2 (07:40→15:38)
[2018-08-14] MEDS: LISINOPRIL 20 MG TAB PO SCH (07:41)
[2018-08-14] MEDS: ALBUTEROL NEBULIZED 2.5 MG/3 ML INHALATION PRN ×2 (08:07→11:21)
[2018-08-14] MEDS ORDERED: LEVOFLOXACIN 750 MG TAB PO SCH (09:00)
--- NOTE | 2018-08-14 10:29 | P.CNPUL ---
History of Present Illness Consult date: 08/14/18 Requesting physician: Hipolito Santos Reason for consult: dyspnea, cough, chest pain, hypoxemia, pneumonia, abnormal CXR/CT Chief complaint: Chest heaviness History of present illness: Pulmonary consult dated 08/14/2018 This is a 28-year-old male presenting to the emergency room with chest heaviness. Patient recently discharged on 08/10/2018 for influenza and probable bacterial pneumonia. Patient required BiPAP on last admission for profound respiratory distress and hypoxemia. Patient was discharged home on 4 L nasal cannula and denies shortness of breath at that time. Patient stated he woke up in the middle of the night with upper left chest heaviness that radiated to left arm. Patient denied diaphoresis, nausea, or vomiting. Patient stated he is bringing up maier, thick sputum. Patient denies any pertinent medical history. However, patient has a history including hypertension, morbid obesity, and influenza pneumonia. Pt is a nonsmoker. Previous LV function showed 40-45%. A cardiac workup was completed. Cardiac enzymes were negative. D-dimer was slightly elevated. CT chest was negative for PE. Influenza A and B are negative on this admission. Patient currently on Levaquin by mouth and Zosyn IV piggyback. Also, patient may have Ventolin every 4 hours when necessary shortness of breath. Patient currently on 2 L nasal cannula. Vital signs remained stable. Blood cultures on his last admission were positive for coag-negative staph, likely a contaminant. Other blood urine and sputum sampling was all negative. Review of Systems A 14 point review of systems is positive for chest heaviness. In addition, he did cough and bring up some phlegm beginning today. There are no other major complaints. Past Medical History Past Medical History: No Reported History, Hypertension, Pneumonia Additional Past Medical History / Comment(s): Morbid obesity History of Any Multi-Drug Resistant Organisms: None Reported Past Surgical History: No Surgical Hx Reported Additional Past Surgical History / Comment(s): pt denies having had any sx Past Anesthesia/Blood Transfusion Reactions: No Reported Reaction Additional Past Anesthesia/Blood Transfusion Reaction / Comment(s): pt stated never had any sx, never recieved any blood Past Psychological History: No Psychological Hx Reported Additional Psychological History / Comment(s): pt is independant, drives, works in a machine shop. lives with his parents Smoking Status: Never smoker Past Alcohol Use History: Occasional Past Drug Use History: None Reported - Past Family History Mother Family Medical History: Cancer, Diabetes Mellitus Additional Family Medical History / Comment(s): breast cancer Father Family Medical History: Congestive Heart Failure (CHF), Coronary Artery Disease (CAD), Diabetes Mellitus Additional Family Medical History / Comment(s): heart cath w/stents prior to quad cabg Medications and Allergies Home Medications Medication Instructions Recorded Confirmed Type Aspirin 81 mg PO DAILY #30 chew 08/10/18 08/13/18 Rx Carvedilol [Coreg] 3.125 mg PO BID-W/MEALS #60 tab 08/10/18 08/13/18 Rx Furosemide [Lasix] 40 mg PO DAILY #30 tab 08/10/18 08/13/18 Rx Lisinopril [Zestril] 20 mg PO BID #60 tab 08/10/18 08/13/18 Rx Potassium Chloride ER [K-Dur 10] 10 meq PO DAILY #30 tab 08/10/18 08/13/18 Rx guaiFENesin [Mucinex] 1,200 mg PO BID PRN #60 tab.er.12h 08/10/18 08/13/18 Rx hydrALAZINE HCL [Apresoline] 100 mg PO TID #90 tab 08/10/18 08/13/18 Rx Allergies Allergy/AdvReac Type Severity Reaction Status Date / Time No Known Allergies Allergy Verified 08/13/18 12:38 Physical Exam Osteopathic Statement: *. No significant issues noted on an osteopathic structural exam other than those noted in the History and Physical/Consult. Vitals: Vital Signs Temp Pulse Pulse Resp BP BP Pulse Ox 08/14/18 08:17 88 08/14/18 08:09 86 88 L 08/14/18 05:00 98.5 F 75 17 127/77 94 L 08/13/18 20:58 97.9 F 83 16 111/53 93 L 08/13/18 20:44 82 08/13/18 20:34 82 08/13/18 16:38 80 08/13/18 16:26 80 08/13/18 13:54 98 F 87 22 127/66 94 L 08/13/18 11:30 98.0 F 80 38 H 138/71 95 08/13/18 11:00 89 16 144/73 93 L 08/13/18 09:30 78 19 154/88 95 Intake and Output 08/13/18 08/14/18 08/14/18 22:59 06:59 14:59 Intake Total 420 540 Balance 420 540 Intake: Intake, IV Titration 180 Amount Piperacillin-Tazobactam 3 100 .375 gm In Sodium Chloride 0.9% 100 ml @ 25 mls/hr IVPB Q8H TEQUILA Rx#: [id number] Sodium Chloride 0.9% 500 80 ml 500 ml @ 20 mls/hr IV .Q24H TEQUILA Rx#:[id number] Oral 240 540 Other: Voiding Method Toilet Toilet Urinal Urinal # Voids 2 1 No acute distress, patient alert and oriented 3. HEENT examination is grossly unremarkable. Mucous membranes are moist. No oral lesions. Neck supple. Full range of motion. No adenopathy thyromegaly or neck vein distention. Cardiovascular examination reveals regular rhythm rate. Patient's heart sounds are distant. S1-S2 normal. No S3 or S4. No discernible murmur noted. Lungs reveal scattered rhonchi and wheezes. Lung sounds are equal bilaterally and diminished throughout. Abdomen soft bowel sounds are heard. Patient's abdomen is obese. No masses or tenderness. Extremities are intact. Pulses palpable in all 4 extremities. No cyanosis clubbing or edema. Skin is without rash or lesion. Neurologic examination is brief but nonfocal. Results - Laboratory Findings CBC and BMP: 08/13/18 08:32 08/13/18 08:32 PT/INR, D-dimer PT 10.3 sec (9.0-12.0) 08/13/18 08:32 INR 1.1 (<1.2) 08/13/18 08:32 D-Dimer 2.82 mg/L FEU (<0.60) H 08/13/18 08:32 Abnormal lab findings: Abnormal Labs 08/13/18 08/13/18 08/13/18 08:32 08:32 08:32 WBC 20.5 H Neutrophils # 16.9 H Monocytes # 1.5 H D-Dimer Sodium 135 L Potassium 5.2 H ALT 86 H Total Creatine Kinase 39 L Total Protein 6.1 L Albumin 3.0 L 08/13/18 08:32 WBC Neutrophils # Monocytes # D-Dimer 2.82 H Sodium Potassium ALT Total Creatine Kinase Total Protein Albumin - Diagnostic Findings Chest x-ray: image reviewed CT scan - chest: image reviewed Additional studies: EKG reviewed. Assessment and Plan Plan: Assessment/ Plan #1 acute hypoxic respiratory failure secondary to influenza pneumonia. Chest x- ray showed cardiomegaly and worsening bilateral airspace disease. Bacterial super infection is likely, however sputum cultures were negative. Patient is covered with Levaquin and Zosyn. #2 chest heaviness likely to above. Cardiac workup was completed. Cardiac enzymes were negative, EKG was normal. #3 elevated d-dimer. CTA was negative for PE. #4 history of hypertension. Continue on current medications. #5 LV function mild to moderately impaired. EF between 40-45%. #6 morbid obesity BMI of 56.1 Time with Patient: Greater than 30
[2018-08-14] MEDS ORDERED: guaiFENesin 600 MG TABLET.ER PO SCH (11:30)
[2018-08-14] MEDS: ALBUTEROL NEBULIZED 2.5 MG/3 ML INHALATION SCH ×2 (11:57→15:36)
[2018-08-14 12:26] VITALS: BP 120/69; RESP 20; TEMP 98.3
[2018-08-14] MEDS: SODIUM CHLORIDE 0.9% 500 ML 500 ML IV SCH (12:57)
--- NOTE | 2018-08-14 13:47 | XR ---
EXAMINATION TYPE: XR chest 1V portable DATE OF EXAM: 08/14/2018 COMPARISON: 08/13/2018 HISTORY: Chest pain TECHNIQUE: Single frontal view of the chest is obtained. FINDINGS: Patchy perihilar and basilar infiltrates with cardiomegaly. The findings are nonspecific and may refl ect pneumonia versus pulmonary edema. Correlate clinically and progress studies are recommended. No s izable pleural effusions evident at this time. IMPRESSION: 1. No significant interval change. Correlate clinically and progress studies are advised.
[2018-08-14 15:49] VITALS: PULSE 88
--- NOTE | 2018-08-15 10:10 | P.DS ---
Providers Date of admission: 08/13/18 10:47 Expected date of discharge: 08/14/18 Attending physician: Hipolito Santos Consults: 08/13/18 10:47 Consult Physician Routine Consulting Provider: Whitney Martinez Consult Reason/Comments: Bilateral pneumonia Do you want consulting provider notified?: Yes Primary care physician: Hipolito Santos [facility] Course: This document serves as H&P and discharge summary 28-year-old male who presented to the emergency room on 08/13/2018 with a chief complaint of chest heaviness. The patient was recently admitted to the hospital and diagnosed with influenza and pneumonia. The patient was in the ICU at that time and requiring bipap for respiratory distress. He was discharged home on 08/10/2018 with home oxygen. The patient reports that he was having some chest heaviness and a cough. He denied nausea or vomiting. Denied fever or chills. Chest x-ray completed in the emergency room revealed cardiomegaly and worsening bilateral airspace disease. Repeat chest x-ray completed 08/14/2018 reveals no significant interval change. Laboratory data upon admission revealed white count of 20.5. Hemoglobin 13.1. Pletal count 276. Sodium 135. Potassium 5.2. BUN 20. Creatinine 0.91. Lactic acid 0.8. Magnesium 2.3. D-dimer was elevated at 2.82. The patient underwent CT angio which was negative for a pulmonary embolus, but did reveal bibasilar consolidation. Testing for influenza A and B was negative. The patient was started on antibiotics and admitted to the hospital under the care of Dr. Santos. Consultations were placed to pulmonary. The patient was evaluated by Dr. Mak and was cleared from a pulmonary standpoint to be discharged home on Levaquin, prednisone, and home oxygen. Vital signs have been stable. He is afebrile. Dr. Santos agreeable to discharge home today. He is to follow up with Dr. Santos this week. DISCHARGE DIAGNOSIS: Bilateral pneumonia secondary to influenza pneumonia Chest heaviness, secondary to above, troponin negative Recent hospitalization secondary to influenza and pneumonia Acute hypoxic respiratory failure requiring supplemental oxygen Hypertension Morbid obesity Nurse practitioner note has been reviewed by physician. Signing provider agrees with the documented findings, assessment, and plan of care. Plan - Discharge Summary Discharge Rx Participant: No New Discharge Prescriptions: New Levofloxacin [Levaquin] 750 mg PO DAILY #7 tab predniSONE See Taper PO DIRECTED #30 tab Albuterol Inhaler [Ventolin Hfa Inhaler] 1 - 2 puff INHALATION RT-Q6H PRN 30 Days #1 inhaler PRN Reason: Dyspnea Continue Aspirin 81 mg PO DAILY #30 chew Carvedilol [Coreg] 3.125 mg PO BID-W/MEALS #60 tab Furosemide [Lasix] 40 mg PO DAILY #30 tab guaiFENesin [Mucinex] 1,200 mg PO BID PRN #60 tab.er.12h PRN Reason: Cough hydrALAZINE HCL [Apresoline] 100 mg PO TID #90 tab Lisinopril [Zestril] 20 mg PO BID #60 tab Potassium Chloride ER [K-Dur 10] 10 meq PO DAILY #30 tab Discharge Medication List Aspirin 81 mg PO DAILY #30 chew 08/10/18 [Rx] Carvedilol [Coreg] 3.125 mg PO BID-W/MEALS #60 tab 08/10/18 [Rx] Furosemide [Lasix] 40 mg PO DAILY #30 tab 08/10/18 [Rx] Lisinopril [Zestril] 20 mg PO BID #60 tab 08/10/18 [Rx] Potassium Chloride ER [K-Dur 10] 10 meq PO DAILY #30 tab 08/10/18 [Rx] guaiFENesin [Mucinex] 1,200 mg PO BID PRN #60 tab.er.12h 08/10/18 [Rx] hydrALAZINE HCL [Apresoline] 100 mg PO TID #90 tab 08/10/18 [Rx] Albuterol Inhaler [Ventolin Hfa Inhaler] 1 - 2 puff INHALATION RT-Q6H PRN 30 Days #1 inhaler 08/14/18 [Rx] Levofloxacin [Levaquin] 750 mg PO DAILY #7 tab 08/14/18 [Rx] predniSONE See Taper PO DIRECTED #30 tab 08/14/18 [Rx] Follow up Appointment(s)/Referral(s): Edward Mak DO [Doctor of Osteopathic Medicine] - 09/08/18 10:45 am Hipolito Santos MD [Primary Care Provider] - 08/17/18 1:45 pm Patient Instructions/Handouts: Albuterol (By breathing), Prednisone (By mouth) , Levofloxacin (By mouth), Dyspnea (DC), Pneumonia (DC) Activity/Diet/Wound Care/Special Instructions: Patient to be discharged home with oxygen, which patient was prescribed prior to coming to hospital Discharge Disposition: HOME SELF-CARE
== END 2018-08-14 17:25 | disposition home or self-care (01) | DRG 193 ==
LOC: EC 07:35 → 3NMEDONC 10:47
PROVIDERS: ADMIT Family Medicine; ATTEND Family Medicine
DX: J11.00 Influenza due to unidentified influenza virus with unspecified type of pneumonia (principal); J96.01 Acute respiratory failure with hypoxia; Z68.43 Body mass index [BMI] 50.0-59.9, adult; E66.01 Morbid (severe) obesity due to excess calories; I10 Essential (primary) hypertension; Z79.82 Long term (current) use of aspirin; Z79.899 Other long term (current) drug therapy; Z80.3 Family history of malignant neoplasm of breast; Z82.49 Family history of ischemic heart disease and other diseases of the circulatory system; Z83.3 Family history of diabetes mellitus; R79.1 Abnormal coagulation profile; Z99.81 Dependence on supplemental oxygen
CPT/HCPCS: 36415; 71045; 71046; 71275; 80053; 82550; 82553; 83605; 83735; 83880; 84484; 85025; 85379; 85610; 85730; 87040; 87070; 87205; 87502; 93005; 94640; 94760; 96365; 99285

== ENCOUNTER → 2018-09-28 | Outpatient (CLI) | payer MEDICAID ==
--- NOTE | 2018-09-29 10:37 | ECHOF ---
Referral Reason:i50.9 - CHF MEASUREMENTS -------- HEIGHT: 182.9 cm WEIGHT: 163.3 kg BP: RVIDd: 3.1 cm (< 3.3) IVSd: 1.7 cm (0.6 - 1.1) LVIDd: 5.2 cm (3.9 - 5.3) LVPWd: 1.9 cm (0.6 - 1.1) IVSs: 2.0 cm LVIDs: 4.7 cm LVPWs: 2.0 cm Ao Diam: 3.6 cm (2.0 - 3.7) AV Cusp: 2.0 cm (1.5 - 2.6) LA Diam: 3.8 cm (2.7 - 3.8) MV EXCURSION: 18.351 mm (> 18.000) MV EF SLOPE: 90 mm/s (70 - 150) EPSS: 0.7 cm MV E Landen: 0.64 m/s MV DecT: 109 ms MV A Landen: 0.44 m/s MV E/A Ratio: 1.43 RAP: 5.00 mmHg RVSP: 14.99 mmHg FINDINGS -------- Sinus rhythm. Morbid Obesity The left ventricular size is normal. There is severe concentric left ventricular hypertrophy. Ove rall left ventricular systolic function is mild-moderately impaired with, an EF between 40 - 45 %. The right ventricle is normal in size. The left atrial size is normal. The right atrial size is normal. 1.5MG OF DEFINITY UTLIZED: 2 OR MORE WALL SEGMENTS NOT VISUALIZED. There is mild aortic valve sclerosis. There is no evidence of aortic regurgitation. Mild mitral regurgitation is present. The tricuspid valve was not well visualized. No regurgitation noted There is no evidence of pulmo nary hypertension. The right ventricular systolic pressure, as measured by Doppler, is 14.99mmHg. The pulmonic valve was not well visualized. There is no pericardial effusion. CONCLUSIONS -------- 1. Morbid Obesity 2. The left ventricular size is normal. 3. There is severe concentric left ventricular hypertrophy. 4. Overall left ventricular systolic function is mild-moderately impaired with, an EF between 40 - 45 %. 5. The right ventricle is normal in size. 6. The left atrial size is normal. 7. The right atrial size is normal. 8. 1.5MG OF DEFINITY UTLIZED: 2 OR MORE WALL SEGMENTS NOT VISUALIZED. 9. There is mild aortic valve sclerosis. 10. Mild mitral regurgitation is present. 11. The tricuspid valve was not well visualized. 12. No regurgitation noted 13. There is no evidence of pulmonary hypertension. 14. The right ventricular systolic pressure, as measured by Doppler, is 14.99mmHg. 15. The pulmonic valve was not well visualized. 16. There is no pericardial effusion. COLLECTION ADMINISTRATOR: Zuleima Rothman RDCS
== END | disposition home or self-care (01) ==
LOC: RADECHMAIN 08:04
PROVIDERS: ATTEND Family Medicine
DX: I34.0 Nonrheumatic mitral (valve) insufficiency (principal); E66.01 Morbid (severe) obesity due to excess calories; I50.9 Heart failure, unspecified
CPT/HCPCS: 93306; Q9950

== ENCOUNTER 2021-05-31 19:41 | Emergency (ER) | payer BC ==
[2021-05-31] MEDS ORDERED: IPRATROPIUM-ALBUTEROL 3 ML NEB INHALATION STA (20:22)
[2021-05-31 20:56] LABS: Basophils # (A) 0.1 k/uL (0-0.2); Basophils % (A) 2 %; Eosinophils % (A) 1 %; HCT 44.2 % (39.0-53.0); HGB 15.2 gm/dL (13.0-17.5); Lymphocytes # (A) 1.2 k/uL (1.0-4.8); Lymphocytes % (A) 22 %; MCHC 34.4 g/dL (31.0-37.0); MCV 87.2 fL (80.0-100.0); Mean Platelet Volume 7.1; Monocytes # (A) 0.4 k/uL (0-1.0); Monocytes % (A) 8 %; Neutrophils # (A) 3.5 k/uL (1.3-7.7); Neutrophils % (A) 65 %; Platelet Count 268 k/uL (150-450); RBC 5.07 m/uL (4.30-5.90); RDW 13.3 % (11.5-15.5); WBC 5.3 k/uL (3.8-10.6)
[2021-05-31 21:20] LABS: African American GFR (CKD) >90 (>60 ml/min/1.73 sqM); Anion Gap 10 mmol/L; Blood Urea Nitrogen 14 mg/dL (9-20); Carbon Dioxide 25 mmol/L (22-30); Chloride 98 mmol/L (98-107); Glucose 99 mg/dL (74-99); Non-African American GFR(CKD) >90 (>60 ml/min/1.73 sqM); Potassium 3.8 mmol/L (3.5-5.1); Sodium 133 mmol/L (137-145)
--- NOTE | 2021-05-31 21:39 | XR ---
EXAMINATION TYPE: XR chest 2V DATE OF EXAM: 05/31/2021 COMPARISON: Chest radiograph 09/08/2018 HISTORY: Shortness of breath TECHNIQUE: Frontal and lateral views of the chest are obtained. FINDINGS: Cardiac mediastinal silhouette appears within normal limits. Patchy left-sided airspace opa cities and to a lesser degree right-sided airspace opacities medially. No pleural effusion or pneumot horax. No acute osseous abnormality. Limited visualization of the upper abdomen appears unremarkable. IMPRESSION: Patchy airspace opacities bilaterally, left greater than right. Findings consistent with pneumonia.
[2021-05-31] MEDS ORDERED: ALBUTEROL NEBULIZED 2.5 MG/3 ML INHALATION STA (21:57)
[2021-05-31] MEDS ORDERED: DEXAMETHASONE SOD PHOSPHATE 10 MG/ML 1 ML VIAL IV STA (22:49)
--- NOTE | 2021-05-31 22:50 | ED ---
URI HPI - General Chief Complaint: Upper Respiratory Infection Stated Complaint: Fever Time Seen by Provider: 05/31/21 20:08 Source: patient, RN notes reviewed Mode of arrival: ambulatory - History of Present Illness Initial Comments: Patient is a 31-year-old male that presents to the emergency room complaining of shortness of breath for the past several days. He notes that since she had to start wearing his mask at work again a causes him to get respiratory issues. He notes that in 2019 he was hospitalized for bilateral pneumonia. Patient states he has a cough shortness of breath on exertion. He notes that he can emergency room to get evaluated. He denied any other issues or complaints time. 30-year-old male. He denied any chest pain headache nausea vomiting diarrhea constipation fever fatigue chills. - Related Data Home Medications Medication Instructions Recorded Confirmed Albuterol Sulfate [Albuterol 2 puff INHALATION RT-Q4H PRN 05/31/21 05/31/21 Sulfate Hfa] Furosemide [Lasix] 40 mg PO BID 05/31/21 05/31/21 Previous Rx's Medication Instructions Recorded Aspirin 81 mg PO DAILY #30 chew 08/10/18 Potassium Chloride ER [K-Dur 10] 10 meq PO DAILY #30 tab 08/10/18 carvediloL [Coreg] 3.125 mg PO BID-W/MEALS #60 tab 08/10/18 hydrALAZINE HCL [Apresoline] 100 mg PO TID #90 tab 08/10/18 lisinopriL [Zestril] 20 mg PO BID #60 tab 08/10/18 Allergies Allergy/AdvReac Type Severity Reaction Status Date / Time No Known Allergies Allergy Verified 05/31/21 21:29 Review of Systems ROS Statement: Those systems with pertinent positive or pertinent negative responses have been documented in the HPI. ROS Other: All systems not noted in ROS Statement are negative. Past Medical History Past Medical History: No Reported History, Hypertension, Pneumonia Additional Past Medical History / Comment(s): Morbid obesity History of Any Multi-Drug Resistant Organisms: None Reported Past Surgical History: No Surgical Hx Reported Additional Past Surgical History / Comment(s): pt denies having had any sx Past Anesthesia/Blood Transfusion Reactions: No Reported Reaction Additional Past Anesthesia/Blood Transfusion Reaction / Comment(s): pt stated never had any sx, never recieved any blood Past Psychological History: No Psychological Hx Reported Smoking Status: Never smoker Past Alcohol Use History: Occasional Past Drug Use History: None Reported - Past Family History Mother Family Medical History: Cancer, Diabetes Mellitus Additional Family Medical History / Comment(s): breast cancer Father Family Medical History: Congestive Heart Failure (CHF), Coronary Artery Disease (CAD), Diabetes Mellitus Additional Family Medical History / Comment(s): heart cath w/stents prior to quad cabg General Exam General appearance: alert, in no apparent distress, obese Head exam: Present: atraumatic, normocephalic, normal inspection Eye exam: Present: normal appearance, PERRL, EOMI. Absent: scleral icterus, conjunctival injection, periorbital swelling Neck exam: Present: normal inspection Respiratory exam: Present: normal lung sounds bilaterally. Absent: respiratory distress, wheezes, rales, rhonchi, stridor Cardiovascular Exam: Present: regular rate, normal rhythm, normal heart sounds. Absent: systolic murmur, diastolic murmur, rubs, gallop, clicks Extremities exam: Present: normal inspection, full ROM, normal capillary refill. Absent: tenderness, pedal edema, joint swelling, calf tenderness Neurological exam: Present: alert, oriented X3 Psychiatric exam: Present: normal affect, normal mood Skin exam: Present: warm, dry, intact, normal color. Absent: rash Course Vital Signs 05/31/21 05/31/21 19:55 20:40 Temperature 102.4 F H Pulse Rate 95 83 Respiratory 21 18 Rate Blood Pressure 159/96 O2 Sat by Pulse 94 L 95 Oximetry Medical Decision Making - Medical Decision Making 31-year-old male complaint shortness of breath over the past day. Labs, x-ray of the chest, Covid test ordered. Labs unremarkable. Covid test positive. Patient wishes to undergo monoclonal antibody infusion. Chest x-ray showed bilateral patchy infiltrates. 6 mg of Decadron ordered. Case discussed with Dr. Joseph, patient can discharge home after infusion. - Lab Data Result diagrams: 05/31/21 20:32 05/31/21 20:32 Lab Results 05/31/21 05/31/21 05/31/21 Range/Units 20:32 20:32 20:32 WBC 5.3 (3.8-10.6) k/uL RBC 5.07 (4.30-5.90) m/uL Hgb 15.2 (13.0-17.5) gm/dL Hct 44.2 (39.0-53.0) % MCV 87.2 (80.0-100.0) fL MCH 30.0 (25.0-35.0) pg MCHC 34.4 (31.0-37.0) g/dL RDW 13.3 (11.5-15.5) % Plt Count 268 (150-450) k/uL MPV 7.1 Neutrophils % 65 % Lymphocytes % 22 % Monocytes % 8 % Eosinophils % 1 % Basophils % 2 % Neutrophils # 3.5 (1.3-7.7) k/uL Lymphocytes # 1.2 (1.0-4.8) k/uL Monocytes # 0.4 (0-1.0) k/uL Eosinophils # 0.0 (0-0.7) k/uL Basophils # 0.1 (0-0.2) k/uL Sodium 133 L (137-145) mmol/L Potassium 3.8 (3.5-5.1) mmol/L Chloride 98 (98-107) mmol/L Carbon Dioxide 25 (22-30) mmol/L Anion Gap 10 mmol/L BUN 14 (9-20) mg/dL Creatinine 1.04 (0.66-1.25) mg/dL Est GFR (CKD-EPI)AfAm >90 (>60 ml/min/1.73 sqM) Est GFR (CKD-EPI)NonAf >90 (>60 ml/min/1.73 sqM) Glucose 99 (74-99) mg/dL Calcium 9.0 (8.4-10.2) mg/dL Coronavirus (PCR) Detected A (Not Detectd) - Radiology Data Radiology results: report reviewed, image reviewed Chest x-ray: Patchy airspace opacities bilaterally left greater than right. Findings consistent with pneumonia. Disposition Clinical Impression: COVID Disposition: HOME SELF-CARE Condition: Stable Instructions (If sedation given, give patient instructions): Coronavirus Disease 2019 (COVID-19) Additional Instructions: Please return to the Emergency Department if symptoms worsen or any other concerns. Follow-up with primary care as needed. Quarantine per CDC guidelines. Is patient prescribed a controlled substance at d/c from ED?: No Referrals: Charlee Feliz DO [Primary Care Provider] - 1-2 days Time of Disposition: 22:52
[2021-05-31] MEDS ORDERED: ACETAMINOPHEN TAB 325 MG TAB PO STA (22:52)
[2021-05-31] MEDS ORDERED: IBUPROFEN 600 MG TAB PO STA (22:52)
[2021-05-31] MEDS ORDERED: SODIUM CHLORIDE 0.9% 50 ML IVPB ONE (23:00)
[2021-05-31] MEDS ORDERED: CASIRIVIMAB (REGN10933) (EUA) 600 MG, IMDEVIMAB (REGN10987) (EUA) 600 MG in SODIUM CHLO... IVPB ONE (23:00)
[2021-06-01 00:54] VITALS: BP 142/69; PULSE 82; RESP 20; TEMP 100.6
== END 2021-06-01 00:51 | disposition home or self-care (01) ==
LOC: EC 19:41
DX: U07.1 COVID-19 (principal); E66.01 Morbid (severe) obesity due to excess calories; Z79.82 Long term (current) use of aspirin; Z79.899 Other long term (current) drug therapy; Z68.1 Body mass index [BMI] 19.9 or less, adult
CPT/HCPCS: 36415; 94640; 80048; 85025; 87635; 71046; 99285; 96365; 96375; J1100; Q0243